=== PATIENT | female | born 1975 | race Caucasian/White ===

== ENCOUNTER 2020-08-09 14:16 | Outpatient (CLI) | payer BC, SELFPAY ==
--- NOTE | ~2020-08-09 | US_ITS ---
EXAMINATION: US pelvic complete w TV DATE: 08/09/2020 14:58 INDICATION: Post endometrial ablation syndrome. Pelvic pain and bleeding. TECHNIQUE: Multiple transabdominal and transvaginal sonographic images of the pelvis were obtained. COMPARISON: None. FINDINGS: TRANSABDOMINAL ULTRASOUND: The uterus measures 9.2 x 5.0 x 6.1 cm. There is no free fluid in the pelvis. TRANSVAGINAL ULTRASOUND: The endometrial complex measures 4 mm in thickness including trace fluid. The right ovary measures 1. 4 x 1.9 x 1.3 cm. The left ovary measures 2.2 x 2.5 x 1.2 cm. There is normal vascular flow in the ov taina. IMPRESSION: 1. Normal pelvis. Reviewed, dictated and finalized at location A. DESIGN ENGINEER IMPRESSION: 1. Normal pelvis.
[2020-08-09 15:36] LABS: Basophils Percent Auto 0.5 % (0.2-1.2); Eosinophils Absolute Auto 0.4 K/mm3 (0-0.3); Eosinophils Percent Auto 4.6 % (0-4.4); Hematocrit 44.6 % (37.0-47.0); Hemoglobin 14.5 g/dL (12.0-15.0); Immature Granulocyte Absolute 0.02 K/mm3 (0.00-0.031); Immature Granulocyte Percent A 0.2 % (0-0.5); Lymphocytes Absolute Auto 2.07 K/mm3 (0.9-3.2); Lymphocytes Percent Auto 25.5 % (18.3-44.2); Mean Corpuscular HGB Conc 32.5 g/dl (32-36); Mean Corpuscular Hemoglobin 29.5 pg (26-34); Mean Corpuscular Volume 90.7 fl (80-100); Monocytes Absolute Auto 0.5 K/mm3 (0.1-0.6); Monocytes Percent Auto 6.5 % (2.6-8.5); Neutrophils Absolute Auto 5.1 K/mm3 (1.3-6.7); Neutrophils Percent Auto 62.7 % (45.5-73.1); Platelet Count Result 322 k/mm3 (150-375); Red Blood Count 4.92 M/mm3 (4.2-5.4); Red Cell Distribution Width 12.7 % (11.5-14.5); White Blood Count 8.1 K/mm3 (4.5-10.0)
[2020-08-09 15:46] LABS: Hemoglobin A1C 5.3 % (<5.7)
[2020-08-09 15:50] LABS: Alanine Aminotransferase 23 U/L (4-35); Albumin Level 4.3 g/dL (3.5-5.1); Alkaline Phosphatase 73 U/L (38-126); Anion Gap 4 mmol/L (8-16); Aspartate Amino Transferase 28 U/L (14-36); Bilirubin,Total 0.5 mg/dL (0.2-1.3); Blood Urea Nitrogen 12 mg/dL (7-17); Calcium 9.2 mg/dL (8.4-10.2); Carbon Dioxide 32 mmol/L (22-30); Chloride 102 mmol/L (98-107); Cholesterol 261 mg/dL (0-200); Estimated Glomerular Filt Rate > 60; Glucose 88 mg/dL (65-105); HDL Direct 61 mg/dL; Potassium 4.2 mmol/L (3.4-5.0); Sodium 138 mmol/L (137-145); Triglycerides 117 mg/dL (<150)
[2020-08-09 16:01] LABS: LDL Cholesterol Direct 170 mg/dL
[2020-08-09 16:40] LABS: Iron 95 ug/dL (37-170)
[2020-08-09 16:49] LABS: Percent Iron Saturation 23 % (20-50)
[2020-08-12 11:31] LABS: FSH 91.7 mIU/mL (***); Prolactin 6.4 ng/mL (***)
[2020-08-12 16:05] LABS: DHEA-Sulfate 74 mcg/dL (19-231)
[2020-08-13 08:34] LABS: Testosterone Total 41 ng/dL (2-45)
[2020-08-15 23:06] LABS: Estradiol, Ultrasensitive 7 pg/mL
== END 2020-08-09 14:17 | disposition home or self-care (01) ==
PROVIDERS: Visit Provider Obstetrics & Gynecology
DX: Z78.0 Asymptomatic menopausal state (principal); N99.85 Post endometrial ablation syndrome; D64.9 Anemia, unspecified
CPT/HCPCS: 36415; 76830; 76856; 80053; 80061; 82627; 82670; 82728; 83001; 83036; 83540; 83550; 84146; 84403; 84443; 85025

== ENCOUNTER 2021-08-02 11:14 | Emergency (ER) | payer BC, SELFPAY ==
--- NOTE | ~2021-08-02 | XR_ITS ---
XR chest 1V portable DATE: 08/02/2021 12:28 INDICATION: Cough TECHNIQUE: Portable AP chest on 08/02/2021 2021 hours COMPARISON: None FINDINGS: Normal heart size. No hilar or mediastinal enlargement. No pulmonary infiltrate or consolid ation, pleural effusion or pulmonary vascular congestion or pneumothorax. IMPRESSION: No active cardiopulmonary disease Reviewed, dictated and finalized at location A. ECTOR WREATH
[2021-08-02 11:19] VITALS: BP 117/89; PULSE 90; RESP 16; TEMP 36.2; O2SAT 100
[2021-08-02 11:44] VITALS: O2SAT 98
--- NOTE | 2021-08-02 15:40 | ED.GENADULT ---
HPI - General Adult General Chief complaint: Upper Respiratory Infection <Nikki Nuñez PA-C - Last Filed: 08/02/21 15:45> Stated complaint: throat pain <CHATO Menchaca Last Filed: 08/02/21 15:45> Time Seen by Provider: 08/02/21 11:42 <Nikki Nuñez PA-C - Last Filed: 08/02/21 15:45> Source: patient <CHATO Menchaca Last Filed: 08/02/21 15:45> Mode of arrival: ambulatory <CHATO Menchaca Last Filed: 08/02/21 15:45> Limitations: no limitations <CHATO Menchaca Last Filed: 08/02/21 15:45> History of Present Illness HPI narrative: Patient is a 45-year-old female presenting with chief complaint of sore throat, cough, fatigue, headache, body aches over the past 3 to 4 days. Patient reports that she received her second COVID vaccination, but the day prior was with her sister who has now tested COVID-positive. Patient reports muscle soreness. Patient reports she has been taking Mucinex as her cough seems congested. Patient denies shortness of breath. Patient denies inability to eat or drink fluids. Patient denies chest pain, syncope, neurological deficits or any other emergent symptoms. <Nikki Nuñez PA-C - Last Filed: 08/02/21 15:45> Related Data Allergies/adverse reactions: Allergies Allergy/AdvReac Type Severity Reaction Status Date / Time No Known Allergies Allergy Verified 08/02/21 11:45 <Nikki Nuñez PA-C - Last Filed: 08/02/21 15:45> Review of Systems Review of Systems: CONSTITUTIONAL: Reports body aches denies fever, chills, or sweats. EYES: Denies visual changes, redness, or discharge. ENT: Reports otalgia, sore throat, congestion denies rhinorrhea CARDIOVASCULAR: Denies chest pain, palpitations, or edema. RESPIRATORY: Reports cough and chest congestion GASTROINTESTINAL: Denies abdominal pain, nausea, vomiting, or diarrhea. GENITOURINARY: Denies dysuria or hematuria. SKIN: Denies rash or itching. MUSCULOSKELETAL: Denies back pain, joint pain, or myalgia. NEUROLOGIC: Denies headache, numbness, dizziness, or weakness. PSYCHIATRIC: Denies anxiety or depression. <Nikki Nuñez PA-C - Last Filed: 08/02/21 15:45> Exam Narrative: GENERAL: Well-appearing, well-nourished, and in no acute distress. HEAD: Normocephalic, atraumatic. EYES: PERRLA and EOMI. ENT: Nares clear, no rhinorrhea or epistaxis. Mucous membranes moist. Oropharynx with mild irritation, no tonsillar hypertrophy exudate or other lesions. Airway patent. Bilateral TMs pearly wellington-serous fluid noted to the left ear without erythema CHEST: Clear to auscultation. No respiratory distress. No wheezes rales or rhonchi. Oxygen saturation 98% on room air. HEART: Regular rate and rhythm. EXTREMITIES: Normal range of motion. No edema. SKIN: Warm, dry, no rash. NEURO: No focal deficits. Alert and oriented x3. PSYCH: Normal mood and affect. <Nikki Nuñez PA-C - Last Filed: 08/02/21 15:45> Course SUPERVISOR TYPE DISK QUALITY CONTROL/PA Physician Supervision For this patient encounter, I reviewed the SUPERVISOR TYPE DISK QUALITY CONTROL or PA documentation, treatment plan, and medical decision making <Luis A Lopez MD - Last Filed: 08/02/21 16:43> Vital Signs Vital signs: Vital Signs Temperature 97.2 F L 08/02/21 11:19 Pulse Rate 90 08/02/21 11:19 Respiratory Rate 16 08/02/21 11:19 Blood Pressure 117/89 08/02/21 11:19 Pulse Oximetry 100 08/02/21 11:19 Temperature 97.2 F L 08/02/21 11:19 Pulse Rate 90 08/02/21 11:19 Respiratory Rate 16 08/02/21 11:19 Blood Pressure 117/89 08/02/21 11:19 Pulse Oximetry 98 08/02/21 11:44 <Nikki Nuñez PA-C - Last Filed: 08/02/21 15:45> Vital Signs Temperature 97.2 F L 08/02/21 11:19 Pulse Rate 90 08/02/21 11:19 Respiratory Rate 16 08/02/21 11:19 Blood Pressure 117/89 08/02/21 11:19 Pulse Oximetry 100 08/02/21 11:19 Temperature 97.2 F L 08/02/21 11:19 Pulse Rate 90 08/02/21 11:19 Respiratory Rate 16 08/02/21 1
[2021-08-02 21:12] LABS: SARS-CoV-2 RNA PCR Positive
== END 2021-08-02 13:33 | disposition home or self-care (01) ==
PROVIDERS: Physician Assistant; Emergency Provider Emergency Medicine
DX: U07.1 COVID-19 (principal)
CPT/HCPCS: 71045; 87081; 87804; 87880; 99283; C9803; U0003; U0005

== ENCOUNTER 2021-12-04 14:38 | Outpatient (CLI) | payer BC, SELFPAY ==
[2021-12-04 15:01] LABS: Basophils Percent Auto 0.6 % (0.2-1.2); Eosinophils Absolute Auto 0.3 K/mm3 (0-0.3); Eosinophils Percent Auto 4.5 % (0-4.4); Hematocrit 43.4 % (37.0-47.0); Hemoglobin 13.6 g/dL (12.0-15.0); Immature Granulocyte Absolute 0.02 K/mm3 (0.00-0.031); Immature Granulocyte Percent A 0.3 % (0-0.5); Lymphocytes Percent Auto 35.1 % (18.3-44.2); Mean Corpuscular HGB Conc 31.3 g/dl (32-36); Mean Corpuscular Hemoglobin 28.4 pg (26-34); Mean Corpuscular Volume 90.6 fl (80-100); Monocytes Absolute Auto 0.6 K/mm3 (0.1-0.6); Monocytes Percent Auto 8.7 % (2.6-8.5); Neutrophils Absolute Auto 3.6 K/mm3 (1.3-6.7); Neutrophils Percent Auto 50.8 % (45.5-73.1); Platelet Count Result 326 k/mm3 (150-375); Red Blood Count 4.79 M/mm3 (4.2-5.4); Red Cell Distribution Width 12.2 % (11.5-14.5); White Blood Count 7.1 K/mm3 (4.5-10.0)
[2021-12-04 15:51] LABS: Free T4 Free Thyroxine 1.26 ng/mL (0.78-2.19)
[2021-12-04 18:03] LABS: Alanine Aminotransferase 38 U/L (6-35); Albumin Level 4.3 g/dL (3.5-5.1); Alkaline Phosphatase 73 U/L (38-126); Anion Gap 4 mmol/L (8-16); Aspartate Amino Transferase 37 U/L (14-36); Bilirubin,Total 0.3 mg/dL (0.2-1.3); Blood Urea Nitrogen 10 mg/dL (7-17); Calcium 9.3 mg/dL (8.4-10.2); Carbon Dioxide 30 mmol/L (22-30); Chloride 103 mmol/L (98-107); Cholesterol 287 mg/dL (0-200); Estimated Glomerular Filt Rate > 60; Glucose 91 mg/dL (65-110); HDL Direct 52 mg/dL; Potassium 4.3 mmol/L (3.4-5.0); Sodium 137 mmol/L (137-145); Triglycerides 172 mg/dL (<150)
[2021-12-04 18:14] LABS: LDL Cholesterol Direct 169 mg/dL
[2021-12-04 18:32] LABS: Total Triiodothyronine (T3) 1.23 NG/ML (0.97-1.69)
== END 2021-12-04 14:39 | disposition home or self-care (01) ==
PROVIDERS: PCP Emergency Medicine; Visit Provider Emergency Medicine
DX: Z13.6 Encounter for screening for cardiovascular disorders (principal); E04.9 Nontoxic goiter, unspecified; R53.83 Other fatigue
CPT/HCPCS: 36415; 80053; 80061; 84439; 84443; 84480; 85025

== ENCOUNTER 2022-02-27 13:16 | Emergency (ER) | payer BC, SELFPAY ==
--- NOTE | ~2022-02-27 | XR_ITS ---
XR thoracic spine 3V 02/27/2022 14:01 Indication: Back pain Procedure: 3 views thoracic spine Comparison: No prior studies for comparison. Findings: Vertebral body heights are maintained. Pedicles intact. No paraspinal soft tissue abnormali ty. Surrounding osseous structures within normal limits. There is normal thoracic kyphosis. No parasp inal soft tissue abnormality. Impression: 1: No significant abnormality of the thoracic spine. Reviewed, dictated and finalized at location B. Impression: 1: No significant abnormality of the thoracic spine.
[2022-02-27 13:26] VITALS: BP 132/101; PULSE 104; RESP 16; TEMP 36.8; O2SAT 99
--- NOTE | 2022-02-27 13:38 | ED.BACK ---
HPI - Back Pain/Injury General Chief Complaint: Back Pain/Injury Stated Complaint: back pain Time Seen by Provider: 02/27/22 13:38 Source: patient, RN notes reviewed and old records reviewed Mode of arrival: ambulatory Limitations: no limitations History of Present Illness HPI Narrative: 46 year old female who presents to [facility] care with complaints of mid back discomfort, tightness to muscles in her thoracic back region since riding [place] [employer] about 2 weeks ago. Patient reports tightness feeling in mid back area and increased incidence of migraines. Patient reports that she has been taking Excedrin Migraine for her discomfort. Patient denies any radiation of pain to her arms or anytingling or numbness to her arms or fingers. MD elicited complaint: back pain Onset (ago): week(s) (2) Pain scale (0-10): 8 Location: thoracic spine Treatments prior to arrival: other (Excedrin migraine) Work related injury: No Related Data Allergies Allergy/AdvReac Type Severity Reaction Status Date / Time acetaminophen [From Vicodin] AdvReac Migraine Verified 12/04/21 13:57 hydrocodone [From Vicodin] AdvReac Migraine Verified 12/04/21 13:57 ibuprofen AdvReac Abdominal Verified 12/04/21 13:57 Pain Review of Systems Review of Systems: CONSTITUTIONAL: Denies fever, chills, or sweats. EYES: Denies visual changes, redness, or discharge. ENT: Denies rhinorrhea, congestion, sore throat, or otalgia. CARDIOVASCULAR: Denies chest pain, palpitations, or edema. RESPIRATORY: Denies cough or dyspnea. GASTROINTESTINAL: Denies abdominal pain, nausea, vomiting, or diarrhea. GENITOURINARY: Denies dysuria or hematuria. SKIN: Denies rash or itching. MUSCULOSKELETAL: Positive for thoracic back pain, joint pain, or myalgia. NEUROLOGIC: Reports increase in migraine headaches since having back pain,no numbness, or weakness. PSYCHIATRIC: Denies anxiety or depression. All systems reviewed & are unremarkable except as noted in HPI and below PMFSH Past Medical History Medical History Bronchitis Chicken pox Chills Hives Itching Miscarriage Pneumonia Trigger finger (~2011) Surgical History Surgical History History of endometrial ablation (~2018) History of tubal ligation (~1998) Family History Family History Father No known problems Mother No known problems Sibling Suicide Social History Social History Social History: Patient drinks caffeine twice weekly. 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 There is no relevant family history pertinent to the presenting complaint Exam Narrative: GENERAL: Well-appearing, well-nourished, and in no acute distress. HEAD: Normocephalic, atraumatic. EYES: PERRLA and EOMI. ENT: Nares clear, no rhinorrhea or epistaxis. Mucous membranes moist.TM's normal throat with no lesions or swelling NECK: Supple.no lymphadenopathy CHEST: Clear to auscultation. No respiratory distress.SAO2 99% on room air HEART: Regular rate and rhythm. No murmur heard. Normal peripheral pulses. ABDOMEN: Soft, nontender, nondistended, normal active bowel sounds. EXTREMITIES: Normal range of motion. No edema.Reported discomfort to mid back region for the past 2 weeks after riding [employer], patient denies any radiation of pain to her arms with no tingling or numbness to extremities. Patient states pa
== END 2022-02-27 14:24 | disposition home or self-care (01) ==
PROVIDERS: Emergency Provider Registered Nurse
DX: M54.6 Pain in thoracic spine (principal)
CPT/HCPCS: 72072; 99213; G0463

== ENCOUNTER 2022-03-09 11:56 | Emergency (ER) | payer BC, SELFPAY ==
[2022-03-09 12:15] VITALS: BP 133/105; PULSE 91; RESP 16; TEMP 36.6; O2SAT 99
--- NOTE | 2022-03-09 13:27 | ED.GENADULT ---
HPI - General Adult General Chief complaint: Skin/Abscess/Foreign Body Stated complaint: rash Source: patient Mode of arrival: ambulatory Limitations: no limitations History of Present Illness HPI narrative: Patient presents for evaluation of rash to the right side of her back since yesterday. She states she was riding a rollercoaster recently and experienced some pain in the middle of the back. Last week she developed some right sided back pain which she attributed to compensatory positioning. She states that pain improved. Last night she noted a red spot to right side of her back. This morning she developed several additional spots in the same region. She states she popped one of them. She informed me that she does not have associated pain or pruritis but later tells me she has both symptoms. 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 No new lotions, soaps, detergents or topical products. She is not using any medications to assist with her symptoms. She has a hx of chickenpox and states she has been diagnosed with shingles five times. She states she has never actually had viral swab performed for this diagnosis and diagnosis was made based on physical exam alone. She is wondering if perhaps she has monkeypox as she has also experienced headache, body aches and fatigue. Related Data Allergies Allergy/AdvReac Type Severity Reaction Status Date / Time ibuprofen AdvReac Abdominal Verified 03/09/22 12:08 Pain Review of Systems Review of Systems: CONSTITUTIONAL: Reports recent fatigue. Denies fever, chills, or sweats. EYES: Denies visual changes, redness, or discharge. ENT: Denies rhinorrhea, congestion, sore throat, or otalgia. CARDIOVASCULAR: Denies chest pain, palpitations, or edema. RESPIRATORY: Denies cough or dyspnea. GASTROINTESTINAL: Denies abdominal pain, nausea, vomiting, or diarrhea. GENITOURINARY: Denies dysuria or hematuria. SKIN: Reports rash to right side of her pain. Reports any denies presence of itching MUSCULOSKELETAL: Reports and denies back pain. Reports recent body aches NEUROLOGIC: Reports recent headaches, none currently. Denies numbness, dizziness, or weakness. PSYCHIATRIC: Denies anxiety or depression. [facility] Past Medical History Medical History Bronchitis Chicken pox Chills Hives Itching Miscarriage Pneumonia Trigger finger (~2011) Surgical History Surgical History History of endometrial ablation (~2017) History of tubal ligation (~1998) Family History Family History Father No known problems Mother No known problems Sibling Suicide Social History Social History Social History: Patient drinks caffeine twice weekly. 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 HEAD: Normocephalic, atraumatic. EYES: PERRLA and EOMI. ENT: Nares clear, no rhinorrhea or epistaxis. Mucous membranes moist. Oropharynx without tonsillar hypertrophy exudate or other lesions. Bilateral TMs pearly wellington nonbulging NECK: Supple. No adenopathy or masses. No carotid bruits or JVD CHEST: Clear to auscultation. No respiratory distress. No wheezes rales or rhonchi HEART: Regular rate and rhythm. No murmur heard. Normal peripheral pulses. ABDOMEN: Soft, nontender, nondistended, normal active bowel sounds. EXTREMITIES: Normal range of motion. No
== END 2022-03-09 13:32 | disposition home or self-care (01) ==
PROVIDERS: Emergency Provider Nurse Practitioner; PCP Emergency Medicine
DX: R21 Rash and other nonspecific skin eruption (principal)
CPT/HCPCS: 87255; 99213; G0463

== ENCOUNTER 2022-08-21 17:36 | Emergency (ER) | payer MEDICAID, SELFPAY ==
--- NOTE | ~2022-08-21 | XR_ITS ---
EXAMINATION: XR abdomen/kub 1V DATE: 08/21/2022 18:09 INDICATION: Constipation TECHNIQUE: A supine view of the abdomen on 2 radiographs was obtained. COMPARISON: None. FINDINGS: Prominent gaseous distention of the stomach. There is a mildly dilated loop of small bowel measuring up to 4.2 cm in the left abdomen. There are multiple additional gas-filled but not likely dilated loo ps of large and small bowel scattered throughout the abdomen. Bones are unremarkable. IMPRESSION: 1. Mild dilation of a loop of small bowel in the left abdomen gaseous distention of the stomach which could be due to ileus or obstruction. Reviewed, dictated and finalized at location A. E COACH IMPRESSION: 1. Mild dilation of a loop of small bowel in the left abdomen gaseous distentio n of the stomach which could be due to ileus or obstruction.
[2022-08-21 17:47] VITALS: BP 151/111; PULSE 87; RESP 16; TEMP 36.2; O2SAT 100
--- NOTE | 2022-08-21 17:48 | ED.ABDPAIN ---
HPI - Abdominal Pain General Chief Complaint: Abdominal Pain Stated Complaint: CONSTIPATION Time Seen by Provider: 08/21/22 17:40 Source: patient and RN notes reviewed History of Present Illness HPI narrative: Patient is a 46-year-old female who presents to urgent care with complaints of upper abdominal discomfort. Patient states that she started Mounjaro approximately a week and half ago, taking her 2nd shot on Friday. Patient states that her primary care advised her to go to the emergency room for evaluation on possible obstruction. Patient was aware when starting the medication that that was a common side effect. Patient denies any nausea, vomiting, bleeding from the rectum. Patient states she has taken Dulcolax, enema home, and increased her fiber protein intake. No other acute complaints. No acute distress noted. Patient aware of the plan of care. Some parts of this dictation were generated by voice recognition software and may contain typographical and/or grammatical inaccuracies. Related Data Allergies Allergy/AdvReac Type Severity Reaction Status Date / Time ibuprofen AdvReac Abdominal Verified 08/21/22 18:00 Pain Review of Systems Review of Systems: CONSTITUTIONAL: Denies fever, chills, or sweats. EYES: Denies visual changes, redness, or discharge. ENT: Denies rhinorrhea, congestion, sore throat, or otalgia. CARDIOVASCULAR: Denies chest pain, palpitations, or edema. RESPIRATORY: Denies cough or dyspnea. GASTROINTESTINAL: Reports of constipation with passing gas and belching with upper abdominal discomfort GENITOURINARY: Denies dysuria or hematuria. SKIN: Denies rash or itching. MUSCULOSKELETAL: Denies back pain, joint pain, or myalgia. NEUROLOGIC: Denies headache, numbness, or weakness. All other systems reviewed are negative, except as documented in HPI. [facility] Past Medical History Medical History (Updated 08/21/22 @ 18:59 by CHAPO Crawford) Bronchitis Chicken pox Chills Hives Itching Miscarriage Pneumonia Trigger finger (~2011) Surgical History Surgical History History of endometrial ablation (~2017) History of tubal ligation (~1998) Family History Family History Father No known problems Mother No known problems Sibling Suicide Social History Social History Social History: Patient drinks caffeine twice weekly. 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 There is no relevant family history pertinent to the patient complaint. Exam Narrative: GENERAL: This is a well-nourished, well-developed patient, in no apparent distress. HEAD: normocephalic, atraumatic. EYES: PERRL. Sclera clear/white. Vision is grossly intact. EARS: External ears normal NOSE: External nose normal with no obvious nasal discharge, nares without redness, no rhinorrhea. THROAT: Mucous membranes moist NECK: Neck supple CARDIOVASCULAR: Regular rate and rhythm without murmurs, gallops, or rubs. RESPIRATORY: Clear to auscultation. Breath sounds equal bilaterally. No wheezes, rales, or rhonchi. GASTROINTESTINAL: Hypoactive bowel sounds with mild epigastric tenderness, mild distension SKIN: warm, intact with no suspicious lesions or rash, good texture and turgor. NEURO: awake, alert, and oriented to person, place and time. There were no obvious focal ne
--- NOTE | 2022-08-21 18:47 | PC.NURSE ---
PT CONTINUES TO BELCH, DENIES ANY PAIN. PT REPORTS SHE JUST FEELS IF SHE IS BLOCKED. PT IS AWAITING XRAY RESULTS. NAD NOTED. WILL CONTINUE TO MONITOR.
[2022-08-21 18:55] VITALS: BP 150/98; PULSE 80; RESP 16; O2SAT 98
== END 2022-08-21 18:55 | disposition short-term general hospital (02) ==
PROVIDERS: Emergency Provider Nurse Practitioner Family; PCP Emergency Medicine
DX: K59.00 Constipation, unspecified (principal)
CPT/HCPCS: 74018; 99213; G0463

== ENCOUNTER 2022-08-21 19:28 | Emergency (ER) | payer MEDICAID, SELFPAY ==
[2022-08-21] VITALS (10 sets, daily range): BP systolic 118–142; BP diastolic 86–103; PULSE 104; RESP 18; TEMP 36.6; O2SAT 95–100
--- NOTE | ~2022-08-21 | CT_ITS ---
EXAMINATION: CT abdomen pelvis w con DATE: 08/21/2022 21:35 INDICATION: Small bowel obstruction versus ileus TECHNIQUE: Computed tomography (CT) of the abdomen and pelvis was performed with 100 mL Omnipaque-350 intravenous contrast. Automated exposure control and iterative reconstruction technique were employe d. The dose-length product was 1262.26 mGy-cm. COMPARISON: None FINDINGS: Lung bases are clear. Heart size is normal. No pericardial or pleural effusion. There is gaseous dist ention of the stomach with small amount of fluid and debris at the gastric antrum extending through t he patent pylorus into the relatively decompressed duodenum. There is gas scattered throughout multip le nondilated loops of small bowel in the abdomen. The prior mildly dilated gas-filled loop of small bowel is not appreciated on the current study. Moderate amount of gas and stool scattered throughout the colon. Normal appendix. Multiple small low-attenuation hepatic cysts the largest measuring 1.6 cm . Gallbladder, pancreas, spleen, bilateral adrenal glands and left kidney are normal. There are coupl e low-attenuation right renal cysts measuring up to 8mm. 5 mm stone at a lower pole calyx of the righ t kidney. No other stones in the right kidney, left kidney or bilateral ureters. No hydronephrosis. B ladder, uterus and bilateral adnexa are unremarkable. No free intraperitoneal gas or fluid. No pathol ogically enlarged abdominal or pelvic lymphadenopathy. Bones are unremarkable. IMPRESSION: 1. Nonspecific persistent prominent gaseous distention of the stomach but with patent pylorus and no evident bowel obstruction. 2. 5 mm nonobstructing right renal stone. Reviewed, dictated and finalized at location A. ICATIONS SUPPORT ANALYST
[2022-08-21 20:10] LABS: Basophils Absolute Auto 0.1 K/mm3 (0.0-0.1); Basophils Percent Auto 0.6 % (0.2-1.2); Eosinophils Absolute Auto 0.3 K/mm3 (0-0.3); Eosinophils Percent Auto 3.1 % (0-4.4); Hematocrit 43.9 % (37.0-47.0); Hemoglobin 14.1 g/dL (12.0-15.0); Immature Granulocyte Absolute 0.02 K/mm3 (0.00-0.031); Immature Granulocyte Percent A 0.2 % (0-0.5); Lymphocytes Absolute Auto 2.77 K/mm3 (0.9-3.2); Lymphocytes Percent Auto 29.5 % (18.3-44.2); Mean Corpuscular HGB Conc 32.1 g/dl (32-36); Mean Corpuscular Volume 90.3 fl (80-100); Mean Platelet Volume 10.4 fl (7.4-10.4); Monocytes Absolute Auto 0.6 K/mm3 (0.1-0.6); Monocytes Percent Auto 6.4 % (2.6-8.5); Neutrophils Absolute Auto 5.7 K/mm3 (1.3-6.7); Neutrophils Percent Auto 60.2 % (45.5-73.1); Platelet Count Result 290 k/mm3 (150-375); Red Blood Count 4.86 M/mm3 (4.2-5.4); Red Cell Distribution Width 12.4 % (11.5-14.5); White Blood Count 9.4 K/mm3 (4.5-10.0)
[2022-08-21 20:22] LABS: Alanine Aminotransferase 28 U/L (6-35); Albumin Level 4.2 g/dL (3.5-5.1); Alkaline Phosphatase 70 U/L (38-126); Anion Gap 9 mmol/L (8-16); Aspartate Amino Transferase 29 U/L (14-36); Bilirubin,Total 0.5 mg/dL (0.2-1.3); Blood Urea Nitrogen 15 mg/dL (7-17); Calcium 8.8 mg/dL (8.4-10.2); Carbon Dioxide 25 mmol/L (22-30); Chloride 102 mmol/L (98-107); Estimated CRCL calculation 94 ml/min; Estimated Glomerular Filt Rate > 60; Glucose 112 mg/dL (65-110); Lipase 62 U/L (23-300); Potassium 3.9 mmol/L (3.4-5.0); Sodium 136 mmol/L (137-145)
--- NOTE | 2022-08-21 21:16 | ED.ABDPAIN ---
HPI - Abdominal Pain General Chief Complaint: Abdominal Pain Stated Complaint: bowel obstruction- urgent care Time Seen by Provider: 08/21/22 19:35 History of Present Illness HPI narrative: Patient is a 46-year-old female here for evaluation of constipation for the past 10 days. Patient states that she has not passed any stool during this time. She has been belching and has passed gas. She has attempted Dulcolax, fleets enema and increase her fiber intake without relief. She recently started a new medication for diabetes. She denies any abdominal pain, nausea, vomiting, fevers, chills. She had her tubes tied but has had no other abdominal surgeries. She presented to an urgent care facility today who saw an ileus versus bowel obstruction on her x-ray and sent her here. Related Data Allergies Allergy/AdvReac Type Severity Reaction Status Date / Time ibuprofen AdvReac Abdominal Verified 08/21/22 21:22 Pain Review of Systems Review of Systems: Gen.: Denies fevers or chills Eyes: Denies eye pain or visual change ENT: Denies congestion Respiratory: Denies shortness of breath or cough CV: Denies chest pain or palpitations GI: Reports constipation denies burning, urgency, frequency or hematuria Musculoskeletal: Denies back pain or muscle pain Neuro: Denies numbness, tingling, weakness or focal weakness Skin: Denies rash Except as documented, all other systems reviewed and negative [facility] Past Medical History Medical History Bronchitis Chicken pox Chills Hives Itching Miscarriage Pneumonia Trigger finger (~2011) Surgical History Surgical History History of endometrial ablation (~2017) History of tubal ligation (~1998) Family History Family History Father No known problems Mother No known problems Sibling Suicide Social History Social History Social History: Patient drinks caffeine twice weekly. 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 Head: Normocephalic and atraumatic. EYES: PERRLA/EOMI, conjunctivae clear NOSE: No nasal drainage EARS: External ear normal in appearance THROAT: Oropharynx is clear. Mucous membranes are moist. NECK: Supple. No adenopathy, no masses. RESPIRATORY: Airway patent, respirations nonlabored. Clear to auscultation bilaterally, no rales, rhonchi, wheezing. CARDIOVASCULAR: Regular rate and rhythm without murmurs, rubs, or gallops. ABDOMINAL: Hyperactive bowel sounds. Soft, nontender, nondistended. No rebound tenderness or guarding. MUSCULOSKELETAL: Extremities are warm and well-perfused. Moves all extremities well. No edema. NEURO: Normal speech. No focal neurologic deficits. SKIN: Skin is warm and dry. No rashes. PSYCHIATRIC: Normal affect/mood.. Course Vital Signs Vital signs: Vital Signs Temperature 97.8 F 08/21/22 19:51 Pulse Rate 104 H 08/21/22 19:51 Respiratory Rate 18 08/21/22 19:51 Blood Pressure 142/103 H 08/21/22 19:51 Pulse Oximetry 100 08/21/22 19:51 Oxygen Delivery Room Air 08/21/22 19:51 Temperature 97.8 F 08/21/22 19:51 Pulse Rate 104 H 08/21/22 19:51 Respiratory Rate 18 08/21/22 19:51 Blood Pressure 118/86 08/21/22 22:01 Pulse Oximetry 95 08/21/22 22:30 Oxygen Delivery Room Air 08/21/22 19:51 MDM - Abdominal Pain MDM
[2022-08-21 21:34] LABS: Appearance Urine Clear (Clear); Bilirubin Urine 1+ (Negative); Blood Urine Negative (Negative); Color Urine Yellow (Yellow); Glucose Urine UA Negative (Negative); Ketones Urine 4+ mg/dL (Negative); Leukocyte Esterase Ur Negative LEU/UL (Negative); Nitrate Urine Negative (Negative); Protein Urine Trace mg/dL (Negative); Specific Grav Ur >= 1.030 (1.001-1.035); Urobilinogen Urine 0.2 mg/dL (<2.0); pH Urine 5.5 (5.0-9.0)
[2022-08-21 21:39] LABS: Lactic Acid Reflex 1.2 mmol/L (0.7-2.0)
[2022-08-21 21:43] LABS: Bacteria Urine Trace /hpf; Mucus Urine Rare /lpf; Squamous Epithelial Cell Urine Occasional /hpf (Few); WBC Urine 16-20 /hpf
[2022-08-21] MEDS: SODIUM CHLORIDE 0.9% IV 1,000 ML 999 ML IV CONT (21:45)
[2022-08-21 21:46] LABS: Add Urine Microscopic? YES
[2022-08-21] MEDS: MAGNESIUM HYDROXIDE SUSP 30 ML UDC PO (22:15)
== END 2022-08-21 22:51 | disposition home or self-care (01) ==
PROVIDERS: Emergency Medicine; Emergency Provider Physician Assistant; PCP Emergency Medicine
DX: K59.00 Constipation, unspecified (principal)
CPT/HCPCS: 36415; 74177; 80053; 81001; 81025; 83605; 83690; 85025; 87086; 96360; 99284; A9270; J7030; Q9967

== ENCOUNTER 2022-08-27 11:28 | Outpatient (CLI) | payer MEDICAID, SELFPAY ==
[2022-08-27 12:07] LABS: Alanine Aminotransferase 24 U/L (6-35); Albumin Level 4.6 g/dL (3.5-5.1); Alkaline Phosphatase 72 U/L (38-126); Anion Gap 5 mmol/L (8-16); Aspartate Amino Transferase 28 U/L (14-36); Bilirubin,Total 0.5 mg/dL (0.2-1.3); Blood Urea Nitrogen 11 mg/dL (7-17); Calcium 8.8 mg/dL (8.4-10.2); Carbon Dioxide 28 mmol/L (22-30); Chloride 103 mmol/L (98-107); Cholesterol 220 mg/dL (0-200); Estimated Glomerular Filt Rate > 60; Glucose 87 mg/dL (65-110); HDL Direct 47 mg/dL; Potassium 4.2 mmol/L (3.4-5.0); Sodium 136 mmol/L (137-145); Triglycerides 94 mg/dL (<150)
[2022-08-27 12:16] LABS: Hemoglobin A1C 5.4 % (<5.7)
[2022-08-27 12:18] LABS: LDL Cholesterol Direct 119 mg/dL
[2022-08-31 12:20] LABS: Vitamin D 1,25 (OH)2 Total 50 pg/mL (18-72); Vitamin D2 1,25 (OH)2 <8 pg/mL; Vitamin D3 1,25 (OH)2 50 pg/mL
== END 2022-08-27 11:29 | disposition home or self-care (01) ==
LOC: ANHLAB 11:30
PROVIDERS: PCP Emergency Medicine; Visit Provider Emergency Medicine
DX: E11.9 Type 2 diabetes mellitus without complications (principal); I10 Essential (primary) hypertension; E55.9 Vitamin D deficiency, unspecified; L98.9 Disorder of the skin and subcutaneous tissue, unspecified
CPT/HCPCS: 36415; 80053; 80061; 82652; 83036

== ENCOUNTER 2022-09-24 15:40 | Outpatient (CLI) | payer MEDICAID, SELFPAY ==
--- NOTE | ~2022-09-24 | XR_ITS ---
Cervical Spine: AP, lateral, open-mouth views Clinical History: Pain Findings: There is straightening of the normal cervical lordosis. The vertebral bodies and posterior elements appear intact. The intervertebral disc spaces are well maintained. Pre-vertebral soft tiss ues are unremarkable. Impression: Straightening of the normal cervical lordosis, otherwise unremarkable exam. Reviewed, dictated and finalized at location . Impression: Straightening of the normal cervical lordosis, otherwise unremarkable exam.
== END 2022-09-24 15:41 | disposition home or self-care (01) ==
PROVIDERS: PCP Emergency Medicine; Visit Provider Emergency Medicine
DX: M79.18 Myalgia, other site (principal)
CPT/HCPCS: 72040

== ENCOUNTER 2022-09-30 14:35 | Emergency (ER) | payer MEDICAID, SELFPAY ==
[2022-09-30 14:42] VITALS: BP 138/84; PULSE 100; RESP 18; TEMP 36.2; O2SAT 99
[2022-09-30] MEDS: LIDOCAINE HCL 2% VISC SOLN 15 ML UDC PO (15:51)
[2022-09-30 16:07] LABS: Influenza A QL RT-PCR Negative (Negative); Influenza B QL RT-PCR Negative (Negative); SARS-CoV-2 RNA PCR Negative
[2022-09-30 16:45] LABS: Strep Group A RT-PCR NOT DETECTED (Negative)
--- NOTE | 2022-09-30 17:03 | ED.GENADULT ---
HPI - General Adult General Chief complaint: Unspecified Stated complaint: tonsils enlarged, needs testing for ent Time Seen by Provider: 09/30/22 15:04 History of Present Illness HPI narrative: Patient is a 46-year-old female who presents ER with sore throat. Ongoing over the last 5 days. Has a hoarse voice. Has runny nose as well as cough. Has pain when she tries to swallow. She is able to tolerate oral secretions. She has tried [id number] naproxen, ibuprofen, Tylenol. She is also tried oxycodone and hydrocodone. She reports she took some TheraFlu today and this is the best her throat is felt. No nausea or vomiting. No fevers or chills or sweats. No known sick contacts. Related Data Allergies Allergy/AdvReac Type Severity Reaction Status Date / Time ibuprofen AdvReac Abdominal Verified 09/24/22 10:27 Pain Review of Systems Review of Systems: All systems reviewed & are unremarkable except as noted in HPI and below Constitutional: Constitutional: Denies chills and Denies fever(s) ENT: Reports dry mouth, Denies lip swelling, Reports nasal discharge, Reports sore throat and Denies throat swelling Respiratory: Respiratory: Reports cough, Denies dyspnea and Denies wheezing PMFSH Past Medical History Medical History Bronchitis Chicken pox Chills Hives Itching Miscarriage Pneumonia Trigger finger (~2011) Surgical History Surgical History History of endometrial ablation (~2017) History of tubal ligation (~1998) Family History Family History Father No known problems Mother No known problems Sibling Suicide Social History Social History Social History: Patient drinks caffeine twice weekly. 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 HEAD: Normocephalic, atraumatic. ENT: Uvula midline and nonedematous. Tonsils without hypertrophy or exudate. Tolerating oral secretions without issue. NECK: Supple. CHEST: Clear to auscultation. No respiratory distress. HEART: Regular rate and rhythm. Normal peripheral pulses. EXTREMITIES: Normal range of motion. No edema. NEURO: Alert and oriented x3. PSYCH: Normal mood and affect. Course Course Emergency Course: Patient resting comfortably. She will be given some steroids for her pharyngitis. Tonsils do not seem particularly enlarged though patient feels like the arm. There is no evidence of respiratory compromise as there is no stridor or dyspnea, she is tolerating secretions and taking medications by mouth. She will be discharged home with some codeine cough syrup. Vital Signs Vital signs: Vital Signs Temperature 97.2 F L 09/30/22 14:42 Pulse Rate 100 09/30/22 14:42 Respiratory Rate 18 09/30/22 14:42 Blood Pressure 138/84 09/30/22 14:42 Pulse Oximetry 99 09/30/22 14:42 Temperature 97.2 F L 09/30/22 14:42 Pulse Rate 100 09/30/22 14:42 Respiratory Rate 18 09/30/22 14:42 Blood Pressure 138/84 09/30/22 14:42 Pulse Oximetry 99 09/30/22 14:42 Medical Decision Making Vital Signs Vital Signs: Vital Signs Temperature 97.2 F L 09/30/22 14:42 Pulse Rate 100 09/30/22 14:42 Respiratory Rate 18 09/30/22 14:42 Blood Pressure 138/84 09/30/22 14:42 Pulse Oximetry 99 09/30/22 14:42 Temperature 97.2 F L 09/30/22 14:42 P
== END 2022-09-30 17:44 | disposition home or self-care (01) ==
PROVIDERS: Emergency Medicine; Emergency Provider Emergency Medicine
DX: J02.9 Acute pharyngitis, unspecified (principal); Z20.822 Contact with and (suspected) exposure to COVID-19; Z87.01 Personal history of pneumonia (recurrent)
CPT/HCPCS: 87636; 87651; 99283; J8540

== ENCOUNTER 2023-04-07 17:16 | Emergency (ER) | payer OTHER, SELFPAY ==
--- NOTE | 2023-04-07 17:22 | ED.EAR ---
HPI - Ear Problem General Chief complaint: Head Injury Stated complaint: Earache Time Seen by Provider: 04/07/23 17:22 Source: patient Mode of arrival: ambulatory Limitations: no limitations History of Present Illness HPI Narrative: Patient is a 47-year-old female who presents with 5 days of left sharp shooting ear pain. Patient states it started after having neck decompression a chiropractor. Patient states the pain just comes and goes but is not associated with movement of the ear, chewing, or moving head side to side. Denies any tenderness on palpation to pre or post auricular areas. Denies any swelling, redness or warmth to the areas around here. Has been taking Excedrin with mild relief. Has also tried marijuana edible and sinus medication with no relief. Denies any changes in vision, lock jaw, headache, numbness, tingling or weakness to 1 side of body. MD Complaint: ear pain Related Data Allergies Allergy/AdvReac Type Severity Reaction Status Date / Time ibuprofen AdvReac Abdominal Verified 09/24/22 10:27 Pain Review of Systems Review of Systems: All systems reviewed & are unremarkable except as noted in HPI and below Constitutional: Constitutional: Denies body ache(s), Denies chills, Denies fever(s), Denies headache(s) and Denies malaise Eyes: Eyes: Denies blurry vision, Denies eye discharge and Denies irritation ENT: Reports otalgia, Denies headache(s), Denies nasal congestion, Denies nasal discharge and Denies sore throat Cardiovascular: Cardiovascular: Denies chest pain, Denies edema, Denies palpitations and Denies dyspnea on exertion Respiratory: Respiratory: Denies cough and Denies dyspnea on exertion Gastrointestinal: Gastrointestinal: Denies abdominal pain, Denies diarrhea, Denies nausea and Denies vomiting Musculoskeletal: Musculoskeletal: Denies back pain, Denies arthralgias and Denies muscle weakness Integumentary/Breasts: Skin/Breast: Denies pruritus and Denies rash Neurologic: Denies headache(s) Psychiatric: Psychiatric: Reports no additional psychiatric complaints Endocrine: Endocrine: Denies palpitations PMFSH Past Medical History Medical History Bronchitis Chicken pox Chills Hives Itching Miscarriage Pneumonia Trigger finger (~2011) Surgical History Surgical History History of endometrial ablation (~2018) History of tubal ligation (~1998) Family History Family History Father No known problems Mother No known problems Sibling Suicide Social History Social History Social History: Patient drinks caffeine twice weekly. 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 There is no relevant family history pertinent to the presenting complaint? Exam Const: General: cooperative, healthy appearing, no acute distress and well nourished Nutritional Appearance: well nourished Orientation/consciousness: patient oriented x3 Limitations: no limitations HENMT: Head: normal to inspection, normocephalic and atraumatic Ears: hearing grossly normal bilaterally, TM's normal bilaterally, EAC's normal, mastoids normal bilaterally not edematous, nontender and no erythema, no periauricular adenopathy and no periauricular adenopathy Face/Nose/Sinus: Normal external nose present, Normal nares present, Normal
[2023-04-07 17:23] VITALS: BP 128/92; PULSE 88; RESP 16; TEMP 36.3; O2SAT 100
[2023-04-07 17:30] VITALS: BP 128/92; PULSE 88; RESP 16; TEMP 36.3; O2SAT 100
== END 2023-04-07 18:12 | disposition home or self-care (01) ==
PROVIDERS: Emergency Provider Nurse Practitioner Family; PCP Emergency Medicine
DX: H92.02 Otalgia, left ear (principal); J40 Bronchitis, not specified as acute or chronic
CPT/HCPCS: 99213; G0463

== ENCOUNTER 2023-04-11 10:48 | Outpatient (CLI) | payer OTHER, SELFPAY ==
[2023-04-11 12:47] LABS: Folic Acid 7.5 ng/mL (2.76->20)
[2023-04-16 10:08] LABS: Vitamin B1 11 nmol/L (8-30)
[2023-04-17 03:52] LABS: Alpha-Tocopherol 11.5 mg/L (5.7-19.9); Beta-Gamma Tocopherol 1.9 mg/L (<=4.3); Vitamin A 42 mcg/dL (38-98)
== END 2023-04-11 10:49 | disposition home or self-care (01) ==
LOC: ANHLAB 10:50
PROVIDERS: PCP Emergency Medicine; Visit Provider Emergency Medicine
DX: E56.9 Vitamin deficiency, unspecified (principal); E55.9 Vitamin D deficiency, unspecified
CPT/HCPCS: 36415; 82306; 82607; 82746; 84207; 84425; 84446; 84590

== ENCOUNTER 2023-04-21 10:22 | Outpatient (CLI) | payer OTHER, SELFPAY ==
[2023-04-23 17:45] LABS: Iodine Serum/Plasma 63 mcg/L (52-109)
== END 2023-04-21 10:23 | disposition home or self-care (01) ==
PROVIDERS: PCP Emergency Medicine; Visit Provider Emergency Medicine
DX: E56.9 Vitamin deficiency, unspecified (principal); E04.9 Nontoxic goiter, unspecified; R53.83 Other fatigue
CPT/HCPCS: 36415; 82180; 82542

== ENCOUNTER 2023-07-17 12:19 | Outpatient (CLI) | payer OTHER, SELFPAY ==
[2023-07-17 13:35] LABS: Thyroid Stimulating Hormone 0.052 uIU/mL (0.465-4.680)
[2023-07-17 14:02] LABS: Free T4 Free Thyroxine 1.14 ng/mL (0.78-2.19)
[2023-07-20 05:14] LABS: Thyroid Peroxidase Antibodies <1 IU/mL (<9)
[2023-07-21 14:32] LABS: Thyroid Stimulating Immunoglob <89 % baseline (<140)
[2023-07-21 20:40] LABS: Thyrotropin Receptor Antibody <1.00 IU/L (<=2.00)
== END 2023-07-17 12:20 | disposition home or self-care (01) ==
LOC: ANHLAB 12:21
PROVIDERS: PCP Emergency Medicine; Visit Provider Internal Medicine
DX: E04.9 Nontoxic goiter, unspecified (principal); E66.9 Obesity, unspecified; R53.83 Other fatigue
CPT/HCPCS: 36415; 83519; 84439; 84443; 84445; 86376

== ENCOUNTER 2023-07-25 16:30 | Outpatient (CLI) | payer OTHER, SELFPAY ==
--- NOTE | ~2023-07-25 | US_ITS ---
Thyroid ultrasound. Clinical History: Nontoxic goiter Findings: Real-time sonography of the thyroid gland was performed. The right lobe measures 4.5 x 1.4 x 1.8 cm. The left lobe measures 4.1 x 1.4 x 1.7 cm. The isthmus is 4 mm in AP diameter. There is a 5 mm hypoechoic versus cystic nodule at the posterior right upper pole. Impression: 5 mm right thyroid lobe nodule. Given small size, no further follow-up required.. Reviewed, dictated and finalized at location [facility] Impression: 5 mm right thyroid lobe nodule. Given small size, no further follow-up required ..
== END 2023-07-25 16:31 | disposition home or self-care (01) ==
LOC: ANHIMG 16:33
PROVIDERS: PCP Emergency Medicine; Visit Provider Internal Medicine
DX: E04.9 Nontoxic goiter, unspecified (principal)
CPT/HCPCS: 76536

== ENCOUNTER 2023-08-08 09:25 | Outpatient (RCR) | payer OTHER, SELFPAY | END 2023-11-04 23:59 | disposition home or self-care (01) | LOC: ANHLAB 09:25 | PROVIDERS: PCP Emergency Medicine; Visit Provider Internal Medicine | DX: E04.9 Nontoxic goiter, unspecified (principal); E66.9 Obesity, unspecified; R53.83 Other fatigue | CPT/HCPCS: 82530 ==

== ENCOUNTER 2023-08-12 13:30 | Outpatient (CLI) | payer OTHER, SELFPAY ==
--- NOTE | ~2023-08-12 | NM_ITS ---
EXAMINATION: NM thyroid scan w uptake DATE: 08/13/2023 14:54 INDICATION: Thyroid nodule. COMPARISON: Ultrasound dated 07/25/2023 TECHNIQUE: 376 microcuries [id number] was administered orally in capsule form. Scintigraphic images of th e thyroid gland were obtained at 24 hours. Thyroid uptake was calculated by the technologist. FINDINGS: The thyroid uptake is 19.5% (normal 10-30%), with the right lobe measuring 10.9% uptake and the left 8.9%. There is no focal area of decreased or increased activity to suggest hypofunctioning or hyperfu nctioning nodule. IMPRESSION: 1. Normal thyroid scintigraphy and 24-hour iodine uptake. Reviewed, dictated and finalized at location [facility] [employer]
== END 2023-08-12 13:31 | disposition home or self-care (01) ==
PROVIDERS: PCP Emergency Medicine; Visit Provider Internal Medicine
DX: E04.9 Nontoxic goiter, unspecified (principal); E05.10 Thyrotoxicosis with toxic single thyroid nodule without thyrotoxic crisis or storm
CPT/HCPCS: 78014; A9516

== ENCOUNTER 2023-12-18 14:41 | Outpatient (CLI) | payer OTHER, SELFPAY ==
[2023-12-19 01:24] LABS: Hemoglobin A1C 5.3 % (<5.7)
[2023-12-19 12:58] LABS: Vitamin D 25 Hydroxy 22.7 ng/mL
== END 2023-12-18 14:42 | disposition home or self-care (01) ==
LOC: ANHLAB 14:42
PROVIDERS: PCP Emergency Medicine; Visit Provider Internal Medicine
DX: E04.9 Nontoxic goiter, unspecified (principal); R63.5 Abnormal weight gain
CPT/HCPCS: 36415; 82306; 82607; 83036; 84439; 84443

== ENCOUNTER 2023-12-23 16:43 | Outpatient (CLI) | payer OTHER, SELFPAY | END 2023-12-23 16:44 | disposition home or self-care (01) | LOC: ANHLAB 16:45 | PROVIDERS: PCP Emergency Medicine; Visit Provider Internal Medicine | DX: E04.9 Nontoxic goiter, unspecified (principal); R63.5 Abnormal weight gain | CPT/HCPCS: 82530; 87497 ==

== ENCOUNTER 2023-12-24 15:39 | Outpatient (CLI) | payer OTHER, SELFPAY ==
[2023-12-31 15:13] LABS: Cortisol, Saliva 0.03 mcg/dL
== END 2023-12-24 15:40 | disposition home or self-care (01) ==
LOC: ANHLAB 15:40
PROVIDERS: PCP Emergency Medicine; Visit Provider Internal Medicine
DX: E04.9 Nontoxic goiter, unspecified (principal); R63.5 Abnormal weight gain
CPT/HCPCS: 82530

== ENCOUNTER 2024-01-06 17:18 | Emergency (ER) | payer OTHER, SELFPAY ==
--- NOTE | 2024-01-06 17:23 | ED.URI ---
HPI - URI/Sore Throat General Chief Complaint: Fever Stated Complaint: FEVER/BODY ACHES/COUGH/HEADACHE/DIARRHEA/DIZZY Time Seen by Provider: 01/06/24 17:27 Source: patient and RN notes reviewed Mode of arrival: ambulatory Limitations: no limitations History of Present Illness HPI Narrative: 48-year-old female presented for complaint of headache, body aches, dizziness, sinus pressure/congestion, cough, fever/chills. Onset this morning. States symptoms have progressed quickly today. Endorses waking with fever up to 101, took a dose of Motrin this morning. Denies sob, wheezing, n/v. MD elicited complaint: cough Related Data Home Medications Medication Instructions Recorded Confirmed albuterol sulfate 90 mcg/actuation 1 puff inhalation Q4H PRN 12/18/23 aerosol inhaler budesonide-formoterol HFA 80 1 inh inhalation TID PRN 12/18/23 mcg-4.5 mcg/actuation aerosol inhaler cyclobenzaprine 10 mg tablet 10 mg PO TID PRN 12/18/23 famotidine 20 mg tablet 20 mg PO DAILY PRN 12/18/23 fluticasone furoate 50 1 inh inhalation PRN 12/18/23 mcg/actuation blister powder for inhalation Allergies Allergy/AdvReac Type Severity Reaction Status Date / Time ibuprofen AdvReac Abdominal Verified 12/18/23 11:21 Pain Review of Systems Review of Systems: CONSTITUTIONAL: Endorses malaise, chills, sweats, fever EYES: Denies visual changes, redness, or discharge ENT: Reports rhinorrhea, congestion, sinus pain, otalgia, sore throat CARDIOVASCULAR: Denies chest pain, palpitations, edema RESPIRATORY: Reports cough, post nasal drainage. Denies dyspnea GASTROINTESTINAL: Denies abdominal pain, nausea, vomiting, diarrhea SKIN: Denies rash or itching MUSCULOSKELETAL: Endorses myalgia PMFSH Past Medical History Medical History Bronchitis Chicken pox Chills Hives Itching Miscarriage Pneumonia Trigger finger (~2011) Surgical History Surgical History History of endometrial ablation (~2017) History of tubal ligation (~1998) Family History Family History Father No known problems Mother No known problems Sibling Suicide Social History Social History Social History: Patient drinks caffeine twice weekly. Smoking status: Never smoker Second hand tobacco smoke exposure: No Alcohol intake: current Alcohol use details: Patient drinks 2 to 3 glasses of alcohol per month Substance use: never Substance use type: does not use Lack of Transportation: No Lack of Food: Never True Current Housing: I Have Housing Concerned About Future Housing: No Difficulty Paying Gas/Electric Bills: No Difficulty Paying for Meds: No Currently Unemployed: Decline to Answer Education: Associate Degree Difficulty w/ Childcare or Family Care: No Living arrangements: alone Additional living arrangements comments: Patient is Occupation/Education: occupation 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 TMs pearly [place] with dull light reflex bilaterally; no tragal tenderness. Oropharynx not erythematous without lesions or exudate, no drooling, no hoarseness, no trismus, uvula midline. CHEST: Clear to auscultation, breath sounds equal. No wheezing, rhonchi, rales, or stridor. No respiratory distress, speaks in full sentences. HEART: Regular rate and rhythm. SKIN: Warm, dry NEURO: Alert and oriented x3. PSYCH: Normal mood and affect Course Course Emergency Course: Patient is aware of diagnosis, understands and agrees to treatment plan. Anticipatory guidance given. Patient agrees to follow-up as directed and is aware of reasons to seek care at the emergenc
[2024-01-06 17:26] VITALS: BP 143/106; PULSE 127; RESP 20; TEMP 38.1; O2SAT 100
[2024-01-06 17:40] VITALS: TEMP 39.4
[2024-01-06 17:53] VITALS: TEMP 39.4
[2024-01-06] MEDS: ACETAMINOPHEN 500 MG TABLET 1000 MG PO (17:53)
== END 2024-01-06 17:48 | disposition home or self-care (01) ==
PROVIDERS: Emergency Provider Nurse Practitioner Family; PCP Emergency Medicine
DX: U07.1 COVID-19 (principal)
CPT/HCPCS: 87426; 87804; 99213; A9270; G0463

== ENCOUNTER 2024-03-10 11:47 | Emergency (ER) | payer OTHER, SELFPAY ==
[2024-03-10 12:03] VITALS: BP 133/94; PULSE 83; RESP 16; TEMP 36.3; O2SAT 99
--- NOTE | 2024-03-10 12:06 | ED.EAR ---
HPI - Ear Problem General Chief complaint: Ear Stated complaint: EARS ITCHING Time Seen by Provider: 03/10/24 12:06 Source: patient, RN notes reviewed and old records reviewed Mode of arrival: ambulatory Limitations: no limitations History of Present Illness HPI Narrative: 48 year old female who presents to [facility] care with complaints of ears itching the right greater than the left.Patient reported that her symptoms started last Friday after vacationing in [place]. Patient has not taken any OTC medications for her symptoms. Patient has numerous medication allergies and environmental allergies has had extensive allergy testing done does have inhaler that she uses daily and has rescue inhaler. MD Complaint: other (itchy ears right greater than left) Location: bilateral Duration: intermittent Severity: moderate Discharge from ear: Reports no Treatment prior to arrival: none Related Data Home Medications Medication Instructions Recorded Confirmed albuterol sulfate 90 mcg/actuation 1 puff inhalation Q4H PRN Allergic 12/18/23 03/10/24 aerosol inhaler Symptoms budesonide-formoterol HFA 80 1 inh inhalation TID PRN Allergic 12/18/23 03/10/24 mcg-4.5 mcg/actuation aerosol Symptoms inhaler cyclobenzaprine 10 mg tablet 10 mg PO TID PRN Muscle Spasm 12/18/23 03/10/24 famotidine 20 mg tablet 20 mg PO DAILY PRN Allergic 12/18/23 03/10/24 Symptoms fluticasone furoate 50 1 inh inhalation DAILY PRN 12/18/23 03/10/24 mcg/actuation blister powder for Allergic Reaction inhalation Allergies Allergy/AdvReac Type Severity Reaction Status Date / Time benzalkonium chloride Allergy Unknown Verified 03/10/24 12:09 cocamidopropyl betaine Allergy Unknown Verified 03/10/24 12:09 paraben Allergy Unknown Verified 03/10/24 12:09 propolis (bee glue) Allergy Unknown Verified 03/10/24 12:09 propyl gallate Allergy Unknown Verified 03/10/24 12:09 vitamin E (d-alpha Allergy Unknown Verified 03/10/24 12:09 tocopherol) ibuprofen AdvReac Abdominal Verified 12/18/23 11:21 Pain amidoamine Allergy Unknown Uncoded 03/10/24 12:09 cinnamic aldelhyde Allergy Unknown Uncoded 03/10/24 12:09 dodecyl gallate Allergy Unknown Uncoded 03/10/24 12:09 fragrance mix Allergy Unknown Uncoded 03/10/24 12:09 methyldibromo glutaronitrite Allergy Unknown Uncoded 03/10/24 12:09 neomycin sulfate Allergy Unknown Uncoded 03/10/24 12:09 octyl gallate Allergy Unknown Uncoded 03/10/24 12:09 oleamidopropyl dimethylamine Allergy Unknown Uncoded 03/10/24 12:09 shellac Allergy Unknown Uncoded 03/10/24 12:09 tert-butylhydroquinone Allergy Unknown Uncoded 03/10/24 12:09 Review of Systems Review of Systems: CONSTITUTIONAL: Denies malaise, chills, sweats, or fever. EYES: Denies visual changes, redness, or discharge. ENT: Reports no rhinorrhea, congestion, sinus pain,reports bilateral ears itching and no sore throat. CARDIOVASCULAR: Denies chest pain, palpitations, or edema. RESPIRATORY: Reports no cough.? Denies dyspnea. GASTROINTESTINAL: Denies abdominal pain, nausea, vomiting, diarrhea SKIN: Denies rash or itching. MUSCULOSKELETAL: Denies myalgia. NEUROLOGIC: Denies headache. All systems reviewed & are unremarkable except as noted in HPI and below PMFSH Past Medical History Medical History Bronchitis Chicken pox Chills Hives Itching Miscarriage Pneumonia Trigger finger (~2011) Surgical History Surgical History History of endometrial ablation (~2017) History of tubal ligation (~1998) Family History Family History Father No known problems Mother No known problems Sibling Suicide Social History Social History Social History: Patient drinks caffeine twice weekly. Smoking status: Never smoker [place]
[2024-03-10 12:09] VITALS: BP 133/94; PULSE 83; RESP 16; TEMP 36.3; O2SAT 99
== END 2024-03-10 12:28 | disposition home or self-care (01) ==
PROVIDERS: Emergency Provider Registered Nurse; PCP Emergency Medicine
DX: H60.91 Unspecified otitis externa, right ear (principal)
CPT/HCPCS: 99213; G0463

== ENCOUNTER 2024-06-21 14:23 | Emergency (ER) | payer OTHER, SELFPAY ==
--- NOTE | 2024-06-21 14:25 | ED.URI ---
HPI - URI/Sore Throat General Chief Complaint: Upper Respiratory Infection Stated Complaint: Flu Symptoms Time Seen by Provider: 06/21/24 14:25 Source: patient Mode of arrival: ambulatory Limitations: no limitations History of Present Illness HPI Narrative: Rogelio is a 48-year-old female patient presenting to the clinic today with complaints of possibly feeling ill. She reports that she is starting to feel sick. Her symptoms started yesterday with a slight sore throat and some body aches. Denies any chest pain or shortness of breath. Does have some slight nasal congestion. No known fever or chills. MD elicited complaint: sore throat and nasal congestion Related Data Home Medications Medication Instructions Recorded Confirmed albuterol sulfate 90 mcg/actuation 1 puff inhalation Q4H PRN Allergic 12/18/23 03/10/24 aerosol inhaler Symptoms budesonide-formoterol HFA 80 1 inh inhalation TID PRN Allergic 12/18/23 03/10/24 mcg-4.5 mcg/actuation aerosol Symptoms inhaler cyclobenzaprine 10 mg tablet 10 mg PO TID PRN Muscle Spasm 12/18/23 03/10/24 famotidine 20 mg tablet 20 mg PO DAILY PRN Allergic 12/18/23 03/10/24 Symptoms fluticasone furoate 50 1 inh inhalation DAILY PRN 12/18/23 03/10/24 mcg/actuation blister powder for Allergic Reaction inhalation Allergies Allergy/AdvReac Type Severity Reaction Status Date / Time benzalkonium chloride Allergy Unknown Verified 03/10/24 12:09 cocamidopropyl betaine Allergy Unknown Verified 03/10/24 12:09 paraben Allergy Unknown Verified 03/10/24 12:09 propolis (bee glue) Allergy Unknown Verified 03/10/24 12:09 propyl gallate Allergy Unknown Verified 03/10/24 12:09 vitamin E (d-alpha Allergy Unknown Verified 03/10/24 12:09 tocopherol) ibuprofen AdvReac Abdominal Verified 12/18/23 11:21 Pain amidoamine Allergy Unknown Uncoded 03/10/24 12:09 cinnamic aldelhyde Allergy Unknown Uncoded 03/10/24 12:09 dodecyl gallate Allergy Unknown Uncoded 03/10/24 12:09 fragrance mix Allergy Unknown Uncoded 03/10/24 12:09 methyldibromo glutaronitrite Allergy Unknown Uncoded 03/10/24 12:09 neomycin sulfate Allergy Unknown Uncoded 03/10/24 12:09 octyl gallate Allergy Unknown Uncoded 03/10/24 12:09 oleamidopropyl dimethylamine Allergy Unknown Uncoded 03/10/24 12:09 shellac Allergy Unknown Uncoded 03/10/24 12:09 tert-butylhydroquinone Allergy Unknown Uncoded 03/10/24 12:09 Review of Systems Review of Systems: Pertinent positives per HPI. Patient denies any fever, chills, rash, headache, visual changes, dizziness, shortness of breath, chest pain, palpitations, nausea, vomiting, diarrhea, constipation, abdominal pain, or any urinary issues. PMFSH Past Medical History Medical History Bronchitis Chicken pox Chills Hives Itching Miscarriage Pneumonia Trigger finger (~2011) Surgical History Surgical History History of endometrial ablation (~2017) History of tubal ligation (~1998) Family History Family History Father No known problems Mother No known problems Sibling Suicide Social History Social History Social History: Patient drinks caffeine twice weekly. Smoking status: Never smoker Second hand tobacco smoke exposure: No Alcohol intake: current Alcohol use details: Patient drinks 2 to 3 glasses of alcohol per month Substance use: never Substance use type: does not use Lack of Transportation: No Lack of Food: Never True Current Housing: I Have Housing Concerned About Future Housing: No Difficulty Paying Gas/Electric Bills: No Difficulty Paying for Meds: No Currently Unemployed: Decline to Answer Education: Associate Degree Difficulty w/ Childcare or Family Care: No Living arrangements: alone Additional living arrangements comments: Patient is Occupation/Education: occupation 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 There is no relevant family history pertinent to the patient complaint. Exam Narrative: General: Well-developed, well nourished, in no apparent distress Head: Normocephalic, atraumatic Eyes: Pupils equally round and reactive to light bilaterally, EOM intact, sclera and conjunctive clear, no discharge, lids normal Ears: TMs intact and clear, ear canals clear, no drainage, grossly hearing normal. Nose: Nares patent, clear nasal discharge, no inflammation, no sinus tenderness. Mouth: Oral pharynx without lesions or masses, good dentition, MMM. Neck: Supple, trachea midline, no enlargement of anterior or posterior cervical nodes, no thyroid masses or goiter palpable. Cardio: Regular rate and rhythm, s1 and s2 normal, no murmur appreciated. Resp: Clear to auscultation bilaterally, no rhonchi, rales, wheezing or rubs Course Course Emergency Course: Portions of this record may have been created with voice recognition software. Level of Care: Express Care Visit Vital Signs Vital signs: Vital Signs Temperature 36.1 C L 06/21/24 14:51 Pulse Rate 116 H 06/21/24 14:51 Respiratory Rate 15 06/21/24 14:51 Blood Pressure 131/94 H 06/21/24 14:51 Pulse Oximetry 99 06/21/24 14:51 Oxygen Delivery Room Air 06/21/24 14:51 Temperature 36.1 C L 06/21/24 14:51 Pulse Rate 116 H 06/21/24 14:51 Respiratory Rate 15 06/21/24 14:51 Blood Pressure 131/94 H 06/21/24 14:51 Pulse Oximetry 99 06/21/24 14:51 Oxygen Delivery Room Air 06/21/24 14:51 Vital signs reviewed MDM - URI/Sore Throat MDM Narrative Medical decision making narrative: At the time of visit patient is resting comfortably on the exam table. Patient appears to be nontoxic. Labs: COVID, influenza, and strep test were all negative in the clinic today. We will send strep for culture Plan: I suspect patient has URI/pharyngitis. Supportive measures were discussed with the patient and they voiced understanding discharge instructions and agrees to treatment plan. Return precautions reviewed Differential Diagnosis Differential diagnosis: Likely upper respiratory infection, otitis media, sinusitis, viral infection, bronchitis, influenza, pharyngitis and other (COVID) Lab Data Labs: Lab Results 06/21/24 Range/Units 14:45 POC Influenza A Ag Negative (Negative) POC Influenza B Ag Negative (Negative) POC SARS CoV-2 Ag Negative (Negative) POC Grp A Strep Screen Negative (Negative) Discharge Plan Discharge Clinical Impression: URI (upper respiratory infection) Qualifiers: URI type: unspecified URI Qualified Code(s): J06.9 - Acute upper respiratory infection, unspecified Pharyngitis Qualifiers: Pharyngitis/tonsillitis etiology: unspecified etiology Qualified Code(s): J02.9 - Acute pharyngitis, unspecified Patient Disposition: Home, Self-Care Condition: Stable Instructions: Antibiotic Form, Pharyngitis (ED), Cold Symptoms (ED) Additional Instructions: COVID, influenza, and strep test were all negative in the clinic today. We will send strep culture. Increase fluids and stay well hydrated Tylenol/motrin for pain/fever Flonase and OTC antihistamines as directed Vicks vapor rub to open sinuses Sinus rinses for congestion Cepacol spray, cough drops, throat lozenges, warm tea with honey/lemon, gargle salt water to soothe throat BRAT diet for diarrhea Clear liquids x 24 hours then advance as tolerated for nausea/vomiting Go to the ED if you develop a worsening in your condition- high fever not controlled by Tylenol or Motrin, dehydration, weakness, lethargy, shortness of breath, or chest pain. Follow up with your PCP in 3-5 days if symptoms persist. Prescriptions: No Action Paxlovid 300 mg (150 mg x 2)-100 mg tablets,dose pack See Rx Instructions .ROUTE .COMPLEX Qty: 30 0RF Rx Instructions: take TWO 150 mg tablets of nirmatrelvir with ONE 100 mg tablet of ritonavir twice daily for 5 days [id number] 3.5-10,000-1 mg/mL-unit/mL-% drops,suspension 4 drp RIGHT EAR Q8H 7 Days Qty: 10 0RF albuterol sulfate 90 mcg/actuation HFA aerosol inhaler 1 puff inhalation Q4H PRN (Reason: Allergic Symptoms) cyclobenzaprine 10 mg tablet 10 mg PO TID PRN (Reason: Muscle Spasm) fluticasone furoate 50 mcg/actuation blister with device 1 inh inhalation DAILY PRN (Reason: Allergic Reaction) budesonide-formoterol 80-4.5 mcg/actuation HFA aerosol inhaler 1 inh inhalation TID PRN (Reason: Allergic Symptoms) famotidine 20 mg tablet 20 mg PO DAILY PRN (Reason: Allergic Symptoms) Follow-up/Referrals: Francois Carlson MD [Primary Care Provider] - Time of Disposition: 15:22 Quality NIHSS Nursing Documentation ED NIHSS nursing documentation: reviewed/agree
[2024-06-21 14:51] VITALS: BP 131/94; PULSE 116; RESP 15; TEMP 36.1; O2SAT 99
[2024-06-21 15:07] LABS: EDCOVIDSCREEN Negative (Negative)
[2024-06-21 15:09] LABS: EDINFLUASCREEN Negative (Negative); EDINFLUBSCREEN Negative (Negative); EDSTREPNEGPOS1 Negative (Negative)
== END 2024-06-21 15:24 | disposition home or self-care (01) ==
PROVIDERS: Emergency Provider Nurse Practitioner Family; PCP Emergency Medicine
DX: J06.9 Acute upper respiratory infection, unspecified (principal); J02.9 Acute pharyngitis, unspecified; Z20.822 Contact with and (suspected) exposure to COVID-19
CPT/HCPCS: 87081; 87426; 87804; 87880; 99213; G0463

== ENCOUNTER 2024-09-01 11:26 | Emergency (ER) | payer OTHER, SELFPAY ==
[2024-09-01 11:37] VITALS: BP 124/93; PULSE 88; RESP 16; TEMP 36.5; O2SAT 98
--- NOTE | 2024-09-01 11:45 | ED_ITS ---
HPI - Skin/Abscess/Foreign Bdy General Chief complaint: Skin/Abscess/Foreign Body Stated complaint: ABSCESS Time Seen by Provider: 09/01/24 11:45 Source: patient Mode of arrival: ambulatory Limitations: no limitations History of Present Illness HPI narrative: [age] year female presents complaint pain, swelling to tailbone area. Pain started yesterday. History shingles and pilonidal cyst. Afebrile. All Systems reviewed and negative except as noted above. Related Data Home Medications ?Medication ?Instructions ?Recorded ?Confirmed ?Last Taken ?Type albuterol sulfate 90 mcg/actuation 1 puff inhalation Q4H PRN Allergic 12/18/23 03/10/24 Unknown History aerosol inhaler Symptoms budesonide-formoterol HFA 80 1 inh inhalation TID PRN Allergic 12/18/23 03/10/24 Unknown History mcg-4.5 mcg/actuation aerosol Symptoms inhaler cyclobenzaprine 10 mg tablet 10 mg PO TID PRN Muscle Spasm 12/18/23 03/10/24 Unknown History famotidine 20 mg tablet 20 mg PO DAILY PRN Allergic 12/18/23 03/10/24 Unknown History Symptoms fluticasone furoate 50 1 inh inhalation DAILY PRN 12/18/23 03/10/24 Unknown History mcg/actuation blister powder for Allergic Reaction inhalation cetirizine 10 mg tablet (Zyrtec) 10 mg PO DAILY PRN 06/22/24 Unknown History Allergies Allergy/AdvReac Type Severity Reaction Status Date / Time benzalkonium chloride Allergy Unknown Verified 09/01/24 11:55 cocamidopropyl betaine Allergy Unknown Verified 09/01/24 11:55 paraben Allergy Unknown Verified 09/01/24 11:55 propolis (bee glue) Allergy Unknown Verified 09/01/24 11:55 propyl gallate Allergy Unknown Verified 09/01/24 11:55 vitamin E (d-alpha Allergy Unknown Verified 09/01/24 11:55 tocopherol) ibuprofen AdvReac Abdominal Verified 09/01/24 11:55 Pain amidoamine Allergy Unknown Uncoded 09/01/24 11:55 cinnamic aldelhyde Allergy Unknown Uncoded 09/01/24 11:55 dodecyl gallate Allergy Unknown Uncoded 09/01/24 11:55 fragrance mix Allergy Unknown Uncoded 09/01/24 11:55 methyldibromo glutaronitrite Allergy Unknown Uncoded 09/01/24 11:55 neomycin sulfate Allergy Unknown Uncoded 09/01/24 11:55 octyl gallate Allergy Unknown Uncoded 09/01/24 11:55 oleamidopropyl dimethylamine Allergy Unknown Uncoded 09/01/24 11:55 shellac Allergy Unknown Uncoded 09/01/24 11:55 tert-butylhydroquinone Allergy Unknown Uncoded 09/01/24 11:55 Review of Systems Review of Systems: CONSTITUTIONAL: Denies fever, chills, or sweats. EYES: Denies visual changes, redness, or discharge. ENT: Denies rhinorrhea, congestion, sore throat, or otalgia. CARDIOVASCULAR: Denies chest pain, palpitations, or edema. RESPIRATORY: Denies cough or dyspnea. GASTROINTESTINAL: Denies abdominal pain, nausea, vomiting, or diarrhea. GENITOURINARY: Denies dysuria or hematuria. SKIN: Denies rash or itching. Reports pain and swelling to tail area. MUSCULOSKELETAL: Denies back pain, joint pain, or myalgia. NEUROLOGIC: Denies headache, numbness, or weakness. PSYCHIATRIC: Denies anxiety or depression. All other systems reviewed are negative, except as documented in HPI. [facility] Past Medical History Medical History (Updated 09/01/24 @ 11:52 by Saskia Cordero NP) Trigger finger (~2011) Itching Hives Chills Bronchitis Pneumonia Miscarriage Chicken pox Surgical History Surgical History History of tubal ligation (~1998) History of endometrial ablation (~2017) Family History Family History Father No known problems Mother No known problems Sibling Suicide Social History Social History Social History: Patient drinks caffeine twice weekly. Smoking status: Never smoker Second hand tobacco smoke exposure: No Alcohol intake: current Alcohol use details: Patient drinks 2 to 3 glasses of alcohol per month Substance use: never Substance use type: does not use Lack of Transportation: No Lack of Food: Never True Current Housing: I Have Housing Concerned About Future Housing: No Difficulty Paying Gas/Electric Bills: No Difficulty Paying for Meds: No Currently Unemployed: Decline to Answer Education: Associate Degree Difficulty w/ Childcare or Family Care: No Living arrangements: alone Additional living arrangements comments: Patient is Occupation/Education: occupation 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 There is no relevant family history pertinent to the presenting complaint. Exam Narrative: GENERAL: This is a well-nourished, well-developed patient, in no apparent distress. HEAD: normocephalic, atraumatic. EYES: PERRL. Sclera clear/white. Vision is grossly intact. EARS: External ears normal NOSE: External nose normal NECK: Neck supple, non-tender without lymphadenopathy, masses or thyromegaly. CARDIOVASCULAR: Regular rate and rhythm without murmurs, gallops, or rubs. RESPIRATORY: Clear to auscultation. Breath sounds equal bilaterally. No wheezes, rales, or rhonchi. SKIN: warm, Dry, intact with , good texture and turgor. Erythematous vesicles to left side upper buttock area. Tender palpation. No fluctuance drainage significant swelling concerning for abscess. NEURO: awake, alert, and oriented to person, place and time. There were no obvious focal neurologic abnormalities. EXTREMITIES: No joint tenderness, effusion, or edema noted. Course Course Level of Care: Express Care Visit Vital Signs Vital signs: Vital Signs Temperature 36.5 C 09/01/24 11:37 Pulse Rate 88 09/01/24 11:37 Respiratory Rate 16 09/01/24 11:37 Blood Pressure 124/93 H 09/01/24 11:37 Pulse Oximetry 98 09/01/24 11:37 Temperature 36.5 C 09/01/24 11:37 Pulse Rate 88 09/01/24 11:37 Respiratory Rate 16 09/01/24 11:37 Blood Pressure 124/93 H 09/01/24 11:37 Pulse Oximetry 98 09/01/24 11:37 Reviewed MDM - Skin/Abscess/Foreign Bdy MDM Narrative Medical decision making narrative: Will treat patient with antiviral for shingles to left buttock. Patient is well-appearing, nontoxic. Recommend primary care physician as needed. Please be advised this is a medical document. It is intended for [id number] communication. It is written in medical language and may contain unfamiliar abbreviations or verbiage. Medical documents are intended to carry relevant information, facts as evident, and the clinical opinion of the practitioner at the time of the encounter. This report may have been done utilizing a voice recognition system. Attempts have been made to correct errors. However, there may be uncorrected grammatical, spelling, and recognition errors present. The file time of this note does not necessarily represent the time of service. Differential Diagnosis Differential diagnosis: Likely abscess of skin or subcutaneous tissue, viral exanthem, urticaria, herpes zoster, cellulitis and insect bites Discharge Plan Discharge Clinical Impression: Shingles Qualifiers: Herpes zoster complications: without complications Qualified Code(s): B02.9 - Zoster without complications Patient Disposition: Home, Self-Care Condition: Stable Instructions: Shingles (ED) Additional Instructions: Take medications as prescribed. Take Tylenol every 6-8 hours as needed for pain. Apply lidocaine ointment to shingles rash every 4-6 hours as needed for pain. Follow-up with your primary care physician if symptoms not improving. Patient Language: Slovenian Prescriptions: New valacyclovir 1 gram tablet 1,000 mg PO TID 7 Days Qty: 21 0RF methylprednisolone [Medrol (Joel)] 4 mg tablets,dose pack See Rx Instructions PO .COMPLEX Qty: 21 0RF Rx Instructions: orally per package directions lidocaine 5 % ointment 1 applic topical Q4-6H PRN (Reason: pain) Qty: 30 0RF No Action Paxlovid 300 mg (150 mg x 2)-100 mg tablets,dose pack See Rx Instructions .ROUTE .COMPLEX Qty: 30 0RF Rx Instructions: take TWO 150 mg tablets of nirmatrelvir with ONE 100 mg tablet of ritonavir twice daily for 5 days [id number]-VG 3.5-10,000-1 mg/mL-unit/mL-% drops,suspension 4 drp RIGHT EAR Q8H 7 Days Qty: 10 0RF albuterol sulfate 90 mcg/actuation HFA aerosol inhaler 1 puff inhalation Q4H PRN (Reason: Allergic Symptoms) cyclobenzaprine 10 mg tablet 10 mg PO TID PRN (Reason: Muscle Spasm) fluticasone furoate 50 mcg/actuation blister with device 1 inh inhalation DAILY PRN (Reason: Allergic Reaction) budesonide-formoterol 80-4.5 mcg/actuation HFA aerosol inhaler 1 inh inhalation TID PRN (Reason: Allergic Symptoms) famotidine 20 mg tablet 20 mg PO DAILY PRN (Reason: Allergic Symptoms) cetirizine [Zyrtec] 10 mg tablet 10 mg PO DAILY PRN mecobalamin (vitamin B12) 2,500 mcg tablet,chewable 2,500 mcg PO DAILY Qty: 90 4RF cholecalciferol (vitamin D3) 50 mcg (2,000 unit) capsule 50 mcg PO DAILY Qty: 180 4RF Follow-up/Referrals: Francois Carlson MD [Primary Care Provider] - Time of Disposition: 11:52
== END 2024-09-01 11:59 | disposition home or self-care (01) ==
PROVIDERS: Emergency Provider Nurse Practitioner Family; PCP Emergency Medicine
DX: B02.9 Zoster without complications (principal)
CPT/HCPCS: 99213; G0463

== ENCOUNTER 2024-09-13 10:41 | Outpatient (CLI) | payer OTHER, SELFPAY ==
[2024-09-13 11:46] LABS: Alanine Aminotransferase 35 U/L (6-35); Albumin Level 4.1 g/dL (3.5-5.1); Alkaline Phosphatase 78 U/L (38-126); Anion Gap 7 mmol/L (4-12); Aspartate Amino Transferase 30 U/L (14-36); Bilirubin,Total 0.3 mg/dL (0.2-1.3); Blood Urea Nitrogen 15 mg/dL (7-17); Calcium 8.9 mg/dL (8.4-10.2); Carbon Dioxide 28 mmol/L (22-30); Chloride 106 mmol/L (98-107); Cholesterol 240 mg/dL (0-200); Estimated Glomerular Filt Rate > 60; Glucose 91 mg/dL (65-110); HDL Direct 68 mg/dL; Potassium 4.3 mmol/L (3.4-5.0); Sodium 141 mmol/L (137-145); Triglycerides 66 mg/dL (<150)
[2024-09-13 11:57] LABS: LDL Cholesterol Direct 124 mg/dL
[2024-09-13 12:20] LABS: Vitamin D 25 Hydroxy 20.6 ng/mL
== END 2024-09-13 10:42 | disposition home or self-care (01) ==
PROVIDERS: PCP Emergency Medicine; Visit Provider Emergency Medicine
DX: E78.5 Hyperlipidemia, unspecified (principal); E55.9 Vitamin D deficiency, unspecified
CPT/HCPCS: 36415; 80053; 80061; 82306

== ENCOUNTER 2024-11-17 07:48 | Outpatient (CLI) | payer OTHER, SELFPAY ==
--- OUTSIDE RECORDS SUMMARY | 2024-11-17 07:54 | XMS_ITS | Encounter Summary ---
Author Organization [facility] Address [address] [place] [address] Care Team Providers Care K9 Handler Name Role Phone Francois Carlson MD Primary Care Provider [phone] Reason for Visit * Reason Onset Date Comments Future Appointment 02/13/2024 Encounter Details Date Type Department Care Team (Late st Contact Info) Description 02/13/2024 Telephone [facility] - Centralized Scheduling [address] [place] [id number] Dionte Paez MD [address] OF [facility]ER[place] [address] Future Appointment Social History Tobacco Use Types Packs/Day Years Used Date Smoking Tobacco: Never Passive Smoke Exposure: Never Smokeless Tobacco: Never Alcohol Use Standard Drinks/Week Comments Never 0 (1 standard drink = 0.6 oz pur e alcohol) PHQ-2 Answer Date Recorded Patient Health Questionnaire-2 Score 0 08/18/2023 Comments Unknown Sex and Gender Information Value Date Recorded Sex Assigned at Not on file 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
--- OUTSIDE RECORDS SUMMARY | 2024-11-17 07:54 | XMS_ITS | Clinical Summary ---
Author Organization [facility] [address] Address [address] [place] [id number] Care Team Providers Care Pmo Analyst Name Role Phone Mauricio Hernandez MD Primary Care Provider Allergies Active Allergy Reactions Criticality Noted Date Comments Ibuprofen Other (See Comments) High 08/18/2023 Stomach burning and irritation Mumvdnlu-Cllnajcvlr-T olymyxin Unknown Low 03/23/2024 Medications albuterol sulfate HFA 90 mcg/actuation aerosol inhaler Take 2 Puffs by inhalation. 3 Active betamethasone valerate (VALISONE) 0.1 % Cream Apply to affected area 2 times daily. 4 Active budesonide-form oteroL (SYMBICORT) 80-4.5 mcg/actuation HFA Aerosol Inhaler Take 2 Puffs by inhalation 2 times daily. 4 Active clotrimazole (LOTRIMIN) 1 % Cream Apply to affected area 2 times daily. 4 Active clotrimazole-be tamethasone (LOTRISONE) 1-0.05 % Cream Apply to affected area 2 times daily. 4 Active cyclobenzaprine (FLEXERIL) 10 mg tablet Take 10 mg by mouth. 4 Active fluticasone propionate (FLONASE) 50 mcg/spray [place], Suspension nasal inhaler Administer 2 Sprays in each nostril daily. 4 Active mometasone (ELOCON) 0.1 % Ointment Apply to affected area on arms and fingers BID. 30 day supply. 4 Active triamcinolone acetonide (KENALOG) 0.1 % Ointment Apply to affected area on feet BID. 30 day supply 4 Active valACYclovir (VALTREX) 1 gram tablet Take 1 tab PO at first sign of outbreak, repeat in 12 hrs for total 2 doses 5 Active lidocaine (XYLOCAINE) 5 % Ointment 5 Active methylPREDNISol one (MEDROL DOSPACK) 4 mg Tablets, Dose Pack 5 Active ondansetron (ZOFRAN ODT) 4 mg Tablet, Rapid Dissolve DISSOLVE 1 TABLET IN MOUTH EVERY 6 HOURS NEEDED FOR NAUSEA AND VOMITING 5 Active Active Problems Problem Noted Date Diagnosed Date Carpal tunnel syndrome on both sides 11/08/2024 Pancreatic cyst 11/08/2024 Contact dermatitis Migraine HSV infection Encounters Date Type Department Care Team Description 11/09/2024 External Device Data [facility] Provider, Abstract 11/09/2024 External Device Data [facility] Provider, Abstract 11/09/2024 External Device Data [facility] Provider, Abstract 11/08/2024 9:40 AM CDT Office Visit [facility] Internal Medicine - [address] [phone] Mauricio Hernandez MD Encounter for routine adult health examination without abnormal findings (Primary Dx); Encounter for colorectal cancer screening; Screening mammogram, encounter for; Declined influenza vaccine; Allergic dermatitis due to other chemical product; Hoarseness; Globus sensation; Migraine without aura and without status migrainosus, not intractable; HSV infection; Carpal tunnel syndrome on both sides; Screening for cardiovascular condition; Screening for diabetes mellitus; Pain of muscle of abdomen; Obesity (BMI 30.0-34.9); Blurry vision; Pancreatic cyst from Last 3 Months Immunizations Immunization Administration Dates Next Due (ADACEL/BOOSTRIX)(10 YR UP) TDAP VACCINE, 0.5ML, IM 05/29/2017 Family History Medical History Relation Name Comments Hypertension Brother Hypertension Father Lung Cancer Maternal Grandfather asbesto s related COPD Maternal Grandmother Depression Maternal Grandmother Depression Mother Hypertension Mother Cancer - Other Paternal Grandfather Diabetes Paternal Grandfather Hypertension Sister Relation Name Status Comments Brother Father Maternal Grandfather Maternal Grandmother Mother Paternal Grandfather Sister Social History Tobacco Use Types Packs/Day Years Used Date Smoking Tobacco: Never Smokeless Tobacco: Never Tobacco Cessation:Counseling Given: Not Answered Alcohol Use Standard Drinks/Week Comments Yes 0 (1 standard drink = 0.6 oz pur e alcohol) once every 6 months Comments Unknown Sex and Gender Information Value Date Recorded Sex Assigned at Not on file 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 Gender Identity Not on file Sexual Orientation Not on file Last Filed Vital Signs Vital Sign Reading Time Taken Comments Blood Pressure 122/76 11/08/2024 9:43 AM CDT Pulse 80 11/08/2024 9:43 AM CDT Temperature 36.2 C (97.2 F) 11/08/2024 9:43 AM CDT Respiratory Rate 18 11/08/2024 9:43 AM CDT Oxygen Saturation 97% 11/08/2024 9:43 AM CDT Inhaled Oxygen Concentration - - Weight 85.3 kg (188 lb) 11/08/2024 9:43 AM CDT Height 157.5 cm (5' 2 ) 11/08/2024 9:43 AM CDT Body Mass Index 34.39 11/08/2024 9:43 AM CDT Plan of Treatment Upcoming Encounters Date Type Department Care Team (Late st Contact Info) Description 11/14/2025 9:00 AM CDT Office Visit [facility] Internal Medicine - [address] [phone] Mauricio Hernandez MD [address] [place] [phone] Health Maintenance Due Date Last Done Comments Pre-Diabetes and Diabetes Screening 1977 Preventative Visit-Managed Medicaid 1996 HPV/Cotest (21-29) 1998 CERVICAL CANCER SCREENING 11/14/2007 HPV/Cotest (30-65) 11/14/2007 PAP SMEAR 11/14/2007 BREAST CANCER SCREENING 2017 COLORECTAL SCREENING 2022 Colorectal Cancer Screening 2022 FIT-DNA Q 3 years 2022 FIT/FOBT Q 1 year 2022 Flex Sig/CT Colonography Q 5 years 2022 DTAP/TDAP/TD VACCINES (2 - T d or Tdap) 05/29/2027 05/29/2017 INFLUENZA VACCINE Completed 11/08/2024 HPV VACCINES Aged Out No longer eligi ble based on patient's age to complete this topic Insurance [employer] [place] Care Teams Pmo Analyst Relationship Specialty Start Date End Date Mauricio Hernandez MD [address] [place] [phone] PCP - General Internal Medicine 11/08/24
--- OUTSIDE RECORDS SUMMARY | 2024-11-17 07:54 | XMS_ITS | Encounter Summary ---
Author Organization [facility] Address [address] [place] [address] Care Team Providers Care Slitter Cut Off Operator Name Role Phone Francois Carlson MD Primary Care Provider + [phone] Encounter Details Date Type Department Care Team (Late st Contact Info) Description 09/18/2023 Telephone [facility] - Allergy [address] [place] [phone] Mere Pond MD [address] [place] [address] Social History Tobacco Use Types Packs/Day Years Used Date Smoking Tobacco: Never Smokeless Tobacco: Never PHQ-2 Answer Date Recorded Patient Health Questionnaire-2 Score 0 08/18/2023 Comments Unknown Sex and Gender Information Value Date Recorded Sex Assigned at Not on file Legal 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 Environmental allergens: Negative for cockroach, mold, dog, cat, mouse, trees, grass, ragweed, and other weeds. Total IgE: 174 Mere Pond MD Allergy & Immunology Fellow COT PACKER documented in this encounter Plan of Treatment Not on file documented as of this encounter Visit Diagnoses Not on filedocumented in this encounter Care Teams Slitter Cut Off Operator Relationship Specialty Start Date End Date Francois Carlson MD [address] [address] PCP - General Internal Medicine 08/18/23 documented as of this encounter
--- OUTSIDE RECORDS SUMMARY | 2024-11-17 07:54 | XMS_ITS | Continuity of Care Document ---
Author Name [facility] Organization [facility] Care Team Providers Care Thermit Welding Machine Operator Name Role Phone [facility] Unavailable Unavailable Social History Combined list of available smoking, tobacco, and other social history from Department of Defense and Veterans Affairs facilities. Social History Type Response Date Comment Sourc e This section is an empty social history section. [facility]
--- OUTSIDE RECORDS SUMMARY | 2024-11-17 07:54 | XMS_ITS | Data Portability ---
Author Organization [facility] Address [address] [place] [address] Assessment No assessment recorded. Plan of Treatment Reminders Order Date Submit Date Provider Last Modified By Organization Details Last Modified Time Details Appointments None recorded. Lab estradiol , serum 2020 021 PAT [facility], [address] [place] [address], [address], [place], [address], 18:07:20 prolactin , serum 2020 021 PAT [facility], [facility] [facility], [address], [place], [address], 18:07:20 lh + FSH, serum 2020 021 PAT [facility] (Centralized Electronic Ordering - All Locations), Patient Can Go To The Location Of Their Choice, 13:03:19 dhea-sulf ate, serum 2020 021 PAT [facility] (Centralized Electronic Ordering - All Locations), Patient Can Go To The Location Of Their Choice, 18:07:20 testoster one, total, serum 2020 021 [email or web address] [facility] (Centralized Electronic Ordering - All Locations), Patient Can Go To The Location Of Their Choice, 16:28:36 CMP, serum or plasma 2020 021 PAT [facility] (Centralized Electronic Ordering - All Locations), Patient Can Go To The Location Of Their Choice, [id number] 18:42:19 lipid panel, serum 2020 021 [email or web address] [facility] (Centralized Electronic Ordering - All Locations), Patient Can Go To The Location Of Their Choice, [id number] 16:28:36 TSH, ultra-sen sitive, serum 2020 021 [facility], [address] [facility], [address], [place], [address], 18:42:20 ferritin, serum or plasma 2020 021 [facility], [address] [place] [address], [address], [place], [address], 18:42:19 iron + total iron-bind ing capacity (TIBC), serum 2020 021 [facility], [address] [facility], [address], [place], [address], 18:42:19 CBC w/ auto diff 2020 021 [facility], [address] [facility], [address], [place], [address], 18:42:20 pap, IG + HPV, cervical 2019 020 [facility], [address] [facility], [address], [place], [address], 0 09:10:40 urinalysi s, dipstick 2019 020 shamika In-Office Order, Internal Use Only DO Not Attach Compendium DO Not Attach Compendium, Do Not Delete/merge, [id number] 0 10:50:45 test, urine 2019 020 shamika In-Office Order, Internal Use Only DO Not Attach Compendium DO Not Attach Compendium, Do Not Delete/merge, [id number] 0 10:50:45 CBC w/ auto diff 2019 020 PAT [facility], [address] [facility], [address], [place], [address], 0 06:25:04 ferritin, serum or plasma 2019 020 tellisonrn [facility], [address] [facility], [address], [place], [address], 0 12:16:32 iron + total iron-bind ing capacity (TIBC), serum 2019 020 tellisonrn [facility], [address] [place] [address], [address], [place], [address], 0 12:16:32 bacterial vaginosis panel, vaginal 2019 020 PAT [facility] (Centralized Electronic Ordering - All Locations), Patient Can Go To The Location Of Their Choice, [facility] 0 06:04:54 culture, vaginal/r ectal, streptoco ccus group B 2019 020 PAT [facility] (Centralized Electronic Ordering - All Locations), Patient Can Go To The Location Of Their Choice, [facility] 0 06:04:55 lipid panel, serum 2019 020 PAT [facility], [address] [place] [address], [address], [place], [address], 0 06:25:05 CMP, serum or plasma 2019 020 PAT [facility], [address] [place] [address], [address], [place], [address], 0 06:25:05 prolactin , serum 2018 019 [facility], [address], [address], [place], [address], 9 10:10:36 lh + FSH, serum 2018 019 [facility], [address], [address], [place], [address], 9 10:10:35 estradiol , serum 2018 019 [facility], Juana Ringgilamichaelnaf[address], [address], [place], [address], 9 10:10:37 progester one, serum 2018 019 [facility], TikaYulia [address], [address], [place], [address], 9 10:10:38 CMP, serum or plasma 2018 019 [facility], Ju[address] Ringman[address], [address], [place], [address], 9 10:10:33 CBC w/ auto diff 2018 019 [facility], [address]man[address], [address], [place], [address], 9 10:10:33 lipid panel, serum 2018 019 [facility], [address]man[address], [address], [place], [address], 9 10:10:34 HbA1c (hemoglob in A1c), blood 2018 019 [facility], [address], [address], [place], [address], 9 10:10:35 vitamin D, 25-hydrox y, total, serum 2018 019 PAT [facility], [address] [facility], [address], [place], [address], 9 10:10:37 TSH, ultra-sen sitive, serum 2018 019 PAT [facility], [address] [facility], [address], [place], [address], 9 10:10:38 Referral urologist referral - Patinet to call and schedule appt. 2019 020 [email or web address] Not available 0 10:59:57 plastic surgeon referral - Patient to call and schedule appointme nt. 2019 020 [email or web address], [address] [facility], [place], [address], 0 10:43:06 urogyneco logist referral - Cystocele . Patient wants surgery 2018 019 [email or web address] Not available 0 15:20:54 Procedures None recorded. Surgeries hysterosc opy, with endometri al ablation (SURG) 2019 020 [facility] On [facility] Orders, [address] [place], [address], 0 01:26:01 Imaging US, pelvis, transabdo kenna + transvagi nal 2020 021 [facility], [address] [facility] [address], [place], [address], 1 16:24:34 MAMMO, screening , bilateral [address] [facility] ([facility] Sched[facility]), [address] [place], [address], 0 13:16:06 US, breast, bilateral 2018 019 [facility] ([facility] Call Sched[facility]), [address] [facility] [place], [address], 0 10:47:59 Medication Orders ibuprofen 800 mg tablet 2020 021 [id number], [address], [place], [address], 1 13:06:48 simvastat in 20 mg tablet 2019 020 [email or web address] Not available 0 15:09:05 multivita min tablet 2019 020 [email or web address] Not available 0 15:09:09 Calcium with Vitamin D 600 mg-10 mcg (400 unit) tablet 2019 020 [email or web address] Not available 0 15:09:07 Patient TargetsNo targets recorded. Patient Instructions Encounter Date Encounter Id Patient Instructions Last Modified By Organization Details Last Modified Time 06/03/2019 [id number] breast pain: care instructions [email or web address] Not available 06/03/2019 12:15:41 08/04/2019 [id number] mammogram: about this test [email or web address] Not available 08/04/2019 10:50:46 bladder training: care instructions mwasserman Not available 08/04/2019 11:13:17 kegel exercises: care instructions mwasserman Not available 08/04/2019 11:13:18 Stress Incontinence: Care Instructions mwasserman Not available 08/04/2019 11:13:18 high cholesterol: care instructions mwasserman Not available 08/04/2019 10:50:46 When You Want to Lose Weight: Care Instructions mwasserman Not available 08/04/2019 11:44:56 08/09/2020 [id number] progesterone mwasserman Not available 0 08/09/2020 13:06:45 heavy menstrual periods: care instructions mwasserman Not available 08/09/2020 13:09:00 anemia: care instructions mwasserman Not available 08/09/2020 13:02:24 Reason for Referral Urogynecologist Referral for Cystocele Cystocele. Patient wants surgery Referring Physician: Belkys Real, Special Projects Coordinator, Encounter Date: 06/03/2019 Urologist Referral for Femal e stress incontinence Patinet to call and schedule appt. Referring Physician: Dionte Davenport, HAT BLOCKING OPERATOR, Encounter Date: 08/04/2019 Plastic Surgeon Referral for Macromastia Chronic back pain Patient to call and schedule appointment. Referring Physician: Dionte Davenport HAT BLOCKING OPERATOR, Encounter Date: 08/04/2019 Results Created Date Observation Date Name Description Value Unit Range Abnormal Flag Note LastModifiedBy Organization Detail LastModifiedTime 08/04/19 20 08/04/2019 urina lysis , dipst ick Leukocytes Trace Not Available In-Offi ce Order Internal Use Only DO Not Attach Compendium DO Not Attach Compendium, Do Not Delete/merge, [id number] 08/04/2019 10:42:15 08/04/19 20 08/04/2019 urina lysis , dipst ick Nitrite negati ve Not Available In-Office Order Internal Use Only DO Not Attach Compendium DO Not Attach Compendium, Do Not Delete/merge, 08/04/2019 10:42:15 08/04/19 20 08/04/2019 urina lysis , dipst ick Urobilinogen .2 Not Available In-Of fice Order Internal Use Only DO Not Attach Compendium DO Not Attach Compendium, Do Not Delete/merge, [id number] 08/04/2019 10:42:15 08/04/19 20 08/04/2019 urina lysis , dipst ick Protein Negati ve Not Available In-Office Order Internal Use Only DO Not Attach Compendium DO Not Attach Compendium, Do Not Delete/merge, 08/04/2019 10:42:15 08/04/1908/04/2019 urina lysis , dipst ick pH 7.0 Not Available In-Office Order Internal Use Only DO Not Attach Compendium DO Not Attach Compendium, Do Not Delete/merge, 08/04/2019 10:42:15 08/04/19 20 08/04/2019 urina lysis , dipst ick Blood Negati ve Not Available In-Office Order Internal Use Only DO Not Attach Compendium DO Not Attach Compendium, Do Not Delete/merge, 08/04/2019 10:42:15 08/04/19 20 08/04/2019 urina lysis , dipst ick Specific [place] 1.025 Not Available In-Off ice Order Internal Use Only DO Not Attach Compendium DO Not Attach Compendium, Do Not Delete/merge, 08/04/2019 10:42:15 08/04/19 20 08/04/2019 urina lysis , dipst ick Ketone Negati ve Not Available In-Office Order Internal Use Only DO Not Attach Compendium DO Not Attach Compendium, Do Not Delete/merge, 08/04/2019 10:42:15 08/04/19 20 08/04/2019 urina lysis , dipst ick Bilirubin Negati ve Not Available In-Office Order Internal Use Only DO Not Attach Compendium DO Not Attach Compendium, Do Not Delete/merge, 08/04/2019 10:42:15 08/04/19 20 08/04/2019 urina lysis , dipst ick Glucose Negati ve Not Available In-Office Order Internal Use Only DO Not Attach Compendium DO Not Attach Compendium, Do Not Delete/merge, 08/04/2019 10:42:15 06/03/20 19 06/04/2019 CBC w/ auto diff WBC 9.8 x10e3 /uL 3.4-10 .8 Not Available [facility] ([facility]) [address] [facility], [place], [address], 06/04/2019 10:10:33 06/03/20 19 06/04/2019 CBC w/ auto diff RBC 4.94 x10e6 /uL 3.77-5 .28 Not Available [facility] ([facility]) [address] [facility], [place], [address], 06/04/2019 10:10:33 06/03/20 19 06/04/2019 CBC w/ auto diff hemoglobin 13.8 g/dL 11.1-1 5.9 Not Available [facility] ([facility]) [address] [facility], [place], [address], 06/04/2019 10:10:33 06/03/20 19 06/04/2019 CBC w/ auto diff hematocrit 42.6 % 34.0-4 6.6 Not Available [facility] ([facility]) [address] [facility], [place], [address], 06/04/2019 10:10:33 06/03/20 19 06/04/2019 CBC w/ auto diff MCV 86 fL 79-97 Not Available [facility] ([facility]) [address] [place], [address], 06/04/2019 10:10:33 06/03/20 19 06/04/2019 CBC w/ auto diff MCH 27.9 pg 26.6-3 3.0 Not Available [facility] ([facility]) [address] [facility], [place], [address], 06/04/2019 10:10:33 06/03/20 19 06/04/2019 CBC w/ auto diff MCHC 32.4 g/dL 31.5-3 5.7 Not Available [facility] ([facility]) [address] [facility], [place], [address], 06/04/2019 10:10:33 06/03/20 19 06/04/2019 CBC w/ auto diff RDW 14.2 % 12.3-1 5.4 Not Available [facility] ([facility]) [address] [place], [address], 06/04/2019 10:10:33 06/03/20 19 06/04/2019 CBC w/ auto diff platelets 382 x10e3 /uL 150-45 0 Not Available [facility] ([facility]) [address] [place], [address], 06/04/2019 10:10:33 06/03/20 19 06/04/2019 CBC w/ auto diff neutrophils 71 % not estab. Not Available [facility] ([facility]) [address] [place], [address], 06/04/2019 10:10:33 06/03/20 19 06/04/2019 CBC w/ auto diff lymphs 19 % not estab. Not Available [facility] ([facility]) [address] [place], [address], 06/04/2019 10:10:33 06/03/20 19 06/04/2019 CBC w/ auto diff monocytes 7 % not estab. Not Available [facility] ([facility]) [address] [place], [address], 06/04/2019 10:10:33 06/03/20 19 06/04/2019 CBC w/ auto diff eos 3 % not estab. Not Available [facility] ([facility]) [address] [facility], [place], [address], 06/04/2019 10:10:33 06/03/20 19 06/04/2019 CBC w/ auto diff basos 0 % not estab. Not Available [facility] ([facility]) [address] [facility], [place], [address], 06/04/2019 10:10:33 06/03/20 19 06/04/2019 CBC w/ auto diff immature cells TECHNICAL SUPPORT REPRESENTATIVE Not Available [facility] ([facility]) [address] [place], [address], 06/04/2019 10:10:33 06/03/20 19 06/04/2019 CBC w/ auto diff neutrophils (absolute) 6.9 x10e3 /uL 1.4-7. 0 Not Available [facility] ([facility]) [address] [place], [address], 06/04/2019 10:10:33 06/03/20 19 06/04/2019 CBC w/ auto diff lymphs (absolute) 1.9 x10e3 /uL 0.7-3. 1 Not Available [facility] ([facility]) [address] [facility], [place], [address], 06/04/2019 10:10:33 06/03/20 19 06/04/2019 CBC w/ auto diff monocytes(ab solute) 0.7 x10e3 /uL 0.1-0. 9 Not Available [facility] ([facility]) [address] [facility], [place], [address], 06/04/2019 10:10:33 06/03/20 19 06/04/2019 CBC w/ auto diff eos (absolute) 0.3 x10e3 /uL 0.0-0. 4 Not Available [facility] ([facility]) [address] [facility], [place], [address], 06/04/2019 10:10:33 06/03/20 19 06/04/2019 CBC w/ auto diff baso (absolute) 0.0 x10e3 /uL 0.0-0. 2 Not Available [facility] ([facility]) [address] [place], [address], 06/04/2019 10:10:33 06/03/20 19 06/04/2019 CBC w/ auto diff immature granulocytes 0 % not estab. Not Available [facility] ([facility]) [address] [facility], [place], [address], 06/04/2019 10:10:33 06/03/20 19 06/04/2019 CBC w/ auto diff immature grans (abs) 0.0 x10e3 /uL 0.0-0. 1 Not Available [facility] ([facility]) [address] [place], [address], 06/04/2019 10:10:33 06/03/20 19 06/04/2019 CBC w/ auto diff NRBC TECHNICAL SUPPORT REPRESENTATIVE Not Available [facility] ([facility]) [address] [place], [address], 06/04/2019 10:10:33 06/03/20 19 06/04/2019 CBC w/ auto diff hematology comments: TECHNICAL SUPPORT REPRESENTATIVE Not Available [facility] ([facility]) [address] [place] [place], [address], 06/04/2019 10:10:33 06/03/20 19 06/04/2019 CMP, serum or plasm a glucose 81 mg/dL 65-99 Not Available [facility] ([facility]) [address] [place] [place], [address], 06/04/2019 10:10:33 06/03/20 19 06/04/2019 CMP, serum or plasm a BUN 11 mg/dL 6-24 Not Available [facility] ([facility]) [address] [place] [place], [address], 06/04/2019 10:10:33 06/03/20 19 06/04/2019 CMP, serum or plasm a creatinine 0.76 mg/dL 0.57-1 .00 Not Available [facility] ([facility]) [address] [place] [place], [address], 06/04/2019 10:10:33 06/03/20 19 06/04/2019 CMP, serum or plasm a eGFR if nonafricn AM 98 mL/mi n/1.7 3 >59 Not Available [facility] ([facility]) [address] [place] [place], [address], 06/04/2019 10:10:33 06/03/20 19 06/04/2019 CMP, serum or plasm a eGFR if africn AM 113 mL/mi n/1.7 3 >59 Not Available [facility] ([facility]) [address] [place] [place], [address], 06/04/2019 10:10:33 06/03/20 19 06/04/2019 CMP, serum or plasm a BUN/creatini ne ratio 14 9-23 Not Available [facility] ([facility]) [address] [place], [address], 06/04/2019 10:10:33 06/03/20 19 06/04/2019 CMP, serum or plasm a sodium 140 mmol/ L 134-14 4 Not Available [facility] ([facility]) [address] [place] [place], [address], 06/04/2019 10:10:33 06/03/20 19 06/04/2019 CMP, serum or plasm a potassium 4.4 mmol/ L 3.5-5. 2 Not Available [facility] ([facility]) [address] [place], [address], 06/04/2019 10:10:33 06/03/20 19 06/04/2019 CMP, serum or plasm a chloride 102 mmol/ L 96-106 Not Available [facility] ([facility]) [address] [place], [address], 06/04/2019 10:10:33 06/03/20 19 06/04/2019 CMP, serum or plasm a carbon dioxide, total 22 mmol/ L 20-29 Not Available [facility] ([facility]) [address] [place], [address], 06/04/2019 10:10:33 06/03/20 19 06/04/2019 CMP, serum or plasm a calcium 9.2 mg/dL 8.7-10 .2 Not Available [facility] ([facility]) [address] [place], [address], 06/04/2019 10:10:33 06/03/20 19 06/04/2019 CMP, serum or plasm a protein, total 7.4 g/dL 6.0-8. 5 Not Available [facility] ([facility]) [address] [place], [address], 06/04/2019 10:10:33 06/03/20 19 06/04/2019 CMP, serum or plasm a albumin 4.3 g/dL 3.5-5. 5 Not Available [facility] ([facility]) [address] [facility] [place], [address], 06/04/2019 10:10:33 06/03/20 19 06/04/2019 CMP, serum or plasm a globulin, total 3.1 g/dL 1.5-4. 5 Not Available [facility] ([facility]) [address] [facility] [place], [address], 06/04/2019 10:10:33 06/03/20 19 06/04/2019 CMP, serum or plasm a A/G ratio 1.4 1.2-2. 2 Not Available [facility] ([facility]) [address] [facility] [place], [address], 06/04/2019 10:10:33 06/03/2006/04/2019 CMP, serum or plasm a bilirubin, total 0.3 mg/dL 0.0-1. 2 Not Available [facility] ([facility]) [address] [facility] [place], [address], 06/04/2019 10:10:33 06/03/2006/04/2019 CMP, serum or plasm a alkaline phosphatase 71 IU/L 39-117 Not Available [facility]) [address] [facility] [place], [address], 06/04/2019 10:10:33 06/03/2006/04/2019 CMP, serum or plasm a AST (SGOT) 19 IU/L 0-40 Not Available [facility] ([facility]) [address] [facility] [place], [address], 06/04/2019 10:10:33 06/03/20 19 06/04/2019 CMP, serum or plasm a ALT (SGPT) 16 IU/L 0-32 Not Available [facility] ([facility]) [address] [place], [address], 06/04/2019 10:10:33 06/03/20 19 06/04/2019 lipid panel , serum cholesterol, total 271 mg/dL 100-19 9 above high normal Not Available [facility] ([facility]) [address] [facility], [place], [address], 06/04/2019 10:10:34 06/03/20 19 06/04/2019 lipid panel , serum triglyceride s 164 mg/dL 0-149 above high normal Not Available [facility] ([facility]) [address] [facility], [place], [address], 06/04/2019 10:10:34 06/03/20 19 06/04/2019 lipid panel , serum HDL cholesterol 62 mg/dL >39 Not Available [facility]) [address] [facility], [place], [address], 06/04/2019 10:10:34 06/03/20 19 06/04/2019 lipid panel , serum VLDL cholesterol samy 33 mg/dL 5-40 Not Available [facility] ([facility]) [address] [facility], [place], [address], 06/04/2019 10:10:34 06/03/20 19 06/04/2019 lipid panel , serum LDL cholesterol calc 176 mg/dL 0-99 above high normal Not Available [facility] ([facility]) [address] [facility], [place], [address], 06/04/2019 10:10:34 06/03/20 19 06/04/2019 lipid panel , serum comment: TECHNICAL SUPPORT REPRESENTATIVE Not Available [facility] ([facility]) [address] [facility], [place], [address], 06/04/2019 10:10:34 06/03/20 19 06/04/2019 lh + FSH, serum LH 4.3 mIU/m L Adult Femal e: Folli cular phase 2.4 - 12.6 Ovula tion phase 14.0 - 95.6 Lutea l phase 1.0 - 11.4 Postm enopa usal 7.7 - 58.5 Not Available [facility] ([facility]) [address] [place], [address], 06/04/2019 10:10:35 06/03/20 19 06/04/2019 lh + FSH, serum FSH 19.9 mIU/m L Adult Femal e: Folli cular phase 3.5 - 12.5 Ovula tion phase 4.7 - 21.5 Lutea l phase 1.7 - 7.7 Postm enopa usal 25.8 - 134.8 Not Available [facility] ([facility]) [address] [place], [address], 06/04/2019 10:10:35 06/03/20 19 06/04/2019 HbA1c (hemo globi n A1c), blood hemoglobin A1C 5.5 % 4.8-5. 6 Predi abete s: 5.7 - 6.4 Diabe hannah: >6.4 Glyce kerry contr ol for adult s with diabe hannah: <7.0 Not Available [facility] ([facility]) [address] [place], [address], 06/04/2019 10:10:35 06/03/20 19 06/04/2019 prola ctin, serum prolactin 6.7 NG/mL 4.8-23 .3 Not Available [facility] ([facility]) [address] [place], [address], 06/04/2019 10:10:36 06/03/20 19 06/04/2019 estra diol, serum estradiol 22.0 pg/mL Adult Femal e: Folli cular phase 12.5 - 166.0 Ovula tion phase 85.8 - 498.0 Lutea l phase 43.8 - 211.0 Postm enopa usal <6.0 - 54.7 Pregn antoine 1st trime ster 215.0 - >4300 .0 Girls (1-10 years ) 6.0 - 27.0 Ruben ECLIA metho dolog y Not Available [facility] ([facility]) [address] [place], [address], 06/04/2019 10:10:36 06/03/20 19 06/04/2019 vitam in D, 25-hy droxy , total , serum vitamin D, 25-hydroxy 15.6 NG/mL 30.0-1 00.0 below low normal Vitam in D defic iency has been defin ed by the Insti tute of Medic ine and an Endoc rine Socie ty pract ice guide line as a level of serum 25-OH vitam in D less than 20 ng/mL (1,2) . The Endoc rine Socie ty went on to [facility] er defin e vitam in D insuf ficie ncy as a level betwe en 21 and 29 ng/mL (2). 1. IOM (Inst itute of Medic ine). 2009. Dieta ry refer ence intak es for calci um and D. Juan jones [place]: The [facility] . 2. Irving apple [place], [place] faria [place], [place] off-F errar i ROBERTSON, et al. Evalu ation , treat ment, and preve ntion of vitam in D defic iency : an Endoc rine Socie ty clini samy pract ice guide line. JCEM. 2010; 96(7) :1911 -30. Not Available [facility] ([facility]) [address] [facility], [place], [address], 06/04/2019 10:10:37 06/03/20 19 06/04/2019 TSH, ultra -sens itive , serum TSH 2.930 uIU/m L 0.450- 4.500 Not Available [facility] ([facility]) [address] [place], [address], 06/04/2019 10:10:38 06/03/20 19 06/04/2019 proge stero ne, serum progesterone 0.4 NG/mL Folli cular phase 0.1 - 0.9 Lutea l phase 1.8 - 23.9 Ovula tion phase 0.1 - 12.0 Pregn ant First trime ster 11.0 - 44.3 Secon d trime ster 25.4 - 83.3 Third trime ster 58.7 - 214.0 Postm enopa usal 0.0 - 0.1 Not Available [facility] ([facility]) [address] [place], [address], 06/04/2019 10:10:38 08/04/19 20 08/05/2019 CBC w/ auto diff WBC 6.8 x10e3 /uL 3.4-10 .8 Not Available [facility] ([facility]) [address] [facility], [place], [address], 08/05/2019 06:25:04 08/04/1908/05/2019 CBC w/ auto diff RBC 4.83 x10e6 /uL 3.77-5 .28 Not Available [facility] ([facility]) [address] [place], [address], 08/05/2019 06:25:04 08/04/19 20 08/05/2019 CBC w/ auto diff hemoglobin 13.4 g/dL 11.1-1 5.9 Not Available [facility] ([facility]) [address] [place], [address], 08/05/2019 06:25:04 08/04/1908/05/2019 CBC w/ auto diff hematocrit 42.6 % 34.0-4 6.6 Not Available [facility] ([facility]) [address] [place], [address], 08/05/2019 06:25:04 08/04/19 20 08/05/2019 CBC w/ auto diff MCV 88 fL 79-97 Not Available [facility] ([facility]) [address] [place], [address], 08/05/2019 06:25:04 08/04/1908/05/2019 CBC w/ auto diff MCH 27.7 pg 26.6-3 3.0 Not Available [facility] ([facility]) [address] [place], [address], 08/05/2019 06:25:04 08/04/19 20 08/05/2019 CBC w/ auto diff MCHC 31.5 g/dL 31.5-3 5.7 Not Available [facility] ([facility]) [address] [facility], [place], [address], 08/05/2019 06:25:04 08/04/1908/05/2019 CBC w/ auto diff RDW 13.0 % 11.7-1 5.4 Not Available [facility] ([facility]) [address] [facility], [place], [address], 08/05/2019 06:25:04 08/04/19 20 08/05/2019 CBC w/ auto diff platelets 398 x10e3 /uL 150-45 0 Not Available [facility] ([facility]) [address] [facility], [place], [address], 08/05/2019 06:25:04 08/04/19 20 08/05/2019 CBC w/ auto diff neutrophils 61 % not estab. Not Available [facility] ([facility]) [address] [place], [address], 08/05/2019 06:25:04 08/04/19 20 08/05/2019 CBC w/ auto diff lymphs 25 % not estab. Not Available [facility] ([facility]) [address] [place], [address], 08/05/2019 06:25:04 08/04/19 20 08/05/2019 CBC w/ auto diff monocytes 8 % not estab. Not Available [facility] ([facility]) [address] [place], [address], 08/05/2019 06:25:04 08/04/19 20 08/05/2019 CBC w/ auto diff eos 5 % not estab. Not Available [facility] ([facility]) [address] [place], [place], [address]|[id number]|2024-11-17 07:54:00|2024-11-17 07:54:00|XMS_ITS|RICKEY SARAH|External Medical Summaries|[id number]|" Data Portability Created on: November 17, 2024 Rogelio Nina .[id number] : [id number] Sex: Female Author Organization [place] - [facility] [employer], Main Office Address [address] [place] [address] Assessment Encounter Date Assessment Date Assessment LastModified by Organization Details LastModified Time 01/28/2023 01/28/2023 Cscope- ordered- Castillo WWE- CLINICAL RESEARCH DIRECTOR- Aris Mammogram- ordered Call office if worse, ER if life-threatening illness RTC in 1 month She voiced understanding of plan and agrees over 60 min spent with patient, over half spent on counseling, reviewing her multiple medical complaints and test request, and discussing plan of care Not available 01/28/2023 13:28:40 03/24/2023 03/24/2023 Cscope- ordered- Castillo WWE- CLINICAL RESEARCH DIRECTOR- Aris Mammogram- ordered Call office if worse, ER if life-threatening illness RTC in 3 months She voiced understanding of plan and agrees [email or web address] Not available 03/24/2023 13:22:26 Plan of Treatment Reminders Order Date Submit Date Provider Last Modified By Organization Details Last Modified Time Details Appointments None recorded. Lab ferritin, serum or plasma [address] [facility] (Lab), [address] [place], [address], 14:58:18 iron + total iron-bindin g capacity (TIBC), serum [address] [facility] (Lab), [address] [place], [address], 3 14:04:49 vitamin B12 + folate, serum or blood [address] (Lab), [address] [place], [address], 3 11:26:48 CBC w/ auto diff [address] [facility] (Lab), [address] [place], [address], 3 13:36:07 CMP, serum or plasma [address] [facility] (Lab), [address] [place], [address], 3 14:59:09 lipid panel, serum [address] [facility] (Lab), [address] [place], [address], 3 14:59:16 TSH, serum or plasma [address] [facility] (Lab), [address] [place], [address], 3 14:28:46 vitamin D, 25-hydroxy, total, serum [address] (Lab), [address] [place], [address], 3 11:26:47 lipid panel, serum [address] [facility] (Lab), [address] [place], [address], 3 14:35:14 glycohemogl obin, total, blood [address] [facility] (Lab), [address] [place], [address], 3 15:39:15 CMP, serum or plasma [address] [facility] (Lab), [address] [place], [address], 3 14:35:25 CBC w/ auto diff [address] [facility] (Lab), [address] [place], [address], 3 14:24:14 insulin, serum [address] [facility] (Lab), [address] [place], [address], 3 12:13:16 TSH, serum or plasma [address] [facility] (Lab), [address] [place], [address], 3 14:59:15 T4, free, serum [address] [facility] (Lab), [address] [place], [address], 3 14:50:02 thyroid peroxidase (tpo) Ab, serum [address] [facility] (Lab), [address] [place], [address], 3 10:12:58 T3, free, serum or plasma [address] [facility] (Lab), [address] [place], [address], 3 14:50:06 iron + total iron-bindin g capacity (TIBC), serum [address] [facility] (Lab), [address] [place], [address], 3 14:34:38 vitamin B12 + folate, serum or blood [address] (Lab), [address] [place], [address], 3 09:30:15 ferritin, serum or plasma [address] 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 referral 2022 023 [facility], [address] [place] [address], [address], 4 09:26:[address] referral 2022 023 [facility], [address] [place] [address], [address], 4 09:26:19 neurologist referral 2022 023 Gaudencio Reynoso MD, [address] [facility] [address] [place] [address], [place], [address], 4 09:26:[address] referral 2022 023 [facility], [address] [place] [address], [address], 4 09:26:16 neurologist referral 2022 023 leo Reynoso MD, [address] [facility], [place], [address], 4 09:26:17 Procedures colonoscopy screening (PROC) 2022 023 leo Castillo MD, [address], [address], [place], [address], 3 09:05:48 colonoscopy screening (PROC) 2022 023 leo Castillo MD, [address], [facility] [address], [place], [address], 3 09:05:47 Surgeries None recorded. Imaging MAMMO, screening, bilateral [address] ([facility] Scheduling), [address] [place], [address], 3 10:43:44 XR, cervical spine, 2 or 3 view 2022 023 [facility] ([facility]), [address] [place], [address], 3 13:30:07 XR, finger(s), 2 or more view - left first (pointer) finger [address] ([facility]), [address] [place], [address], 3 10:43:44 XR, cervical spine, 2 or 3 view [address] ([facility] Scheduling), [address] [place], [address], 3 10:43:43 MAMMO, screening, bilateral 2022 023 [email or web address] [facility] ([facility] Scheduling), [address] [place], [address], 10:43:43 Medication Orders None recorded. Patient TargetsNo targets recorded. Patient Instructions Encounter Date Encounter Id Patient Instructions Last Modified By Organization Details Last Modified Time 01/28/2023 [id number] INFLUENZA VACCIN E TD/TDAP Recommended today, patient declined Ordered Patient will get at local pharmacy/health department PNEUMONIA VACCINE Ordered Recommend ed today, patient declined Patient will get at local pharmacy/health department Recomm ended at age 67 SHINGLES Not indicated MAMMOGRAM: Last Mammogram __ Recommended today, but patient declined Ordered DEXA SCAN Recommended today, but patient declined Ordered No screening indicated CERVICAL SCREENING/PELVIC EXAMINATION Recommended today, but patient declined Ordered No screening necessary patient is up to date COLORECTAL SCREENING: Last Colonoscopy Recommended today, but patient declined Ordered DEPRESSION SCREENING Negative BMI Overweight Approp riate Underweight Obesity continue your current weight loss efforts NUTRITION Continue healthy eating & exercise PHYSICAL ACTIVITY Need more exercise/physical activity minimum of 10-20 minutes of activity that causes mild breathlessness/da y minimum of 20-30 minutes activity that causes mild breathlessness/da y minimum of 30-40 minutes of activity that causes mild breathlessness/da y VISION Ordered Recommend ed today ALCOHOL USE No alcohol use Occasional/So cial Use TOBACCO USE non smoker LUNG CANCER SCREENING Non Smoker-not indicated SEXUALLY ACTIVE No HEPATITIS C SCREENING Not indicated GLUCOSE SCREENING Ordered LIPID SCREENING Ordered Not available 01/28/2023 13:31:09 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 Referring Physician: Gretel Romero, Internal Medicine, Encounter Date: 01/28/2023 Neurologist Referral for Bernardino adams Referring Physician: Gretel Romero, Internal Medicine, Encounter Date: 01/28/2023 Neurologist Referral for Bernardino angie Referring Physician: Gretel Romero, Internal Medicine, Encounter Date: 03/24/2023 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 Referring Physician: Gretel Romero, Internal Medicine, Encounter Date: 03/24/2023 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 Referral for Seaso nal allergy Referring Physician: Gretel Romero, Internal Medicine, Encounter Date: 03/24/2023 Results Created Date Observation Date Name Description Value Unit Range Abnormal Flag Note LastModifiedBy Organization Detail LastModifiedTime 01/29/20 23 01/28/2023 CBC/C OMPLE TE BLD COUNT W/DIF F white blood cells 6.7 x10'3 /uL 4.2-10 .8 Not Available [facility] (Lab) [address] [place], [address], 01/28/2023 14:24:14 01/29/20 23 01/28/2023 CBC/C OMPLE TE BLD COUNT W/DIF F red blood cells 5.20 x10'6 /uL 3.80-5 .20 Not Available [facility] (Lab) [address] [place], [address], 01/28/2023 14:24:14 01/29/20 23 01/28/2023 CBC/C OMPLE TE BLD COUNT W/DIF F hemoglobin 15.1 g/dL 12.0-1 5.6 Not Available [facility] (Lab) [address] [place], [address], 01/28/2023 14:24:14 01/29/20 23 01/28/2023 CBC/C OMPLE TE BLD COUNT W/DIF F hematocrit 46.7 % 35.7-4 5.7 high Not Available [facility] (Lab) [address] [place], [address], 01/28/2023 14:24:14 01/29/20 23 01/28/2023 CBC/C OMPLE TE BLD COUNT W/DIF F mean red cell volume 89.8 fL 82.0-9 9.0 Not Available [facility] (Lab) [address] [place], [address], 01/28/2023 14:24:14 01/29/20 23 01/28/2023 CBC/C OMPLE TE BLD COUNT W/DIF F mean red cell hemoglobin 29.0 pg 27.0-3 3.0 Not Available [facility] (Lab) [address] [place], [address], 01/28/2023 14:24:14 01/29/20 23 01/28/2023 CBC/C OMPLE TE BLD COUNT W/DIF F mean RBC HGB concentratio n 32.3 g/dL 31.0-3 6.0 Not Available [facility] (Lab) [address] [place], [address], 01/28/2023 14:24:14 01/29/2001/28/2023 CBC/C OMPLE TE BLD COUNT W/DIF F red cell distribution width 12.5 % 11.8-1 5.5 Not Available [facility] (Lab) [address] [place], [address], 01/28/2023 14:24:14 01/29/2001/28/2023 CBC/C OMPLE TE BLD COUNT W/DIF F platelets 275 x10'3 /uL 150-40 0 Not Available [facility] (Lab) [address] [place], [address], 01/28/2023 14:24:14 01/29/2001/28/2023 CBC/C OMPLE TE BLD COUNT W/DIF F mean platelet volume 11.0 fL 9.0-12 .4 Not Available [facility] (Lab) [address] [place], [address], 01/28/2023 14:24:14 01/29/2001/28/2023 CBC/C OMPLE TE BLD COUNT W/DIF F neutrophils 55.9 % 39.0-7 2.0 Not Available [facility] (Lab) [address] [place], [address], 01/28/2023 14:24:14 01/29/20 23 01/28/2023 CBC/C OMPLE TE BLD COUNT W/DIF F lymphocytes 33.4 % 16.0-4 7.0 Not Available [facility] (Lab) [address] [place], [address], 01/28/2023 14:24:14 01/29/20 23 01/28/2023 CBC/C OMPLE TE BLD COUNT W/DIF F monocytes 6.1 % 5.0-12 .0 Not Available [facility] (Lab) [address] [place], [address], 01/28/2023 14:24:14 01/29/2001/28/2023 CBC/C OMPLE TE BLD COUNT W/DIF F eosinophils 3.6 % 1.0-7. 0 Not Available [facility] (Lab) [address] [place], [address], 01/28/2023 14:24:14 01/29/2001/28/2023 CBC/C OMPLE TE BLD COUNT W/DIF F basophils 0.7 % 0.0-2. 0 Not Available [facility] (Lab) [address] [place], [address], 01/28/2023 14:24:14 01/29/2001/28/2023 CBC/C OMPLE TE BLD COUNT W/DIF F immature granulocytes 0.3 % 0.00-0 .50 Not Available [facility] (Lab) [address] [place], [address], 01/28/2023 14:24:14 01/29/2001/28/2023 CBC/C OMPLE TE BLD COUNT W/DIF F neutrophils, absolute count 3.72 x10'3 /uL 1.5-8. 0 Not Available [facility] (Lab) [address] [place], [address], 01/28/2023 14:24:14 01/29/20 23 01/28/2023 CBC/C OMPLE TE BLD COUNT W/DIF F lymphocytes, absolute count 2.23 x10'3 /uL 1.07-3 .43 Not Available [facility] (Lab) [address] [place], [address], 01/28/2023 14:24:14 01/29/20 23 01/28/2023 CBC/C OMPLE TE BLD COUNT W/DIF F monocytes, absolute count 0.41 x10'3 /uL 0.29-0 .99 Not Available [facility] (Lab) [address] [place], [address], 01/28/2023 14:24:14 01/29/2001/28/2023 CBC/C OMPLE TE BLD COUNT W/DIF F eosinophils, absolute count 0.24 x10'3 /uL 0.02-0 .53 Not Available [facility] (Lab) [address] [place], [address], 01/28/2023 14:24:14 01/29/2001/28/2023 CBC/C OMPLE TE BLD COUNT W/DIF F basophils, absolute count 0.05 x10'3 /uL 0.01-0 .08 Not Available [facility] (Lab) [address] [place], [address], 01/28/2023 14:24:14 01/29/2001/28/2023 CBC/C OMPLE TE BLD COUNT W/DIF F immature granulocytes ,absolute 0.02 x10'3 /uL 0.00-0 .05 Not Available [facility] (Lab) [address] [place], [address], 01/28/2023 14:24:14 01/29/20 23 01/28/2023 CBC/C OMPLE TE BLD COUNT W/DIF F nucleated red blood cells 0.0 % -0 Not Available [facility] (Lab) [address] [place], [address], 01/28/2023 14:24:14 01/29/20 23 01/28/2023 CBC/C OMPLE TE BLD COUNT W/DIF F NRBC# 0.00 x10'3 /uL Not Available [facility] (Lab) [address] [place], [address], 01/28/2023 14:24:14 01/29/20 23 01/28/2023 IRON/ TIBC PANEL total iron binding capacity 356 mcg/d L 265-47 5 Not Available [facility] (Lab) [address] [place], [address], 01/28/2023 14:49:25 01/29/20 23 01/28/2023 IRON/ TIBC PANEL % transferrin saturation 19 % 20-55 low Not Available [facility] (Lab) [address] [place], [address], 01/28/2023 14:49:25 01/29/20 23 01/28/2023 IRON/ TIBC PANEL unsaturated iron bind capacity 287 mcg/d L 126-38 2 Not Available [facility] (Lab) [address] [place], [address], 01/28/2023 14:49:25 01/29/20 23 01/28/2023 IRON/ TIBC PANEL iron 69 mcg/d L 42-175 Not Available [facility] (Lab) [address] [place], [address], 01/28/2023 14:49:25 01/29/20 23 01/28/2023 LIPID PANEL cholesterol 253 mg/dL 140-19 9 high NIH JESSE NSUS RECOM MENDA TION FOR NAHEED STERO L: ADULT CHILD LOW RISK: <200 <170 BORDE RLINE : <200- 239 ----- HIGH RISK: >240 >200 Not Available [facility] (Lab) [address] [place], [address], 01/28/2023 14:35:14 01/29/20 23 01/28/2023 LIPID PANEL triglyceride s 101 mg/dL 0-150 NIH JESSE NSUS REPOR T RECOM MENDA TION FOR TRIGL YCERI PERLA: ADULT CHILD LOW RISK: <150 ----- BODER LINE: 150-1 99 ----- HIGH RISK: >200 ----- Not Available [facility] (Lab) [address] [place], [address], 01/28/2023 14:35:14 01/29/20 23 01/28/2023 LIPID PANEL HDL cholesterol 65 mg/dL 40- Not Available [facility] (Lab) [address] [place], [address], 01/28/2023 14:35:14 01/29/20 23 01/28/2023 LIPID PANEL LDL cholesterol, calculated 168 mg/dL 0-130 high NIH JESSE NSUS REPOR T RECOM MENDA TIONS FOR LDL: ADULT CHILD LOW RISK <130 <110 (OPTI MAL LDL) <100 ----- BORDE RLINE : 130-1 59 ----- HIGH RISK: >160 >130 A TRIGL YCERI DE RESUL T >400 INVAL IDATE S THE CALCU LATIO N FOR LDL FRACT IONAT ION - THE LDL RESUL T WILL NOT BE REPOR ALVIN. Not Available [facility] (Lab) [address] [place], [address], 01/28/2023 14:35:14 01/29/20 23 01/28/2023 COMPR EHENS INES METAB OLIC PANEL sodium 142 mmol/ L 137-14 5 Not Available [facility] (Lab) [address] [place], [address], 01/28/2023 14:35:25 01/29/20 23 01/28/2023 COMPR EHENS INES METAB OLIC PANEL potassium 4.0 mmol/ L 3.5-5. 1 Not Available [facility] (Lab) [address] [place], [address], 01/28/2023 14:35:25 01/29/20 23 01/28/2023 COMPR EHENS INES METAB OLIC PANEL chloride 104 mmol/ L 98-107 Not Available [facility] (Lab) [address] [place], [address], 01/28/2023 14:35:25 01/29/20 23 01/28/2023 COMPR EHENS INES METAB OLIC PANEL carbon dioxide 26 mmol/ L 22-30 Not Available [facility] (Lab) [address] [facility] [place], [address], 01/28/2023 14:35:25 01/29/20 23 01/28/2023 COMPR EHENS INSE METAB OLIC PANEL anion gap 16.0 mmol/ L 14-22 Not Available [facility] (Lab) [address] [place], [address], 01/28/2023 14:35:25 01/29/20 23 01/28/2023 COMPR EHENS INES METAB OLIC PANEL glucose 82 mg/dL 70-99 Not Available [facility] (Lab) [address] [place], [address], 01/28/2023 14:35:25 01/29/20 23 01/28/2023 COMPR EHENS INES METAB OLIC PANEL BUN 10 mg/dL 8-19 Not Available [facility] (Lab) [address] [facility] [place], [address], 01/28/2023 14:35:25 01/29/20 23 01/28/2023 COMPR EHENS INES METAB OLIC PANEL creatinine 0.76 mg/dL 0.66-1 .25 Not Available [facility] (Lab) [address] [place], [address], 01/28/2023 14:35:25 01/29/20 23 01/28/2023 COMPR EHENS INES METAB OLIC PANEL GFR >60 Refer ence Range : [place] ge GFR Healt hy Adult : >60 mL/mi n/1.7 3 m2 Chron ic Kidne y Disea se: 15-60 mL/mi n/1.7 3 m2 Kidne y Failu re: <15/m L/min /1.73 m2 www.n iddk. nih.g ov The MDRD study equat ion has not been valid ated in child mona <18 years of age; pregn ant women ; the elder ly >85 years of age; or in some racia l or ethni c subgr oups, such as Hispa nics. Outsi de the valid ated sophia eters , estim ated GFR is less accur ate, requi ring clini samy judgm ent on a case- by-ca se basis . Clini samy inter preta tion for other races and ages must be made by the clini ashley. The MDRD study equat ion has not been valid ated for the evalu ation of serum creat inine relat ed to nutri zohaib l statu s or medic ation usage . For perso ns <18 years of age, a pedia tric GFR calcu lator is avail able on the [facility] websi te: https :[email or web address] [email or web address]/reece gloriaess ional s/kdo qi/gf r_cal culat or Not Available [facility] (Lab) [address] [place], [address], 01/28/2023 14:35:25 01/29/2001/28/2023 COMPR EHENS INES METAB OLIC PANEL alkaline phosphatase 68 U/L 38-126 Not Available [facility] (Lab) [address] [place], [address], 01/28/2023 14:35:25 01/29/2001/28/2023 COMPR EHENS INES METAB OLIC PANEL alanine aminotransfe rase 19 U/L 0-35 Not Available [facility] (Lab) [address] [place], [address], 01/28/2023 14:35:25 01/29/20 23 01/28/2023 COMPR EHENS INES METAB OLIC PANEL aspartate aminotransfe rase 28 U/L 15-37 Not Available [facility] (Lab) [address] [place], [address], 01/28/2023 14:35:25 01/29/20 23 01/28/2023 COMPR EHENS INES METAB OLIC PANEL bilirubin, total 0.50 mg/dL 0.20-1 .30 Not Available [facility] (Lab) [address] [place], [address], 01/28/2023 14:35:25 01/29/20 23 01/28/2023 COMPR EHENS INES METAB OLIC PANEL calcium 9.8 mg/dL 8.4-10 .2 Not Available [facility] (Lab) [address] [place], [address], 01/28/2023 14:35:25 01/29/20 23 01/28/2023 COMPR EHENS INES METAB OLIC PANEL total protein 8.3 g/dL 6.3-8. 2 high Not Available [facility] (Lab) [address] [place], [address], 01/28/2023 14:35:25 01/29/20 23 01/28/2023 COMPR EHENS INES METAB OLIC PANEL albumin 4.9 g/dL 3.4-5. 0 Not Available [facility] (Lab) [address] [place], [address], 01/28/2023 14:35:25 01/29/20 23 01/28/2023 COMPR EHENS INES METAB OLIC PANEL globulin 3.4 g/dL 2.6-4. 2 Not Available [facility] (Lab) [address] [place], [address], 01/28/2023 14:35:25 01/29/20 23 01/28/2023 COMPR EHENS INES METAB OLIC PANEL A/G ratio 1.4 ratio 1.0-2. 0 Not Available [facility] (Lab) [address] [place], [address], 01/28/2023 14:35:25 01/29/20 23 01/28/2023 VITAM IN D 25-HY DROXY [id number] 31.0 NG/mL 30-100 Vitam in D Statu s: Defic ient: <20 ng/mL Insuf ficie nt: 20-29 ng/mL Suffi cient : 30-10 0 ng/mL Not Available [facility] (Lab) [address] [place], [address], 01/28/2023 14:48:45 01/29/20 23 01/28/2023 T4 FREE free T4 1.26 NG/dL 0.78-2 .19 Not Available [facility] (Lab) [address] [place], [address], 01/28/2023 14:50:02 01/29/20 23 01/28/2023 T3 FREE free T3 3.0 pg/mL 2.77-5 .27 Not Available [facility] (Lab) [address] [place], [address], 01/28/2023 14:50:06 01/29/20 23 01/28/2023 TSH thyroid-stim ulating hormone 1.160 uIU/m L 0.465- 4.680 Not Available [facility] (Lab) [address] [place], [address], 01/28/2023 14:59:14 01/29/20 23 01/28/2023 KIEL TIN ferritin 48 NG/mL 6.24-1 37 Not Available [facility] (Lab) [address] [place], [address], 01/28/2023 15:10:05 01/29/20 23 01/28/2023 HEMOG LOBIN A1C HA1C 5.2 % 4.0-6. 0 Diabe hannah Walte elva Crite gary: <5.7% Consi stent with absen ce of diabe hannah 5.7-6 .4% Consi stent with incre ased risk for diabe hannah (pred iabet es) >OR=6 .5% Consi stent with diabe hannah REFER ENCE: Diabe hannah Care 2016, 39(Castillo ppl.1 ):s13 -s22 Not Available [facility] (Lab) [address] [place], [address], 01/28/2023 15:39:15 01/29/2001/28/2023 VITAM IN B12 (PENG LASHAWN ) vb12 514 pg/mL 239-93 1 Not Available [facility] (Lab) [address] [place], [address], 01/28/2023 17:09:31 01/29/2001/28/2023 FOLAT E, SERUM /PLAS MA folate 4.25 NG/mL 2.76-2 0.0 Not Available [facility] (Lab) [address] [place], [address], 01/28/2023 16:17:08 01/29/20 23 01/29/2023 THYRO ID PEROX IDASE (TPO) AB thyroid peroxidase (tpo) Ab 11 IU/mL 0-34 Perfo rmed at: [facility] n [address] [facility] [place] [address] Lab Direc tor: Misael stafford PhD, Phone : [phone] Not Available [facility] (Lab) [address] [place], [address], 01/29/2023 10:12:58 01/29/20 23 01/29/2023 INSUL IN insulin 4.3 uIU/m L 2.6-24 .9 Perfo rmed at: [facility] n [address] [address] Lab Direc tor: Misael stafford PhD, Phone : [phone] Not Available [facility] (Lab) [address] [place], [address], 01/29/2023 12:13:16 03/24/20 23 03/24/2023 CBC/C OMPLE TE BLD COUNT W/DIF F white blood cells 6.2 x10'3 /uL 4.2-10 .8 Not Available [facility] (Lab) [address] [place], [address], 03/24/2023 13:36:07 03/24/2003/24/2023 CBC/C OMPLE TE BLD COUNT W/DIF F red blood cells 4.72 x10'6 /uL 3.80-5 .20 Not Available [facility] (Lab) [address] [place], [address], 03/24/2023 13:36:07 03/24/20 23 03/24/2023 CBC/C OMPLE TE BLD COUNT W/DIF F hemoglobin 13.8 g/dL 12.0-1 5.6 Not Available [facility] (Lab) [address] [place], [address], 03/24/2023 13:36:07 03/24/20 23 03/24/2023 CBC/C OMPLE TE BLD COUNT W/DIF F hematocrit 43.6 % 35.7-4 5.7 Not Available [facility] (Lab) [address] [place], [address], 03/24/2023 13:36:07 03/24/2003/24/2023 CBC/C OMPLE TE BLD COUNT W/DIF F mean red cell volume 92.4 fL 82.0-9 9.0 Not Available [facility] (Lab) [address] [place], [address], 03/24/2023 13:36:07 03/24/20 23 03/24/2023 CBC/C OMPLE TE BLD COUNT W/DIF F mean red cell hemoglobin 29.2 pg 27.0-3 3.0 Not Available [facility] (Lab) [address] [place], [address], 03/24/2023 13:36:07 03/24/20 23 03/24/2023 CBC/C OMPLE TE BLD COUNT W/DIF F mean RBC HGB concentratio n 31.7 g/dL 31.0-3 6.0 Not Available [facility] (Lab) [address] [place], [address], 03/24/2023 13:36:07 03/24/20 23 03/24/2023 CBC/C OMPLE TE BLD COUNT W/DIF F red cell distribution width 12.7 % 11.8-1 5.5 Not Available [facility] (Lab) [address] [place], [address], 03/24/2023 13:36:07 03/24/20 23 03/24/2023 CBC/C OMPLE TE BLD COUNT W/DIF F platelets 304 x10'3 /uL 150-40 0 Not Available [facility] (Lab) [address] [place], [address], 03/24/2023 13:36:07 03/24/20 23 03/24/2023 CBC/C OMPLE TE BLD COUNT W/DIF F mean platelet volume 11.3 fL 9.0-12 .4 Not Available [facility] (Lab) [address] [facility] [place], [address], 03/24/2023 13:36:07 03/24/20 23 03/24/2023 CBC/C OMPLE TE BLD COUNT W/DIF F neutrophils 59.8 % 39.0-7 2.0 Not Available [facility] (Lab) [address] [place], [address], 03/24/2023 13:36:07 03/24/20 23 03/24/2023 CBC/C OMPLE TE BLD COUNT W/DIF F lymphocytes 29.1 % 16.0-4 7.0 Not Available [facility] (Lab) [address] [place], [address], 03/24/2023 13:36:07 03/24/20 23 03/24/2023 CBC/C OMPLE TE BLD COUNT W/DIF F monocytes 5.8 % 5.0-12 .0 Not Available [facility] (Lab) [address] [place], [address], 03/24/2023 13:36:07 03/24/20 23 03/24/2023 CBC/C OMPLE TE BLD COUNT W/DIF F eosinophils 4.0 % 1.0-7. 0 Not Available [facility] (Lab) [address] [place], [address], 03/24/2023 13:36:07 03/24/20 23 03/24/2023 CBC/C OMPLE TE BLD COUNT W/DIF F basophils 0.8 % 0.0-2. 0
--- OUTSIDE RECORDS SUMMARY | 2024-11-17 07:54 | XMS_ITS | Clinical Summary ---
Author Organization [facility] Address [address] [place] [address] Care Team Providers Care Daycare Manager Name Role Phone Francois Carlson MD Primary Care Provider [phone] Source Comments [facility],non-owned Affiliates and Associated Physician Practices is amultiple site organization consisting of ambulatory clinics and hospital sitesin [place], [place], [place] and [place]. This disclosure is being madepursuant to the Care Everywhere program and may not contain all information available regarding this patient. Last updated 18.[facility] [employer] Allergies Active Allergy Reactions Criticality Noted Date Comments Ibuprofen Other High 08/18/2023 Stomach burning and irritation Pimfaeno-Eiisjkikud-Qnyngc hanh Unknown Low 03/23/2024 Medications * Be aware that medications may not be up to date on this document. Alwaysverify current medications with the patient. albuterol HFA (Proventil; Ventolin; Proair) 108 (90 Base) MCG/ACT inhaler Inhale 2 (two) puffs by mouth as needed 3 Active cyclobenzaprine (Flexeril) 10 MG tablet Take 1 (one) tablet by mouth as needed 4 Active budesonide-form oterol (Symbicort) 80-4.5 MCG/ACT inhalerIndicati ons:Other cough Inhale 2 (two) puffs by mouth 2 times daily 10.2 g 11 4 Active famotidine (Pepcid) 20 MG tabletIndicatio ns:Hoarseness of voice Take 1 (one) tablet by mouth at bedtime 90 tablet 4 4 Active fluticasone propionate (Flonase) 50 MCG/ACT nasal sprayIndication s:Chronic rhinitis Scott 2 (two) sprays into each nostril once daily 16 g 11 4 Active mometasone (Elocon) 0.1 % ointment Apply to affected area on arms and fingers BID. 30 day supply. 45 g 4 Active Additional Information Patient taking differently: PRN, Apply to affected area on arms and fingers BID. 30 day supply., Reported on 04/06/2024 neomycin-polymy hanh-hc (Cortisporin) 3.5-51780-6 otic suspension Instill 4 (four) drops into both ears as directed 4 Active clotrimazole-be tamethasone (Lotrisone) 1-0.05 % cream Apply to affected area 2 times daily 15 g 4 Active triamcinolone acetonide (Kenalog) 0.1 % ointment Apply to affected area on feet BID. 30 day supply 80 g 4 Active fluocinonide (Lidex) 0.05 % solution Apply to itchy flaky areas in scalp 1-2 daily. 50 mL 4 Active clotrimazole (Lotrimin AF) 1 % cream Apply to affected area 2 times daily 15 g 4 Active betamethasone valerate (Valisone) 0.1 % cream Apply to affected area 2 times daily 15 g 4 Active valACYclovir (Valtrex) 1 GM tabletIndicatio ns:HSV (herpes simplex virus) infection Take 1 tab PO at first sign of outbreak, repeat in 12 hrs for total 2 doses 6 tablet 5 Active Active Problems Problem Noted Date Diagnosed Date Other allergic contact dermatitis 02/16/2024 Multiple benign nevi 02/16/2024 Folliculitis 02/16/2024 Encounters Date Type Department Care Team Description 09/02/2024 1:30 PM RETAIL SALESPERSON Office Visit [facility] - Cosmetic Dermatology [address] [place] [address] Makeda Bernardo MD HSV (herpes simplex virus) infection (Primary Dx); Other allergic contact dermatitis 09/02/2024 Travel from Last 3 Months Immunizations Immunization Administration Dates Next Due TDAP, HISTORIC VACCINE 05/29/2017 Family History Medical History Relation Name Comments Asthma Other Seizures Sister Arthritis - Osteo Neg Hx Arthritis - Rheumatoid Neg Hx CAD (Coronary Artery Disease) Neg Hx Cancer - Skin, Melanoma Neg Hx Cancer - Skin, Non Melanoma Neg Hx Hypertension Neg Hx Migraine Neg Hx Thyroid Disease Neg Hx Relation Name Status Comments Other Sister Social History Tobacco Use Types Packs/Day Years Used Date Smoking Tobacco: Never Passive Smoke Exposure: Never Smokeless Tobacco: Never Tobacco Cessation:Counseling Given: Not Answered Alcohol Use Standard Drinks/Week Comments Never 0 (1 standard drink = 0.6 oz pur e alcohol) PHQ-2 Answer Date Recorded Patient Health Questionnaire-2 Score 0 08/18/2023 Comments Unknown Sex and Gender Information Value Date Recorded Sex Assigned at Not on file Legal Sex Female 5:32 AM RETAIL SALESPERSON Gender Identity Not on file Sexual Orientation Not on file Last Filed Vital Signs Vital Sign Reading Time Taken Comments Blood Pressure 116/83 05/11/2024 10:54 AM CDT Pulse 90 05/11/2024 10:54 AM CDT Temperature 36.5 C (97.7 F) 02/19/2024 2:15 PM CDT Respiratory Rate 18 02/19/2024 2:15 PM CDT Oxygen Saturation 96% 02/19/2024 2:15 PM CDT Inhaled Oxygen Concentration - - Weight 83 kg (183 lb) 05/11/2024 10:54 AM CDT Height 157.5 cm (5' 2 ) 05/11/2024 10:54 AM CDT Body Mass Index 33.47 05/11/2024 10:54 AM CDT Plan of Treatment Health Maintenance Due Date Last Done Comments COLOGUARD (AGES 45-75) - COL ON CA SCREENING 1977 COLON MONITORING 1977 COLONOSCOPY - COLON CA SCREENING 1977 CT COLONOGRAPHY - COLON CA SCREENING 1977 Colorectal Cancer Screening 1977 FIT - COLON CA SCREENING 1977 FLEX SIG - COLON CA SCREENING 1977 LIPID TESTING 1977 MAMMOGRAM 1977 PAP SMEAR 1977 HIV SCREENING 1992 HEPATITIS C SCREENING 11/09/1995 HEPATITIS B VACCINE (1 of 3 - 19+ 3-dose series) 1996 SCREENING FOR DIABETES 08/18/2023 COVID-19 VACCINE (3 - 2023-2 5 season) 2024 07/30/2021, 06/24/2021 DEPRESSION SCREENING 07/14/2024 08/18/2023 INFLUENZA VACCINE (Season Ended) 2025 DTAP/TDAP/TD VACCINES (2 - T d or Tdap) 05/29/2027 05/29/2017 ZOSTER VACCINE (1 of 2) 11/14/2027 HIB VACCINE Aged Out No longer eligi ble based on patient's age to complete this topic HPV VACCINE Aged Out No longer eligi ble based on patient's age to complete this topic MENINGOCOCCAL (Group B) VACCINE SHARED DECISION-MAKING Aged Out No longer eligible based on patient's age to complete this topic MENINGOCOCCAL GROUPS A/C/Y/W VACCINE Aged Out No longer eligible b ased on patient's age to complete this topic PNEUMOCOCCAL VACCINE Aged Out No long er eligible based on patient's age to complete this topic Procedures Procedure Name Priority Date/Time Associated Diagnosis Comments HERPES SIMPLEX 1+2 PCR Routine 09/06/2024 1:00 AM RETAIL SALESPERSON HSV (herpes simplex virus) infection from Last 3 Months Results * (ABNORMAL) HERPES SIMPLEX 1+2 PCR (09/06/2024 1:00 AM RETAIL SALESPERSON) Source [facility] Herpes Simplex Virus 1 DNA Not Detected Not Detected [facility] Herpes Simplex Virus 2 DNA Detected(A) Not Detected [facility] Comment: (Note) This test was developed and its analytical performance characteristics have been determined by [employer]. It has not been cleared or approved by the U.S. Food and Drug Administration. This assay has been validated pursuant to the CLIA regulations and is used for clinical purposes. [facility] [address] [facility] [employer] [place] [address],[address] [facility] [address] Nina Russo MD, PhD NO COLLECTION DATE RECEIVED. WE HAVE USED THE DATE THE SPECIMEN WAS RECEIVED BY THIS LABORATORY THE COLLECTION DATE. IF THIS IS INCORRECT, PLEASE CONTACT CLIENT SERVICES. PHONE NUMBER: [phone] Test Performed at: [facility] [address] [address] [address] [place] [address] NINA RUSSO MD,PHD Microbiology SPECIMEN FROM GENITAL SYSTEM / Unknown 09/03/2024 4:13 AM RETAIL SALESPERSON Makeda Bernardo MD LAB - MICROBIOLOGY ORDERAB LES Final Result [facility] [id number] [place] [address] from Last 3 Months Insurance [facility] Care Teams Daycare Manager Relationship Specialty Start Date End Date Francois Carlson MD [address] [place] [address] [address] [place] [address] PCP - General Internal Medicine 08/18/23
[2024-12-02 13:47] VITALS: BMI 33.8
--- NOTE | 2024-12-02 13:47 | P.SLEEP_ITS ---
Sleep Study - Home Unattended Date of Study: 11/17/24 Ordering Provider: Homero Landaverde APRN Interpreting Provider: Martha Philippe DO Home Sleep Study Type: Watch PAT Height: 1.57 m Weight: 83.915 kg Body Mass Index: 33.8 Neck Circumference (inches): 14 [place]: 3 Reason for Sleep Study snoring, daytime hypersomnia Sleep History The patient is a 49-year-old female that had a sleep study ordered by the Pulmonary group for evaluation of sleep apnea. The patient admits to snoring loudly, excessive daytime sleepiness and trouble maintaining sleep. She denies interruptions in breathing while asleep. She denies choking or gasping at night. She denies having trouble breathing on her back. She does have morning headaches. She denies having a dry or sore mouth/ throat in the morning. She denies nocturnal heartburn. She denies nocturia. She denies having trouble falling asleep. She does have difficulty staying asleep. She denies having difficulty returning to sleep if she wakes up throughout the night. She denies any hypnotic or sedative use. She denies feeling anxious about sleep. She does feel tired or sleepy during the day. She does feel tired in the morning. She does have the urge to fall asleep during the day. She does feel drowsy while driving. She denies sleep paralysis, cataplexy and hypnagogic/ hypnopompic hallucinations. She does clench or grind her teeth. She denies kicking or jerking her legs excessively. She denies having a restless feeling in her legs. She goes to bed at 11:30 p.m. every night. It takes her 30 minutes to fall asleep. She gets 8 hours of sleep per night. Her sleep does not at all restorative on her days off. She denies taking any planned naps. She denies dream enactment behavior. She denies sleep walking. She denies consuming any caffeinated beverages throughout the day. She denies tobacco and alcohol use. She denies exercising on a regular basis. FORMERLY [facility] Past Medical History Medical History COVID-19 Difficulty swallowing Persistent cough Trigger finger (~2011) Itching Hives Chills Bronchitis Pneumonia Miscarriage Chicken pox Surgical History Surgical History History of tubal ligation (~1998) History of endometrial ablation (~2017) Family History Family History Father No known problems Mother No known problems Sibling Suicide Social History Social History Social History: Patient drinks caffeine twice weekly. Smoking status: Never smoker Second hand tobacco smoke exposure: No Alcohol intake: current Alcohol use details: Patient drinks 2 to 3 glasses of alcohol per month Substance use: never Substance use type: does not use Lack of Transportation: No Lack of Food: Never True Current Housing: I Have Housing Concerned About Future Housing: No Difficulty Paying Gas/Electric Bills: No Difficulty Paying for Meds: No Currently Unemployed: Decline to Answer Education: Associate Degree Difficulty w/ Childcare or Family Care: No Living arrangements: alone Additional living arrangements comments: Patient is Occupation/Education: occupation 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 Medications Home Medications Medication Instructions Recorded Confirmed Type albuterol sulfate 90 mcg/actuation 1 puff inhalation Q4H PRN Allergic 12/18/23 10/27/24 History aerosol inhaler Symptoms budesonide-formoterol HFA 80 1 inh inhalation TID PRN Allergic 12/18/23 10/27/24 History mcg-4.5 mcg/actuation aerosol Symptoms inhaler cyclobenzaprine 10 mg tablet 10 mg PO TID PRN Muscle Spasm 12/18/23 10/27/24 History famotidine 20 mg tablet 20 mg PO DAILY PRN Allergic 12/18/23 10/27/24 History Symptoms fluticasone furoate 50 1 inh inhalation DAILY PRN 12/18/23 10/27/24 History mcg/actuation blister powder for Allergic Reaction inhalation [id number] 3.5 4 drp RIGHT EAR Q8H 7 days #10 mL 03/10/24 10/27/24 Rx mg-10,000 unit/mL-1 % ear drops,susp cetirizine 10 mg tablet (Zyrtec) 10 mg PO DAILY PRN 06/22/24 10/27/24 History cholecalciferol (vitamin D3) 50 50 mcg PO DAILY #180 caps 06/22/24 10/27/24 Rx mcg (2,000 unit) capsule mecobalamin (vitamin B12) 2,500 2,500 mcg PO DAILY #90 tabs 06/22/24 10/27/24 Rx mcg chewable tablet lidocaine 5 % topical ointment 1 applic topical Q4-6H PRN pain 09/01/24 10/27/24 Rx #30 grams valacyclovir 1 gram tablet 1,000 mg PO TID 7 days #21 tabs 09/01/24 10/27/24 Rx ondansetron 4 mg disintegrating 4 mg PO Q6H PRN nausea and 09/17/24 10/27/24 Rx tablet vomiting #30 tabs tirzepatide (weight loss) 5 mg/0.5 5 mg (0.5 mL) subcut WEEKLY #2 mL 10/01/24 10/27/24 Rx mL subcutaneous solution (Zepbound) Sleep Procedure The sleep study was completed using VesselPAT a technically adequate device with seven channels: peripheral arterial tone, actigraphy, body position, snore, respiratory movement, pulse oximetry, sleep staging, and heart rate. Prior to using the device, the patient received verbal and written instructions for its application and was provided with the help desk phone number for additional telephonic instruction with 24-hour availability of qualified personnel to answer questions. The study was scored using CMS guidelines. Sleep Architecture The total recording time is 9 hrs, 59 min. The total sleep time is 8 hrs, 0 min. Sleep latency is 29 minutes. REM latency is 154 minutes. The patient had 15 episodes of waking. Sleep architecture shows 14.0% deep sleep, 62.5% light sleep, and (as % Total Sleep Time) showed NREM (Light 62.5%; Deep 14.0%), and a 23.5% stage REM. The patient spent 28.2% of total sleep time in the supine position. Sleep efficiency was 80.13. Respiratory Analysis The overall AHI (pAHI 4%:) is 9.3. The overall AHI (pAHI 3%:) is 20.6. The central AHI is 2.0. The AHI was 19.7 in NREM and 24.1 in REM sleep. The AHI was 32.2 in Supine and 16.1 in Non-supine sleep. Percent of Rafa Gomez respirations is 0.0. Oximetry Data The oxygen desaturation index (CACHORRO 4%:) is 9.3. The mean saturation is 95%, and the lowest saturation is 87%. Time spent with saturation < 88% is 0.4 minutes. Snoring Profile Snoring average intensity is 41 dB. The patient snored above 45 decibels for 43.6 minutes, 9.1% of sleep time. Cardiac Profile The average pulse rate is 72 beats per minutes. The lowest pulse rate is 59 bpm. The highest pulse rate reported is 106 bpm. Atrial fibrillation was not detected. Premature beats occur <0.1 per minute. Assessment and Plan Assessment and Plan (1) VALENTIN (obstructive sleep apnea): Code(s): G47.33 - Obstructive sleep apnea (adult) (pediatric) Status: Acute Assessment and Plan: The patient had an overall AHI of 9.3 with desaturation down to 87%. This is consistent with mild sleep apnea. Due to the patient's sleep maintenance insomnia, she qualifies for treatment. I recommend that the patient be prescribed AutoPAP 5-15 cm H2O, CPAP mask/filters/tubing and heated humidity. A mandibular advancement device is also an acceptable treatment option. This should be used with all episodes of sleep. Compliance should be reviewed within 31-90 days of starting therapy for usage greater than 4 hours per night greater than 70% of the nights. The patient should be asked about symptoms such as excessive daytime sleepiness, quality of sleep, decreased nocturia, increased mental functioning such as memory, mood, and concentration. Data The data obtained during this sleep study is adequate for interpretation. Certification This sleep study has been reviewed by a board certified sleep medicine physician.
== END 2024-11-18 11:35 | disposition home or self-care (01) ==
LOC: ANHCSM 07:49
PROVIDERS: PCP Emergency Medicine; Visit Provider Nurse Practitioner Family
DX: R06.83 Snoring (principal); G47.33 Obstructive sleep apnea (adult) (pediatric)
CPT/HCPCS: 95800

== ENCOUNTER 2024-11-17 09:40 | Outpatient (CLI) | payer OTHER, SELFPAY ==
--- OUTSIDE RECORDS SUMMARY | 2024-11-17 10:15 | XMS_ITS | Clinical Summary ---
Author Organization [employer] [address] Address [address] [place] [id number] Care Team Providers Care Paper Cone Grader Name Role Phone Mauricio Hernandez MD Primary Care Provider Allergies Active Allergy Reactions Criticality Noted Date Comments Ibuprofen Other (See Comments) High 08/18/2023 Stomach burning and irritation Rghqsuac-Onpxpxbesq-U olymyxin Unknown Low 03/23/2024 Medications albuterol sulfate [...] 4 Active fluticasone propionate (FLONASE) 50 mcg/spray [place], Suspension nasal inhaler Administer 2 Sprays in [...] Abstract 11/08/2024 9:40 AM CDT Office Visit [facility] Internal Medicine - [address] [address] Mauricio Hernandez MD Encounter for [...] on file Legal Sex Female 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
--- OUTSIDE RECORDS SUMMARY | 2024-11-17 10:15 | XMS_ITS | Encounter Summary ---
Author Organization [facility] Address [address] [facility] [place] [address] Care Team Providers Care Farmhand Name Role Phone Francois Carlson MD Primary Care Provider [phone] Encounter Details Date Type Department Care Team (Late st Contact Info) Description 09/18/2023 Telephone [facility] - Allergy [address] [facility] [place] [phone] Mere Pond MD [address] [place] [address] Social History Tobacco Use Types Packs/Day Years Used Date Smoking Tobacco: Never Smokeless Tobacco: Never PHQ-2 Answer Date Recorded Patient Health Questionnaire-2 Score 0 08/18/2023 Comments Unknown Sex and Gender Information Value Date Recorded Sex Assigned at Not on file Legal Sex Female 5:32 AM CUSHION INSTALLER Gender Identity Not on file Sexual Orientation [...] Mere Pond MD Allergy & Immunology Fellow ION INSTALLER documented in this encounter Plan of Treatment Not on file documented as of this encounter Visit Diagnoses Not on filedocumented in this encounter Care Teams Farmhand Relationship Specialty Start Date End Date Francois Carlson MD [address] [address] PCP - General Internal Medicine 08/18/23 documented as of this encounter
--- OUTSIDE RECORDS SUMMARY | 2024-11-17 10:15 | XMS_ITS | Clinical Summary ---
Author Organization [facility] Address [address] [facility] [place] [address] Care Team Providers Care Brake Rider Name Role Phone Francois Carlson MD Primary Care Provider [phone] Source Comments [facility],non-owned Affiliates and Associated Physician Practices is amultiple site organization consisting of ambulatory clinics and hospital sitesin [place], [place], [place] and [place]. This disclosure is being madepursuant to the Care Everywhere program and may not contain all information available regarding this patient. Last updated 18.[facility] [employer] Allergies Active Allergy Reactions Criticality Noted Date Comments Ibuprofen Other High 08/18/2023 Stomach burning and irritation Jtypziub-Fjnlmgxvlt-Lybrwa hanh Unknown Low 03/23/2024 Medications * Be [...] (Flonase) 50 MCG/ACT nasal sprayIndication s:Chronic rhinitis [place] 2 (two) sprays into each nostril once daily 16 g 11 4 Active mometasone (Elocon) 0.1 % ointment Apply to affected area on arms and fingers BID. 30 day supply. 45 g 4 Active Additional Information Patient taking differently: PRN, Apply to affected area on arms and fingers BID. 30 day supply., Reported on 04/06/2024 neomycin-polymy hanh-hc (Cortisporin) 3.5-49663-5 otic suspension Instill 4 (four) drops into [...] Department Care Team Description 09/02/2024 1:30 PM RN DISCHARGE Office Visit [facility] - Cosmetic Dermatology [address] [place] [address] Makeda Bernardo MD HSV (herpes [...] on file Legal Sex Female 5:32 AM RN DISCHARGE Gender Identity Not on file Sexual Orientation [...] SIMPLEX 1+2 PCR Routine 09/06/2024 1:00 AM RN DISCHARGE HSV (herpes simplex virus) infection from Last 3 Months Results * (ABNORMAL) HERPES SIMPLEX 1+2 PCR (09/06/2024 1:00 AM RN DISCHARGE) Source [facility] Herpes Simplex Virus 1 DNA Not Detected Not Detected [facility] Herpes Simplex Virus 2 DNA Detected(A) Not Detected [facility] Comment: (Note) This test was developed and its analytical performance characteristics have been determined by [employer]. It has not been cleared or approved by the U.S. Food and Drug Administration. This assay has been validated pursuant to the CLIA regulations and is used for clinical purposes. [facility] [address] [facility] [place] [address],[address] [facility] [address] Nina Russo MD, PhD NO COLLECTION DATE RECEIVED. WE HAVE USED THE DATE THE SPECIMEN WAS RECEIVED BY THIS LABORATORY THE COLLECTION DATE. IF THIS IS INCORRECT, PLEASE CONTACT CLIENT SERVICES. PHONE NUMBER: [phone] Test Performed at: [facility] [address] [address] [address] [place] [address] NINA RUSSO MD,PHD Microbiology SPECIMEN FROM GENITAL SYSTEM / Unknown 09/03/2024 4:13 AM RN DISCHARGE Makeda Bernardo MD LAB - MICROBIOLOGY ORDERAB LES Final Result [facility] [id number] [place] [address] from Last 3 Months Insurance [facility] Care Teams Brake Rider Relationship Specialty Start Date End Date Francois Carlson MD [address] [place] [address] [address] [place] [address] PCP - General Internal Medicine 08/18/23
--- OUTSIDE RECORDS SUMMARY | 2024-11-17 10:15 | XMS_ITS | Continuity of Care Document ---
Author Name [facility] Organization [facility] Care Team Providers Care Transverse Abdominal Muscle Surgeon Name Role Phone [facility] Unavailable Unavailable Social History Combined list of available smoking, tobacco, and other social history from Department of Defense and Veterans Affairs facilities. Social History Type Response Date Comment Sourc e This section is an empty social history section. [facility]
--- OUTSIDE RECORDS SUMMARY | 2024-11-17 10:15 | XMS_ITS | Encounter Summary ---
Author Organization [facility] Address [address] [place] [address] Care Team Providers Care Food Technologist Name Role Phone Francois Carlson MD Primary Care Provider [phone] Reason for Visit * Reason Onset Date Comments Future Appointment 02/13/2024 Encounter Details Date Type Department Care Team (Late st Contact Info) Description 02/13/2024 Telephone [facility] - Centralized Scheduling [address] [place] [phone] Dionte Paez MD [address] OF [place]ERGY[place] [address] Future Appointment Social History Tobacco Use Types [...] on file Legal Sex Female 5:32 AM 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
--- NOTE | 2024-11-17 13:35 | WPDPFTINT ---
PFT Procedure Performed PFT Procedure Performed Spirometry with Pre/Post Bronchodilator Plethysmography (Lung Vol) Diffusing Cap (DLCO) Flow Vol Loop PFT Interpretation This is a pulmonary function test with pre and post-bronchodilator spirometry, plethysmography and diffusing capacity. The test was performed and results interpreted in accordance with the 2019 and 2005 ATS/ERS Task Force guidelines respectively using the Global Lung Function Initiative-2012 reference equations. Patient demonstrated good effort and cooperation. Reproducibility criteria were met. The quality of the pre bronchodilator spirometry maneuver was Grade A and post bronchodilator spirometry maneuver was Grade A. Findings: Spirometry: the contour the inspiratory and expiratory flow tracing are normal. The pre bronchodilator FVC is 3.25 L, 100% predicted. The pre bronchodilator FEV1 is 2.68 L, 102% predicted. The pre bronchodilator FEV1: FVC ratio is 82%. The post bronchodilator FVC is 3.30 L, representing a 2% increase. The post bronchodilator FEV1 is 2.80 L, representing a 4% increase. The post bronchodilator FEV1: FVC ratio is 85%. Plethysmography: The total lung capacity is 4.99 L, 105% predicted. The functional residual capacity is 2.00 L, 76% predicted. The residual volume is 1.73 L, 107% predicted. Diffusing capacity: The diffusing capacity unadjusted for hemoglobin and carboxyhemoglobin is 21.4, 96% predicted. The diffusing capacity adjusted for alveolar volume is 5.10, 108% predicted. Impression: The spirometry is normal without evidence of an obstructive abnormality. There is no significant improvement after inhaling a single dose of albuterol. The lung volumes are normal. The diffusing capacity is normal. There are no prior studies for comparison
== END 2024-11-17 09:41 | disposition home or self-care (01) ==
LOC: ANHPFT 09:41
PROVIDERS: PCP Emergency Medicine; Visit Provider Nurse Practitioner Family
DX: J98.4 Other disorders of lung (principal)
CPT/HCPCS: 94060; 94726; 94729

== ENCOUNTER 2024-12-29 10:00 | Outpatient (CLI) | payer OTHER, SELFPAY ==
--- OUTSIDE RECORDS SUMMARY | 2024-12-29 07:53 | XMS_ITS | Data Portability ---
Author Organization [facility] Address [address] [place] [address] Assessment No assessment recorded. Plan of Treatment Reminders Order Date Submit Date Provider Last Modified By Organization Details Last Modified Time Details Appointments None recorded. Lab estradiol , serum 2020 PAT [facility], [address] [place] [address], [address], [place], [address], 18:07:20 prolactin , serum 2020 021 PAT [facility], [address] [place] [address], [address], [place], [address], 18:07:20 lh + FSH, serum 2020 021 [...] Go To The Location Of Their Choice, [id number] 18:42:19 lipid panel, serum 2020 021 [email or web address] [facility] (Centralized Electronic Ordering - All Locations), Patient Can Go To The Location Of Their Choice, [id number] 16:28:36 TSH, ultra-sen sitive, serum 2020 [facility], [address] [facility], [place], [address], 18:42:20 ferritin, serum or plasma 2020 [facility], [address] [place] [address], [address], [place], [address], 18:42:19 iron + total iron-bind ing capacity (TIBC), serum 2020 021 [facility], [address] [place] [address], [address], [place], [address], 18:42:19 CBC w/ auto diff 2020 [facility], [address] [place] [address], [address], [place], [address], 18:42:20 pap, IG + HPV, cervical 2019 020 [facility], [address] [place] [address], [address], [place], [address], 0 09:10:40 urinalysi s, dipstick 2019 020 [email or web address] In-Office Order, Internal Use Only DO Not Attach Compendium DO Not Attach Compendium, Do Not Delete/merge, [id number] 0 10:50:45 test, urine 2019 020 [email or web address] In-Office Order, Internal Use Only DO Not Attach Compendium DO Not Attach Compendium, Do Not Delete/merge, [id number] 0 10:50:45 CBC w/ auto diff 2019 020 PAT [facility], [address], [address], [place], [address], 0 06:25:04 ferritin, serum or plasma 2019 020 [email or web address] [facility], [address] [facility], [address], [place], [address], 0 12:16:32 iron + total iron-bind ing capacity (TIBC), serum 2019 020 tellisonrn [facility], [address] [place] [address], [address], [place], [address], 0 12:16:32 bacterial vaginosis panel, vaginal 2019 020 PAT [facility] (Centralized Electronic Ordering - All Locations), Patient Can Go To The Location Of Their Choice, [facility] 0 06:04:54 culture, vaginal/r ectal, streptoco ccus group B 2019 020 PAT [facility] (Centralized Electronic Ordering - All Locations), Patient Can Go To The Location Of Their Choice, [facility] 0 06:04:55 lipid panel, serum 2019 020 PAT [facility], [address] [facility], [address], [place], [address], 0 06:25:05 CMP, serum or plasma 2019 020 PAT [facility], [address] [facility], [address], [place], [address], 0 06:25:05 prolactin , serum 2018 019 [facility], [address], [address], [place], [address], 9 10:10:36 lh + FSH, serum 2018 019 [facility], [address], [address], [place], [address], 9 10:10:35 estradiol , serum 2018 019 [facility], [address], [address], [place], [address], 9 10:10:37 progester one, serum 2018 019 PAT [facility], [address], [address], [place], [address], 9 10:10:38 CMP, serum or plasma 2018 019 [facility], [address], [address], [place], [address], 9 10:10:33 CBC w/ auto diff 2018 019 [facility], [address], [address], [place], [address], 9 10:10:33 lipid panel, serum 2018 019 [facility], [address], [address], [place], [address], 9 10:10:34 HbA1c (hemoglob in A1c), blood 2018 019 [facility], [address], [address], [place], [address], 9 10:10:35 vitamin D, 25-hydrox y, total, serum 2018 019 PAT [facility], [address] [facility], [address], [place], [address], 9 10:10:37 TSH, ultra-sen sitive, serum 2018 019 PAT [facility], [address] [facility], [address], [place], [address], 9 10:10:38 Referral urologist referral - Patinet to call and schedule appt. 2019 020 [email or web address] Not available 0 10:59:57 plastic surgeon referral - Patient to call and schedule appointme nt. 2019 020 [email or web address] [facility], [address] [facility], [place], [address], 0 10:43:06 [email or web address] logist referral - Cystocele . Patient wants surgery 2018 019 [email or web address] Not available 0 15:20:54 Procedures None recorded. Surgeries hysterosc opy, with endometri al ablation (SURG) 2019 020 [facility], [address] [place], [address], 0 01:26:01 Imaging US, pelvis, transabdo kenna + transvagi nal 2020 021 [facility], [address] [facility] [address], [place], [address], 1 16:24:34 MAMMO, screening , bilateral 2019 020 [facility] ([facility] Sched[facility]), [address] [place], [address], 0 13:16:06 US, breast, bilateral 2018 019 [facility] ([facility] Call Sched[facility]), [address] [facility] [place], [address], 0 10:47:59 Medication Orders ibuprofen 800 mg tablet 2020 021 [id number], [address], [place], [address], 1 13:06:48 simvastat in 20 mg tablet 2019 020 [email or web address] Not available 0 15:09:05 multivita min tablet 2019 020 [email or web address] Not available 0 15:09:09 Calcium with Vitamin D 600 mg-10 mcg (400 unit) tablet 2019 020 [email or web address] Not available 0 15:09:07 Patient TargetsNo targets recorded. Patient Instructions Encounter Date Encounter Id Patient Instructions Last Modified By Organization Details Last Modified Time 06/03/2019 [id number] breast pain: care instructions [email or web address] Not available 06/03/2019 12:15:41 08/04/2019 [id number] mammogram: about this test [email or web address] Not available 08/04/2019 10:50:46 bladder training: care instructions mwasserman Not available 08/04/2019 11:13:17 kegel exercises: care instructions mwasserman Not available 08/04/2019 11:13:18 Stress Incontinence: Care Instructions mwasserman Not available 08/04/2019 11:13:18 high cholesterol: care instructions mwasserman Not available 08/04/2019 10:50:46 When You Want to Lose Weight: Care Instructions mwasserman Not available 08/04/2019 11:44:56 08/09/2020 [id number] progesterone mwasserman Not available 0 08/09/2020 13:06:45 heavy menstrual periods: care instructions mwasserman Not available 08/09/2020 13:09:00 anemia: care instructions mwasserman Not available 08/09/2020 13:02:24 Reason for Referral Urogynecologist Referral for Cystocele Cystocele. Patient wants surgery Referring Physician: Belkys Real, Therapy Assistant, Encounter Date: 06/03/2019 Urologist Referral for Femal e stress incontinence Patinet to call and schedule appt. Referring Physician: Dionte Davenport, PATIENT SERVICES MANAGER, Encounter Date: 08/04/2019 Plastic Surgeon Referral for Macromastia Chronic back pain Patient to call and schedule appointment. Referring Physician: Dionte Davenport PATIENT SERVICES MANAGER, Encounter Date: 08/04/2019 Results Created Date Observation Date Name Description Value Unit Range Abnormal Flag Note LastModifiedBy Organization Detail LastModifiedTime 08/04/1908/04/2019 urina lysis , dipst ick Leukocytes Trace Not Available In-Offi ce Order Internal Use Only DO Not Attach Compendium DO Not Attach Compendium, Do Not Delete/merge, 08/04/2019 10:42:15 08/04/1908/04/2019 urina lysis , dipst ick Nitrite negati ve Not Available In-Office Order Internal Use Only DO Not Attach Compendium DO Not Attach Compendium, Do Not Delete/merge, 08/04/2019 10:42:15 08/04/1908/04/2019 urina lysis , dipst ick Urobilinogen .2 Not Available In-Of fice Order Internal Use Only DO Not Attach Compendium DO Not Attach Compendium, Do Not Delete/merge, 08/04/2019 10:42:15 08/04/1908/04/2019 urina lysis , dipst ick Protein Negati [...] DO Not Attach Compendium, Do Not Delete/merge, [id number] 08/04/2019 10:42:15 08/04/19 20 08/04/2019 urina lysis , dipst ick Specific [place] 1.025 Not Available In-Off ice Order Internal Use Only DO Not Attach Compendium DO Not Attach Compendium, Do Not Delete/merge, [facility] 08/04/2019 10:42:15 08/04/19 20 08/04/2019 urina lysis , dipst ick Ketone Negati ve Not Available In-Office Order Internal Use Only DO Not Attach Compendium DO Not Attach Compendium, Do Not Delete/merge, [facility] 08/04/2019 10:42:15 08/04/19 20 08/04/2019 urina lysis , dipst ick Bilirubin Negati ve Not Available In-Office Order Internal Use Only DO Not Attach Compendium DO Not Attach Compendium, Do Not Delete/merge, [facility] 08/04/2019 10:42:15 08/04/19 20 08/04/2019 urina lysis , dipst ick Glucose Negati ve Not Available In-Office Order Internal Use Only DO Not Attach Compendium DO Not Attach Compendium, Do Not Delete/merge, [facility] 08/04/2019 10:42:15 06/03/20 19 06/04/2019 CBC w/ auto diff WBC 9.8 x10e3 /uL 3.4-10 .8 Not Available [facility] ([facility]) [address] [facility], [place], [address], 06/04/2019 10:10:33 06/03/20 19 06/04/2019 CBC w/ auto diff RBC 4.94 x10e6 /uL 3.77-5 .28 Not Available [facility] ([facility]) [address] [facility], [place], [address], 06/04/2019 10:10:33 06/03/20 19 06/04/2019 CBC w/ auto diff hemoglobin 13.8 g/dL 11.1-1 5.9 Not Available [facility] ([facility]) [address] [facility], [place], [address], 06/04/2019 10:10:33 06/03/20 19 06/04/2019 CBC w/ auto diff hematocrit 42.6 % 34.0-4 6.6 Not Available [facility] ([facility]) [address] [facility], [place], [address], 06/04/2019 10:10:33 06/03/20 19 06/04/2019 CBC w/ auto diff MCV 86 fL 79-97 Not Available [facility] ([facility]) [address] [facility], [place], [address], 06/04/2019 10:10:33 06/03/20 19 06/04/2019 CBC w/ auto diff MCH 27.9 pg 26.6-3 3.0 Not Available [facility] ([facility]) [address] [facility], [place], [address], 06/04/2019 10:10:33 06/03/20 19 06/04/2019 CBC w/ auto diff MCHC 32.4 g/dL 31.5-3 5.7 Not Available [facility] ([facility]) [address] [facility], [place], [address], 06/04/2019 10:10:33 06/03/20 19 06/04/2019 CBC w/ auto diff RDW 14.2 % 12.3-1 5.4 Not Available [facility] ([facility]) [address] [place], [address], 06/04/2019 10:10:33 06/03/20 19 06/04/2019 CBC w/ auto diff platelets 382 x10e3 /uL 150-45 0 Not Available [facility] ([facility]) [address] [place], [address], 06/04/2019 10:10:33 06/03/20 19 06/04/2019 CBC w/ auto diff neutrophils 71 % not estab. Not Available [facility] ([facility]) [address] [facility], [place], [address], 06/04/2019 10:10:33 06/03/20 19 06/04/2019 CBC w/ auto diff lymphs 19 % not estab. Not Available [facility] ([facility]) [address] [facility], [place], [address], 06/04/2019 10:10:33 06/03/20 19 06/04/2019 CBC w/ auto diff monocytes 7 % not estab. Not Available [facility] ([facility]) [address] [place], [address], 06/04/2019 10:10:33 06/03/20 19 06/04/2019 CBC w/ auto diff eos 3 % not estab. Not Available [facility] ([facility]) [address] [facility], [place], [address], 06/04/2019 10:10:33 06/03/20 19 06/04/2019 CBC w/ auto diff basos 0 % not estab. Not Available [facility] ([facility]) [address] [facility], [place], [address], 06/04/2019 10:10:33 06/03/20 19 06/04/2019 CBC w/ auto diff immature cells IT PROJECT LEAD Not Available [facility] ([facility]) [address] [facility], [place], [address], 06/04/2019 10:10:33 06/03/20 19 06/04/2019 CBC w/ auto diff neutrophils (absolute) 6.9 x10e3 /uL 1.4-7. 0 Not Available [facility] ([facility]) [address] [place], [address], 06/04/2019 10:10:33 06/03/20 19 06/04/2019 CBC w/ auto diff lymphs (absolute) 1.9 x10e3 /uL 0.7-3. 1 Not Available [facility] ([facility]) [address] [facility], [place], [address], 06/04/2019 10:10:33 06/03/20 19 06/04/2019 CBC w/ auto diff monocytes(ab solute) 0.7 x10e3 /uL 0.1-0. 9 Not Available [facility] ([facility]) [address] [facility], [place], [address], 06/04/2019 10:10:33 06/03/20 19 06/04/2019 CBC w/ auto diff eos (absolute) 0.3 x10e3 /uL 0.0-0. 4 Not Available [facility] ([facility]) [address] [facility], [place], [address], 06/04/2019 10:10:33 06/03/20 19 06/04/2019 CBC w/ auto diff baso (absolute) 0.0 x10e3 /uL 0.0-0. 2 Not Available [facility] ([facility]) [address] [facility], [place], [address], 06/04/2019 10:10:33 06/03/20 19 06/04/2019 CBC w/ auto diff immature granulocytes 0 % not estab. Not Available [facility] ([facility]) [address] [facility], [place], [address], 06/04/2019 10:10:33 06/03/20 19 06/04/2019 CBC w/ auto diff immature grans (abs) 0.0 x10e3 /uL 0.0-0. 1 Not Available [facility] ([facility]) [address] [place], [address], 06/04/2019 10:10:33 06/03/20 19 06/04/2019 CBC w/ auto diff NRBC IT PROJECT LEAD Not Available [facility] ([facility]) [address] [place], [address], 06/04/2019 10:10:33 06/03/20 19 06/04/2019 CBC w/ auto diff hematology comments: IT PROJECT LEAD Not Available [facility] ([facility]) [address] [place], [address], 06/04/2019 10:10:33 06/03/20 19 06/04/2019 CMP, serum or plasm a glucose 81 mg/dL 65-99 Not Available [facility] ([facility]) [address] [place], [address], 06/04/2019 10:10:33 06/03/20 19 06/04/2019 CMP, serum or plasm a BUN 11 mg/dL 6-24 Not Available [facility] ([facility]) [address] [place], [address], 06/04/2019 10:10:33 06/03/20 19 06/04/2019 CMP, serum or plasm a creatinine 0.76 mg/dL 0.57-1 .00 Not Available [facility] ([facility]) [address] [place], [address], 06/04/2019 10:10:33 06/03/20 19 06/04/2019 CMP, serum or plasm a eGFR if nonafricn AM 98 mL/mi n/1.7 3 >59 Not Available [facility] ([facility]) [address] [place], [address], 06/04/2019 10:10:33 06/03/20 19 06/04/2019 CMP, serum or plasm a eGFR if africn AM 113 mL/mi n/1.7 3 >59 Not Available [facility] ([facility]) [address] [place], [address], 06/04/2019 10:10:33 06/03/20 19 06/04/2019 CMP, serum or plasm a BUN/creatini ne ratio 14 9-23 Not Available [facility] ([facility]) [address] [place], [address], 06/04/2019 10:10:33 06/03/20 19 06/04/2019 CMP, serum or plasm a sodium 140 mmol/ L 134-14 4 Not Available [facility] ([facility]) [address] [place], [address], 06/04/2019 10:10:33 06/03/20 19 06/04/2019 CMP, serum or plasm a potassium 4.4 mmol/ L 3.5-5. 2 Not Available [facility] ([facility]) [address] [place], [address], 06/04/2019 10:10:33 06/03/20 19 06/04/2019 CMP, serum or plasm a chloride 102 mmol/ L 96-106 Not Available [facility] ([facility]) [address] [place], [address], 06/04/2019 10:10:33 06/03/20 19 06/04/2019 CMP, serum or plasm a carbon dioxide, total 22 mmol/ L 20-29 Not Available [facility] ([facility]) [address] [place], [address], 06/04/2019 10:10:33 06/03/20 19 06/04/2019 CMP, serum or plasm a calcium 9.2 mg/dL 8.7-10 .2 Not Available [facility] ([facility]) [address] [place], [address], 06/04/2019 10:10:33 06/03/20 19 06/04/2019 CMP, serum or plasm a protein, total 7.4 g/dL 6.0-8. 5 Not Available [facility] ([facility]) [address] [place], [address], 06/04/2019 10:10:33 06/03/20 19 06/04/2019 CMP, serum or plasm a albumin 4.3 g/dL 3.5-5. 5 Not Available [facility] ([facility]) [address] [place], [address], 06/04/2019 10:10:33 06/03/2006/04/2019 CMP, serum or plasm a globulin, total 3.1 g/dL 1.5-4. 5 Not Available [facility] ([facility]) [address] [place], [address], 06/04/2019 10:10:33 06/03/2006/04/2019 CMP, serum or plasm a A/G ratio 1.4 1.2-2. 2 Not Available [facility] ([facility]) [address] [place], [address], 06/04/2019 10:10:33 06/03/2006/04/2019 CMP, serum or plasm a bilirubin, total 0.3 mg/dL 0.0-1. 2 Not Available [facility] ([facility]) [address] [place], [address], 06/04/2019 10:10:33 06/03/2006/04/2019 CMP, serum or plasm a alkaline phosphatase 71 IU/L 39-117 Not Available [facility] ([facility]) [address] [place], [address], 06/04/2019 10:10:33 06/03/2006/04/2019 CMP, serum or plasm a AST (SGOT) 19 IU/L 0-40 Not Available [facility] ([facility]) [address] [place], [address], 06/04/2019 10:10:33 06/03/2006/04/2019 CMP, serum or plasm a ALT (SGPT) 16 IU/L 0-32 Not Available [facility] ([facility]) [address] [place], [address], 06/04/2019 10:10:33 06/03/20 19 06/04/2019 lipid panel , serum cholesterol, total 271 mg/dL 100-19 9 above high normal Not Available [facility] ([facility]) [address] [facility], [place], [address], 06/04/2019 10:10:34 06/03/20 19 06/04/2019 lipid panel , serum triglyceride s 164 mg/dL 0-149 above high normal Not Available [facility] ([facility]) [address] [facility], [place], [address], 06/04/2019 10:10:34 06/03/20 19 06/04/2019 lipid panel , serum HDL cholesterol 62 mg/dL >39 Not Available [facility]) [address] [facility], [place], [address], 06/04/2019 10:10:34 06/03/20 19 06/04/2019 lipid panel , serum VLDL cholesterol samy 33 mg/dL 5-40 Not Available [facility] ([facility]) [address] [facility], [place], [address], 06/04/2019 10:10:34 06/03/20 19 06/04/2019 lipid panel , serum LDL cholesterol calc 176 mg/dL 0-99 above high normal Not Available [facility] ([facility]) [address] [facility], [place], [address], 06/04/2019 10:10:34 06/03/20 19 06/04/2019 lipid panel , serum comment: IT PROJECT LEAD Not Available [facility] ([facility]) [address] [facility], [place], [address], 06/04/2019 10:10:34 06/03/20 19 06/04/2019 lh + FSH, serum LH 4.3 mIU/m L Adult Femal e: Folli cular phase 2.4 - 12.6 Ovula tion phase 14.0 - 95.6 Lutea l phase 1.0 - 11.4 Postm enopa usal 7.7 - 58.5 Not Available [facility] ([facility]) [address] [place], [address], 06/04/2019 10:10:35 06/03/20 19 06/04/2019 lh + FSH, serum FSH 19.9 mIU/m L Adult Femal e: Folli cular phase 3.5 - 12.5 Ovula tion phase 4.7 - 21.5 Lutea l phase 1.7 - 7.7 Postm enopa usal 25.8 - 134.8 Not Available [facility] ([facility]) [address] [place], [address], 06/04/2019 10:10:35 06/03/20 19 06/04/2019 HbA1c (hemo globi n A1c), blood hemoglobin A1C 5.5 % 4.8-5. 6 Predi abete s: 5.7 - 6.4 Diabe hannah: >6.4 Glyce kerry contr ol for adult s with diabe hannah: <7.0 Not Available [facility] ([facility]) [address] [place], [address], 06/04/2019 10:10:35 06/03/20 19 06/04/2019 prola ctin, serum prolactin 6.7 NG/mL 4.8-23 .3 Not Available [facility] ([facility]) [address] [place], [address], 06/04/2019 10:10:36 06/03/20 19 06/04/2019 estra diol, serum estradiol 22.0 pg/mL Adult Femal e: Folli cular phase 12.5 - 166.0 Ovula tion phase 85.8 - 498.0 Lutea l phase 43.8 - 211.0 Postm enopa usal <6.0 - 54.7 Pregn antoine 1st trime ster 215.0 - >4300 .0 Girls (1-10 years ) 6.0 - 27.0 Ruben ECLIA metho dolog y Not Available [facility] ([facility]) [address] [place], [address], 06/04/2019 10:10:36 06/03/20 19 06/04/2019 vitam in [...] Endoc rine Socie ty went on to fur er defin e vitam in D insuf ficie ncy as a level betwe en 21 and 29 ng/mL (2). 1. IOM (Inst itute of Medic ine). 2009. Dieta ry refer ence intak es for calci um and D. Juan jones [place]: [facility] . 2. Irving apple MF, Ca faria [place], Scot off-F errar i ROBERTSON, et al. Evalu ation , treat ment, and preve ntion of vitam in D defic iency : an Endoc rine Socie ty clini samy pract ice guide line. JCEM. 2010; 96(7) :1911 -30. Not Available [facility] ([facility]) [address] [place], [address], 06/04/2019 10:10:37 06/03/20 19 06/04/2019 TSH, ultra -sens itive , serum TSH 2.930 uIU/m L 0.450- 4.500 Not Available [facility] ([facility]) [address] [place], [address], 06/04/2019 10:10:38 06/03/20 19 06/04/2019 proge stero ne, serum progesterone 0.4 NG/mL Folli cular phase 0.1 - 0.9 Lutea l phase 1.8 - 23.9 Ovula tion phase 0.1 - 12.0 Pregn ant First trime ster 11.0 - 44.3 Secon d trime ster 25.4 - 83.3 Third trime ster 58.7 - 214.0 Postm enopa usal 0.0 - 0.1 Not Available [facility] ([facility]) [address] [facility], [place], [address], 06/04/2019 10:10:38 08/04/19 20 08/05/2019 CBC w/ auto diff WBC 6.8 x10e3 /uL 3.4-10 .8 Not Available [facility] ([facility]) [address] [facility], [place], [address], 08/05/2019 06:25:04 08/04/1908/05/2019 CBC w/ auto diff RBC 4.83 x10e6 /uL 3.77-5 .28 Not Available [facility] ([facility]) [address] [facility], [place], [address], 08/05/2019 06:25:04 08/04/19 20 08/05/2019 CBC w/ auto diff hemoglobin 13.4 g/dL 11.1-1 5.9 Not Available [facility] ([facility]) [address] [facility], [place], [address], 08/05/2019 06:25:04 08/04/19 20 08/05/2019 CBC w/ auto diff hematocrit 42.6 % 34.0-4 6.6 Not Available [facility] ([facility]) [address] [place], [address], 08/05/2019 06:25:04 08/04/19 20 08/05/2019 CBC w/ auto diff MCV 88 fL 79-97 Not Available [facility] ([facility]) [address] [place], [address], 08/05/2019 06:25:04 08/04/1908/05/2019 CBC w/ auto diff MCH 27.7 pg 26.6-3 3.0 Not Available [facility] ([facility]) [address] [place], [address], 08/05/2019 06:25:04 08/04/19 20 08/05/2019 CBC w/ auto diff MCHC 31.5 g/dL 31.5-3 5.7 Not Available [facility] ([facility]) [address] [facility], [place], [address], 08/05/2019 06:25:04 08/04/19 20 08/05/2019 CBC w/ auto diff RDW 13.0 % 11.7-1 5.4 Not Available [facility] ([facility]) [address] [facility], [place], [address], 08/05/2019 06:25:04 08/04/19 20 08/05/2019 CBC w/ auto diff platelets 398 x10e3 /uL 150-45 0 Not Available [facility] ([facility]) [address] [facility], [place], [address], 08/05/2019 06:25:04 08/04/19 20 08/05/2019 CBC w/ auto diff neutrophils 61 % not estab. Not Available [facility] ([facility]) [address] [facility], [place], [address], 08/05/2019 06:25:04 08/04/19 20 08/05/2019 CBC w/ auto diff lymphs 25 % not estab. Not Available [facility] ([facility]) [address] [place], [address], 08/05/2019 06:25:04 08/04/19 20 08/05/2019 CBC w/ auto diff monocytes 8 % not estab. Not Available [facility] ([facility]) [address] [place], [address], 08/05/2019 06:25:04 08/04/19 20 08/05/2019 CBC w/ auto diff eos 5 % not estab. Not Available [facility] ([facility]) [address] [place], [address], 08/05/2019 06:25:04 08/04/19 20 08/05/2019 CBC w/ auto diff basos 1 % not estab. Not Available [facility] ([facility]) [address] [place], [address], 08/05/2019 06:25:04 08/04/19 20 08/05/2019 CBC w/ auto diff immature cells IT PROJECT LEAD Not Available [facility] ([facility]) [address] [place], [address], 08/05/2019 06:25:04 08/04/19 20 08/05/2019 CBC w/ auto diff neutrophils (absolute) 4.2 x10e3 /uL 1.4-7. 0 Not Available [facility] ([facility]) [address] [place], [address], 08/05/2019 06:25:04 08/04/19 20 08/05/2019 CBC w/ auto diff lymphs (absolute) 1.7 x10e3 /uL 0.7-3. 1 Not Available [facility] ([facility]) [address] [place], [address], 08/05/2019 06:25:04 08/04/19 20 08/05/2019 CBC w/ auto diff monocytes(ab solute) 0.5 x10e3 /uL 0.1-0. 9 Not Available [facility] ([facility]) [address] [place], [address], 08/05/2019 06:25:04 08/04/19 20 08/05/2019 CBC w/ auto diff eos (absolute) 0.4 x10e3 /uL 0.0-0. 4 Not Available [facility] ([facility]) [address] [place], [address], 08/05/2019 06:25:04 08/04/19 20 08/05/2019 CBC w/ auto diff baso (absolute) 0.1 x10e3 /uL 0.0-0. 2 Not Available [facility] ([facility]) [address] [place], [address], 08/05/2019 06:25:04 08/04/19 20 08/05/2019 CBC w/ auto diff immature granulocytes 0 % not estab. Not Available [facility] ([facility]) [address] [place], [address], 08/05/2019 06:25:04 08/04/19 20 08/05/2019 CBC w/ auto diff immature grans (abs) 0.0 x10e3 /uL 0.0-0. 1 Not Available [facility] ([facility]) [address] [place], [address], 08/05/2019 06:25:04 08/04/1908/05/2019 CBC w/ auto diff NRBC IT PROJECT LEAD Not Available [facility] ([facility]) [address] [place], [address], 08/05/2019 06:25:04 08/04/1908/05/2019 CBC w/ auto diff hematology comments: IT PROJECT LEAD Not Available [facility] ([facility]) [address] [place], [address], 08/05/2019 06:25:04 08/04/1908/05/2019 CMP, serum or plasm a glucose 90 mg/dL 65-99 Not Available [facility] ([facility]) [address] [place], [address], 08/05/2019 06:25:05 08/04/19 20 08/05/2019 CMP, serum or plasm a BUN 10 mg/dL 6-24 Not Available [facility] ([facility]) [address] [place], [address], 08/05/2019 06:25:05 08/04/19 20 08/05/2019 CMP, serum or plasm a creatinine 0.69 mg/dL 0.57-1 .00 Not Available [facility] ([facility]) [address] [place], [address], 08/05/2019 06:25:05 08/04/19 20 08/05/2019 CMP, serum or plasm a eGFR if nonafricn AM 108 mL/mi n/1.7 3 >59 Not Available [facility] ([facility]) [address] [place], [address], 08/05/2019 06:25:05 08/04/19 20 08/05/2019 CMP, serum or plasm a eGFR if africn AM 125 mL/mi n/1.7 3 >59 Not Available [facility] ([facility]) [address] [place], [address], 08/05/2019 06:25:05 08/04/19 20 08/05/2019 CMP, serum or plasm a BUN/creatini ne ratio 14 9-23 Not Available [facility] ([facility]) [address] [place], [address], 08/05/2019 06:25:05 08/04/19 20 08/05/2019 CMP, serum or plasm a sodium 141 mmol/ L 134-14 4 Not Available [facility] ([facility]) [address] [place], [address], 08/05/2019 06:25:05 08/04/19 20 08/05/2019 CMP, serum or plasm a potassium 4.9 mmol/ L 3.5-5. 2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 Onset/Timin-2 weeks Duration:Intermittent, occurs multiple times a day. Does not feel like it occurs with her menses. Quality:sharp; stabbing; Tearing Severity:severe Context:premenstrual Modifying Factors:touch (makes it worse) Associated Symptoms:no fever; no chills; no skin redness; no nipple discharge; breasts not full, sore, unable to express milk; no breast swelling; no arm pain; no arm swelling; no chest pain; no malaise; no breast lump;sore nipples 43 year old female presents today for bilateral breast pain x couple weeks. I feel like something is ripping near my nipples. Had mammogram completed yesterday. Has tried ibuprofen and tylenol both which have been no help. Requesting blood work because also noticing hair falling out in clumps, change in skin texture, and now breast pain. Dr. Davenport checked a bunch of labs a couple years ago, can you please draw those again. Patient showed me a picture of a cystocele and states Ever since I had my 9 pound baby, I have noticed this bulge in my vagina, it is so bad that at times it feels like it is going to fall out of my vagina. States she can not keep tampons in her vaginal canal anymore due to it. Admits to urinary frequency. Requesting information about surgery options. Finally, complaining of strange bumps on right vulva and right labia minora. It looks like cauliflower. It is tender to touch and gets irritated when I wear underwear. MELANY CASTRO Attn: Accounting,[address] [facility], [place], [address], [facility] 06/03/2019 17:00:08 08/04/2019 text/html Annual GYNReport ed bypatient.Menstrual cycle:Menorrhagia;Inte rvals less than 21 days;Irregular cycle intervals;Unexplained vaginal bleeding;Bleeding between periods Urinary symptoms:No hematuria;Stress incontinence;Nocturia Vulva:Painful genital lesion Vagina:Normal vaginal discharge Breast:No breast lump; No nipple discharge;Breast pain Current Contraception:Tubal ligation (1998) Sexual complaints:No sexual complaints; No pain during intercourse; Normal libido Menopausal Symptoms:No menopausal symptoms; Normal vaginal lubrication Psychological symptoms:No depression; No anxiety; No PMDD Preventive measures:Encourage self breast examination; Encourage regular exercise; Encourage no tobacco use; Encourage regular mammograms starting age [age] y/o female patient, , presents to the clinic for her annual plasterer maintenance examination. Patient's last Pap was in 2016. Patient had a bilateral tubal in 1998. Patient does have concerns of urinary incontinence, high cholesterol, and abnormal uterine bleeding. Dionte cronin, [facility] 08/04/2019 13:25:37 03/01/2020 text/html Started laser treatment for stress incontinence (minimal--no pads) while in [place] and would like to complete course. Had one of three. Does not smoke or drink. History of sling use in family. Still no pads. Stiven Mast MD [address] [place], [address], [facility] 03/01/2020 15:58:28 08/09/2020 text/html Abnormal BleedingReported bypatient.Onset/Timing :past 2 cycles Quality:heavy; passing clots Severity:changing pad/tampon every 1-2 hours; requires double protection; interferes with daily activities; bleeding through onto clothes/sheets Context:history of plasterer maintenance surgery: (endometrial ablation) Associated Symptoms:no pelvic pain; no abdominal pain; no dyspareunia; no fatigue; no anemia/iron supplements; no shortness of breath; no CP/palpitations; no bloating; no change in bowel function; no urinary symptoms; no PMS; no vaginal discharge; no vaginal itching/irritation;dys menorrhea;dizziness 44 y/o with history of cystocele and female sterilization would like to discuss her abnormal bleeding. S/p ablation 08/13/19. Dionte cronin, [place] - [facility] 08/09/2020 13:52:14 OBGyn Episode Ob Episode Information Episode Created Date Number of Fetuses Patient Bloodtype Patient rh Status Prepregnancy Weight lbs Domestic Partner Domestic Partner Phone Father Name Land Use Planner Status 05/14/20 17 1 CLOSED Fetus Data First Name Last Name Admitted to NICU Weight (g) Sex Living Outcome Pediatric Complications Fetus ID Race Codes Race Delivery Type 4450.64 4704 M Full Term [id number] Vaginal Asael Calculation Initial Asael Date Initial Exam Date Initial Exam Provider Initial Ultrasound Date Last Menstrual Period Date Ultra Sound Weeks Gestation 0 Eighteen To Twenty Week Asael Update Ultra Sound Date Fundal Height At Umbil Quickening Date Ultra Sound Latest Weeks Gestation Final Asael Confirmed By Final Asael Confirmed Date Final Asael Date Ultra Sound Latest Days Gestation 0 0 Menstrual History Last Menstrual Date Menses Monthly On Bcp Conception Prior Menses Frequency Hcg Plus Date Menarche Onset Age Delivery Information Delivery Date Delivery Type Labor Anesthesia Weeks Gestation Incision Type Labor Labor Length Hrs Delivered By Post Complications Tubal Sterilization Discharge Date Comments 9 Regional-Ep idural 46 05/14/[address] Noble delivered baby, pt states changed due date, cb-rma Discharge Information Feeding Method Contraceptive Method Maternal HG B and HCT Levels Ob Episode Information Episode Created Date Number of Fetuses Patient Bloodtype Patient rh Status Prepregnancy Weight lbs Domestic Partner Domestic Partner Phone Father Name Land Use Planner Status 05/14/20 17 1 CLOSED Fetus Data First Name Last Name Admitted to NICU Weight (g) Sex Living Outcome Pediatric Complications Fetus ID Race Codes Race Delivery Type 3855.53 2 F Full Term [id number] Vaginal Asael Calculation Initial Asael Date Initial Exam Date Initial Exam Provider Initial Ultrasound Date Last Menstrual Period Date Ultra Sound Weeks Gestation 0 Eighteen To Twenty Week Asael Update Ultra Sound Date Fundal Height At Umbil Quickening Date Ultra Sound Latest Weeks Gestation Final Asael Confirmed By Final Asael Confirmed Date Final Asael Date Ultra Sound Latest Days Gestation 0 0 Menstrual History Last Menstrual Date Menses Monthly On Bcp Conception Prior Menses Frequency Hcg Plus Date Menarche Onset Age Delivery Information Delivery Date Delivery Type Labor Anesthesia Weeks Gestation Incision Type Labor Labor Length Hrs Delivered By Post Complications Tubal Sterilization Discharge Date Comments 6 Regional-Ep idural 40 baby gir l born @ [place], cb-rma Discharge Information Feeding Method Contraceptive Method Maternal HG B and HCT Levels
--- OUTSIDE RECORDS SUMMARY | 2024-12-29 07:53 | XMS_ITS | Continuity of Care Document ---
Author Name [facility] Organization [facility] Care Team Providers Care Ethnology Teacher Name Role Phone [facility] Unavailable Unavailable Social History Combined list of available smoking, tobacco, and other social history from Department of Defense and Veterans Affairs facilities. Social History Type Response Date Comment Sourc e This section is an empty social history section. DoD
--- OUTSIDE RECORDS SUMMARY | 2024-12-29 07:53 | XMS_ITS | Encounter Summary ---
Author Organization [facility] Address [address] [place] [address] Care Team Providers Care Carpet Journeyman Name Role Phone Francois Carlson MD Primary Care Provider [phone] Reason for Visit * Reason Onset Date Comments Future Appointment 02/13/2024 Encounter Details Date Type Department Care Team (Late st Contact Info) Description 02/13/2024 Telephone [facility] - Centralized Scheduling [address] [place] [phone] Dionte Paez MD [address] [place] [address] Future Appointment Social History Tobacco Use Types [...] on file 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
--- OUTSIDE RECORDS SUMMARY | 2024-12-29 07:54 | XMS_ITS | Encounter Summary ---
Author Organization [facility] Address [address] [place] [address] Care Team Providers Care Sweeper Cleaner Industrial Name Role Phone Francois Carlson MD Primary Care Provider + [phone] Encounter Details Date Type Department Care Team (Late st Contact Info) Description 09/18/2023 Telephone [facility] - Allergy [address] [facility] [place] [phone] Mere Pond MD [address] [place] [address] Social History Tobacco Use Types Packs/Day Years Used Date Smoking Tobacco: Never Smokeless Tobacco: Never PHQ-2 Answer Date Recorded Patient Health Questionnaire-2 Score 0 08/18/2023 Comments Unknown Sex and Gender Information Value Date Recorded Sex Assigned at Not on file 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 Environmental allergens: Negative for cockroach, mold, dog, cat, mouse, trees, grass, ragweed, and other weeds. Total IgE: 174 Mere Pond MD Allergy & Immunology Fellow RACKER documented in this encounter Plan of Treatment Not on file documented as of this encounter Visit Diagnoses Not on filedocumented in this encounter Care Teams Sweeper Cleaner Industrial Relationship Specialty Start Date End Date Francois Carlson MD [address] [address] PCP - General Internal Medicine 08/18/23 documented as of this encounter
--- OUTSIDE RECORDS SUMMARY | 2024-12-29 07:54 | XMS_ITS | Clinical Summary ---
Author Organization [facility] Address [address] [place] [address] Care Team Providers Care Horse Buyer Name Role Phone Francois Carlson MD Primary Care Provider [phone] Source Comments [facility],non-owned Affiliates and Associated Physician Practices is amultiple site organization consisting of ambulatory clinics and hospital sitesin [place], [place], [place] and [place]. This disclosure is being madepursuant to the Care Everywhere program and may not contain all information available regarding this patient. Last updated 18.[facility] [employer] Allergies Active Allergy Reactions Criticality Noted Date Comments Ibuprofen Other High 08/18/2023 Stomach burning and irritation Xdmbhitk-Fnbzwnclfl-Pqoscd hanh Unknown Low 03/23/2024 Medications * Be aware that medications may not be up to date on this document. Alwaysverify current medications with the patient. albuterol HFA (Proventil; Ventolin; Proair) 108 (90 Base) MCG/ACT inhaler Inhale 2 (two) puffs by mouth as needed 10/08/19 23 Active cyclobenzapri ne (Flexeril) 10 MG tablet Take 1 (one) tablet by mouth as needed 07/16/19 24 Active budesonide-fo rmoterol (Symbicort) 80-4.5 MCG/ACT inhalerIndica tions:Other cough Inhale 2 (two) puffs by mouth 2 times daily 10.2 g 11 08/18/19 24 Active famotidine (Pepcid) 20 MG tabletIndicat ions:Hoarsene ss of voice Take 1 (one) tablet by mouth at bedtime 90 tablet 4 08/18/19 24 Active fluticasone propionate (Flonase) 50 MCG/ACT nasal sprayIndicati ons:Chronic rhinitis Oran 2 (two) sprays into each nostril once daily 16 g 11 01/12/20 24 Active mometasone (Elocon) 0.1 % ointment Apply to affected area on arms and fingers BID. 30 day supply. 45 g 02/16/20 24 Active Additional Information Patient taking differently: PRN, Apply to affected area on arms and fingers BID. 30 day supply., Reported on 04/06/2024 neomycin-poly myxin-hc (Cortisporin) 3.5-32370-4 otic suspension Instill 4 (four) drops into both ears as directed 03/10/20 24 Active clotrimazole- betamethasone (Lotrisone) 1-0.05 % cream Apply to affected area 2 times daily 15 g 05/11/20 24 Active fluocinonide (Lidex) 0.05 % solution Apply to itchy flaky areas in scalp 1-2 daily. 50 mL 05/17/20 24 Active clotrimazole (Lotrimin AF) 1 % cream Apply to affected area 2 times daily 15 g 05/17/20 24 Active betamethasone valerate (Valisone) 0.1 % cream Apply to affected area 2 times daily 15 g 05/17/20 24 Active valACYclovir (Valtrex) 1 GM tabletIndicat ions:HSV (herpes simplex virus) infection Take 1 tab PO at first sign of outbreak, repeat in 12 hrs for total 2 doses 6 tablet 09/02/19 25 Active triamcinolone acetonide (Kenalog) 0.1 % ointmentIndic ations:Dermat itis Apply to affected area on arms, neck and ears BID. Padagis, fourgera, or perrigo brands only. 30 day supply Reasons: Skin Inflammation 454 g 1 12/04/19 25 Active triamcinolone acetonide (Kenalog) 0.1 % ointment Apply to affected area on feet BID. 30 day supply 80 g 05/17/20 24 025 Discontinued(L ist Clean-Up) triamcinolone acetonide (Kenalog) 0.1 % ointmentIndic ations:Dermat itis Apply to affected area on feet BID. 30 day supply Reasons: Skin Inflammation 454 g 1 12/04/19 25 025 Discontinued Active Problems Problem Noted Date Diagnosed Date Other allergic contact dermatitis 02/16/2024 Multiple benign nevi 02/16/2024 Folliculitis 02/16/2024 Encounters Date Type Department Care Team Description 12/03/2024 3:10 PM CDT Office Visit [facility] - Dermatology [address] [place] [phone] Ya Bazzi MD Phototoxic dermatitis (Primary Dx) 12/03/2024 Travel 12/02/2024 Telephone [facility] - Dermatology [address] [place] [phone] Makeda Bernardo MD Question from Last 3 Months Immunizations Immunization Administration [...] on file 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 Gender Identity Not on file Sexual Orientation [...] 10:54 AM CDT Height 157.5 cm (5' 2) 05/11/2024 10:54 AM CDT Body Mass Index [...] FLEX SIG - COLON CA SCREENING 1977 MAMMOGRAM 1977 PAP SMEAR 1977 HIV SCREENING 1992 HEPATITIS C SCREENING 11/09/1995 HEPATITIS B VACCINE (1 of 3 - 19+ 3-dose series) 1996 COVID-19 VACCINE ( - 2023-2 5 season) 2024 07/30/2021, 06/24/2021 DEPRESSION SCREENING 07/14/2024 08/18/2023 INFLUENZA VACCINE (Season Ended) 2025 DTAP/TDAP/TD VACCINES (2 - T d or Tdap) 05/29/2027 05/29/2017 SCREENING FOR DIABETES 09/26/2027 , 09/25/2024 ZOSTER VACCINE (1 of 2) 11/14/2027 LIPID TESTING 09/25/2029 09/25/2024 HIB VACCINE Aged Out No longer eligi [...] patient's age to complete this topic Insurance [employer] [place] Care Teams Horse Buyer Relationship Specialty Start Date End Date Francois Carlson MD [address] [place], [place] [phone] PCP - General Internal Medicine 08/18/23
--- OUTSIDE RECORDS SUMMARY | 2024-12-29 07:54 | XMS_ITS | CONTINUITY OF CARE DOCUMENT ---
Author Name robbi culp Address Unknown Organization [facility] Address [address] [place] [address] Phone [phone] Care Team Providers Care Building Principal Name Role Phone Darron Gottlieb MD Unavailable [phone] Darron Gottlieb MD Unavailable [phone] INSURANCE PROVIDERS Payer name Policy type / Coverage type Kerline red alliance party [place] Medicaid [id number]
--- OUTSIDE RECORDS SUMMARY | 2024-12-29 07:54 | XMS_ITS | Clinical Summary ---
Author Organization [facility] [address] Address [address] [place] [phone] Care Team Providers Care Color Adviser Name Role Phone Mauricio Hernandez MD Primary Care Provider Allergies Active Allergy Reactions Criticality Noted Date Comments Ibuprofen Other (See Comments) High 08/18/2023 Stomach burning and irritation Zbnoondw-Iouktlqfqb-D olymyxin Unknown Low 03/23/2024 Medications albuterol sulfate [...] 4 Active fluticasone propionate (FLONASE) 50 mcg/spray [place], Suspension nasal inhaler Administer 2 Sprays in [...] Encounters Date Type Department Care Team Description 12/02/2024 External Device Data [facility] ABSTRACTION Provider, Abstract 12/01/2024 External Device Data [facility] ABSTRACTION Provider, Abstract 11/30/2024 External Device Data [facility] ABSTRACTION Provider, Abstract 11/22/2024 Telephone [facility] [address] [phone] Mauricio Hernandez MD Patient Communication 11/09/2024 External Device Data ST[facility] ABSTRACTION Provider, Abstract 11/09/2024 External Device Data [facility] ABSTRACTION Provider, Abstract 11/09/2024 External Device Data [facility] ABSTRACTION Provider, Abstract 11/08/2024 9:40 AM CDT Office Visit [facility] [address] [phone] Mauricio Hernandez MD Encounter for [...] on file 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 Gender Identity Not on file Sexual Orientation [...] 9:43 AM CDT Height 157.5 cm (5' 2) 11/08/2024 9:43 AM CDT Body Mass Index 34.39 11/08/2024 9:43 AM CDT Plan of Treatment Upcoming Encounters Date Type Department Care Team (Late st Contact Info) Description 11/14/2025 9:00 AM CDT Office Visit [facility] [address] [place] [phone] Mauricio Hernandez MD [address] [place] [address] Health Maintenance Due Date Last Done Comments Pre-Diabetes and Diabetes Screening 1977 Preventative Visit-Managed Medicaid 1996 HPV/Cotest (21-29) 1998 CERVICAL CANCER SCREENING 11/14/2007 HPV/Cotest (30-65) 11/14/2007 PAP SMEAR 11/14/2007 BREAST CANCER SCREENING 2017 COLORECTAL SCREENING 2022 Colorectal Cancer Screening 2022 FIT-DNA Q 3 years 2022 FIT/FOBT Q 1 year 2022 Flex Sig/CT Colonography Q 5 years 2022 DTAP/TDAP/TD VACCINES (2 - Td or Tdap) 05/29/2027 INFLUENZA VACCINE Completed 11/08/2024 Insurance [employer] Care Teams Color Adviser Relationship Specialty Start Date End Date Mauricio Hernandez MD [address] [place] [address] PCP - General Internal Medicine 11/08/24
--- OUTSIDE RECORDS SUMMARY | 2024-12-29 07:54 | XMS_ITS | Data Portability ---
Author Organization [place] [employer], Main Office Address [address] [place] [address] Assessment Encounter Date Assessment Date Assessment LastModified by Organization Details LastModified Time 01/28/2023 01/28/2023 Cscope- ordered- Castillo [employer]- Aris Mammogram- ordered Call office if worse, ER if life-threatening illness RTC in 1 month She voiced understanding of plan and agrees over 60 min spent with patient, over half spent on counseling, reviewing her multiple medical complaints and test request, and discussing plan of care [email or web address] Not available 01/28/2023 13:28:40 03/24/2023 03/24/2023 Cscope- ordered- Castillo [employer]- Aris Mammogram- ordered Call office if worse, ER if life-threatening illness RTC in 3 months She voiced understanding of plan and agrees [email or web address] Not available 03/24/2023 13:22:26 Plan of Treatment Reminders Order Date Submit Date Provider Last Modified By Organization Details Last Modified Time Details Appointments None recorded. Lab ferritin, serum or plasma 2022 023 [facility] (Lab), [address] [place], [address], 3 14:58:18 iron + total iron-bindin g capacity (TIBC), serum 2022 023 [facility] (Lab), [address] [place], [address], 3 14:04:49 vitamin B12 + folate, serum or blood [address] (Lab), [address] [place], [address], 3 11:26:48 CBC w/ auto diff 2022 023 [facility] (Lab), [address] [place], [address], 3 13:36:07 CMP, serum or plasma 2022 023 [facility] (Lab), [address] [place], [address], 3 14:59:09 lipid panel, serum 2022 023 [facility] (Lab), [address] [place], [address], 3 14:59:16 TSH, serum or plasma 2022 023 [facility] (Lab), [address] [place], [address], 3 14:28:46 vitamin D, 25-hydroxy, total, serum [email or web address] (Lab), [address] [place], [address], 3 11:26:47 lipid panel, serum 2022 023 [facility] (Lab), [address] [place], [address], 3 14:35:14 glycohemogl obin, total, blood 2022 023 [facility] (Lab), [address] [place], [address], 3 15:39:15 CMP, serum or plasma 2022 023 [facility] (Lab), [address] [place], [address], 3 14:35:25 CBC w/ auto diff 2022 023 [facility] (Lab), [address] [place], [address], 3 14:24:14 insulin, serum 2022 023 [facility] (Lab), [address] [place], [address], 3 12:13:16 TSH, serum or plasma 2022 023 [facility] (Lab), [address] [place], [address], 3 14:59:15 T4, free, serum 2022 023 [facility] (Lab), [address] [place], [address], 3 14:50:02 thyroid peroxidase (tpo) Ab, serum 2022 023 [facility] (Lab), [address] [place], [address], 3 10:12:58 T3, free, serum or plasma 2022 023 [facility] (Lab), [address] [place], [address], 3 14:50:06 iron + total iron-bindin g capacity (TIBC), serum 2022 023 [facility] (Lab), [address] [place], [address], 3 14:34:38 vitamin B12 + folate, serum or blood 2022 023 [email or web address] [facility] (Lab), [address] [place], [address], 3 09:30:15 ferritin, serum or plasma 2022 023 PAT [facility] (Lab), [address] [place], [address], 3 15:10:05 vitamin D, 25-hydroxy, total, serum [address] (Lab), [address] [place], [address], 3 09:30:14 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 referral 2022 023 [email or web address] [facility], [address] [place] [address], [address], 4 09:26:[address] referral 2022 023 [email or web address] [facility], [address] [place] [address], [address], 4 09:26:19 neurologist referral 2022 023 leo Reynoso MD, Soledad0 [facility] [address], [place], [address], 4 09:26:[address] referral 2022 023 [email or web address] [facility], [address] [place] [address], [address], 4 09:26:16 neurologist referral 2022 023 leo Reynoso MD, [address], [place], [address], 4 09:26:17 Procedures colonoscopy screening (PROC) 2022 023 leo Castillo MD, [address], [facility] [address], [place], [address], 3 09:05:48 colonoscopy screening (PROC) 2022 023 leo Castillo MD, [address], [facility] [address], [place], [address], 3 09:05:47 Surgeries None recorded. Imaging MAMMO, screening, bilateral [address] ([facility]), [address] [place], [address], 3 10:43:44 XR, cervical spine, 2 or 3 view 2022 023 [facility] ([facility]), [address] [place], [address], 3 13:30:07 XR, finger(s), 2 or more view - left first (pointer) finger [address] ([facility]), [address] [place], [address], 3 10:43:44 XR, cervical spine, 2 or 3 view [address] ([facility]), [address] [place], [address], 3 10:43:43 MAMMO, screening, bilateral [address] ([facility]), [address] [place], [address], 3 10:43:43 Medication Orders None recorded. Patient TargetsNo targets recorded. Patient Instructions Encounter Date Encounter Id Patient Instructions Last Modified By Organization Details Last Modified Time 01/28/2023 [id number] INFLUENZA VACCIN E Next vaccination to be given fall of 2022 TD/TDAP Patient will get at local pharmacy/health department PNEUMONIA VACCINE Recommended at age 67 SHINGLES Not indicated MAMMOGRAM: Last Mammogram __ Ordered DEXA SCAN No screening indicated CERVICAL SCREENING/PELVIC EXAMINATION No screening necessary patient is up to date COLORECTAL SCREENING: Last Colonoscopy Ordered DEPRESSION SCREENING Negative BMI Obesity continue your current weight loss efforts NUTRITION Continue healthy eating & exercise PHYSICAL ACTIVITY Need more exercise/physical activity minimum of 30-40 minutes of activity that causes mild breathlessness/da y VISION Recommended today ALCOHOL USE Occasional/Social Use TOBACCO USE non smoker LUNG CANCER SCREENING Non Smoker-not indicated SEXUALLY ACTIVE No HEPATITIS C SCREENING Not indicated GLUCOSE SCREENING Ordered LIPID SCREENING Ordered [email or web address] Not available 01/28/2023 13:31:09 Reason for Referral Can Cleaner Referral for L oss of hair Referring Physician: Gretel Romero, Internal Medicine, Encounter Date: 01/28/2023 Neurologist Referral for Bernardino angie Referring Physician: Gretel Romero Internal Medicine, Encounter Date: 01/28/2023 Neurologist Referral for Bernardino angie Referring Physician: Gretel Romero Internal Medicine, Encounter Date: 03/24/2023 Can Cleaner Referral for L oss of hair Referring Physician: Gretel Romero Internal Medicine, Encounter Date: 03/24/2023 Panel Saw Operator Referral for Seaso nal allergy Referring Physician: Gretel Romero Internal Medicine, Encounter Date: 03/24/2023 Results Created Date Observation Date Name Description Value Unit Range Abnormal Flag Note LastModifiedBy Organization Detail LastModifiedTime 01/29/20 23 01/28/2023 CBC/C OMPLE TE BLD COUNT W/DIF F white blood cells 6.7 x10'3 /uL 4.2-10 .8 Not Available [facility] (Lab) [address] [place], [address], 01/28/2023 14:24:14 01/29/20 23 01/28/2023 CBC/C OMPLE TE BLD COUNT W/DIF F red blood cells 5.20 x10'6 /uL 3.80-5 .20 Not Available [facility] (Lab) [address] [place], [address], 01/28/2023 14:24:14 01/29/20 23 01/28/2023 CBC/C OMPLE TE BLD COUNT W/DIF F hemoglobin 15.1 g/dL 12.0-1 5.6 Not Available [facility] (Lab) [address] [place], [address], 01/28/2023 14:24:14 01/29/20 23 01/28/2023 CBC/C OMPLE TE BLD COUNT W/DIF F hematocrit 46.7 % 35.7-4 5.7 high Not Available [facility] (Lab) [address] [place], [address], 01/28/2023 14:24:14 01/29/20 23 01/28/2023 CBC/C OMPLE TE BLD COUNT W/DIF F mean red cell volume 89.8 fL 82.0-9 9.0 Not Available [facility] (Lab) [address] [place], [address], 01/28/2023 14:24:14 01/29/20 23 01/28/2023 CBC/C OMPLE TE BLD COUNT W/DIF F mean red cell hemoglobin 29.0 pg 27.0-3 3.0 Not Available [facility] (Lab) [address] [place], [address], 01/28/2023 14:24:14 01/29/20 23 01/28/2023 CBC/C OMPLE TE BLD COUNT W/DIF F mean RBC HGB concentratio n 32.3 g/dL 31.0-3 6.0 Not Available [facility] (Lab) [address] [place], [address], 01/28/2023 14:24:14 01/29/20 23 01/28/2023 CBC/C OMPLE TE BLD COUNT W/DIF F red cell distribution width 12.5 % 11.8-1 5.5 Not Available [facility] (Lab) [address] [place], [address], 01/28/2023 14:24:14 01/29/20 23 01/28/2023 CBC/C OMPLE TE BLD COUNT W/DIF F platelets 275 x10'3 /uL 150-40 0 Not Available [facility] (Lab) [address] [place], [address], 01/28/2023 14:24:14 01/29/20 23 01/28/2023 CBC/C OMPLE TE BLD COUNT W/DIF F mean platelet volume 11.0 fL 9.0-12 .4 Not Available [facility] (Lab) [address] [place], [address], 01/28/2023 14:24:14 01/29/2001/28/2023 CBC/C OMPLE TE BLD COUNT W/DIF F neutrophils 55.9 % 39.0-7 2.0 Not Available [facility] (Lab) [address] [place], [address], 01/28/2023 14:24:14 01/29/2001/28/2023 CBC/C OMPLE TE BLD COUNT W/DIF F lymphocytes 33.4 % 16.0-4 7.0 Not Available [facility] (Lab) [address] [place], [address], 01/28/2023 14:24:14 01/29/20 23 01/28/2023 CBC/C OMPLE TE BLD COUNT W/DIF F monocytes 6.1 % 5.0-12 .0 Not Available [facility] (Lab) [address] [place], [address], 01/28/2023 14:24:14 01/29/20 23 01/28/2023 CBC/C OMPLE TE BLD COUNT W/DIF F eosinophils 3.6 % 1.0-7. 0 Not Available [facility] (Lab) [address] [place], [address], 01/28/2023 14:24:14 01/29/20 23 01/28/2023 CBC/C OMPLE TE BLD COUNT W/DIF F basophils 0.7 % 0.0-2. 0 Not Available [facility] (Lab) [address] [place], [address], 01/28/2023 14:24:14 01/29/20 23 01/28/2023 CBC/C OMPLE TE BLD COUNT W/DIF F immature granulocytes 0.3 % 0.00-0 .50 Not Available [facility] (Lab) [address] [place], [address], 01/28/2023 14:24:14 01/29/20 23 01/28/2023 CBC/C OMPLE TE BLD COUNT W/DIF F neutrophils, absolute count 3.72 x10'3 /uL 1.5-8. 0 Not Available [facility] (Lab) [address] [place], [address], 01/28/2023 14:24:14 01/29/20 23 01/28/2023 CBC/C OMPLE TE BLD COUNT W/DIF F lymphocytes, absolute count 2.23 x10'3 /uL 1.07-3 .43 Not Available [facility] (Lab) [address] [place], [address], 01/28/2023 14:24:14 01/29/20 23 01/28/2023 CBC/C OMPLE TE BLD COUNT W/DIF F monocytes, absolute count 0.41 x10'3 /uL 0.29-0 .99 Not Available [facility] (Lab) [address] [place], [address], 01/28/2023 14:24:14 01/29/20 23 01/28/2023 CBC/C OMPLE TE BLD COUNT W/DIF F eosinophils, absolute count 0.24 x10'3 /uL 0.02-0 .53 Not Available [facility] (Lab) [address] [place], [address], 01/28/2023 14:24:14 01/29/20 23 01/28/2023 CBC/C OMPLE TE BLD COUNT W/DIF F basophils, absolute count 0.05 x10'3 /uL 0.01-0 .08 Not Available [facility] (Lab) [address] [place], [address], 01/28/2023 14:24:14 01/29/20 23 01/28/2023 CBC/C OMPLE TE BLD COUNT W/DIF F immature granulocytes ,absolute 0.02 x10'3 /uL 0.00-0 .05 Not Available [facility] (Lab) [address] [place], [address], 01/28/2023 14:24:14 01/29/20 23 01/28/2023 CBC/C OMPLE TE BLD COUNT W/DIF F nucleated red blood cells 0.0 % -0 Not Available [facility] (Lab) [address] [place], [address], 01/28/2023 14:24:14 01/29/20 23 01/28/2023 CBC/C OMPLE TE BLD COUNT W/DIF F NRBC# 0.00 x10'3 /uL Not Available [facility] (Lab) [address] [place], [address], 01/28/2023 14:24:14 01/29/20 23 01/28/2023 IRON/ TIBC PANEL total iron binding capacity 356 mcg/d L 265-47 5 Not Available [facility] (Lab) [address] [place], [address], 01/28/2023 14:49:25 01/29/20 23 01/28/2023 IRON/ TIBC PANEL % transferrin saturation 19 % 20-55 low Not Available [facility] (Lab) [address] [place], [address], 01/28/2023 14:49:25 01/29/20 23 01/28/2023 IRON/ TIBC PANEL unsaturated iron bind capacity 287 mcg/d L 126-38 2 Not Available [facility] (Lab) [address] [place], [address], 01/28/2023 14:49:25 01/29/20 23 01/28/2023 IRON/ TIBC PANEL iron 69 mcg/d L 42-175 Not Available [facility] (Lab) [address] [place], [address], 01/28/2023 14:49:25 01/29/20 23 01/28/2023 LIPID PANEL cholesterol 253 mg/dL 140-19 9 high NIH JESSE NSUS RECOM MENDA TION FOR NAHEED STERO L: ADULT CHILD LOW RISK: <200 <170 BORDE RLINE : <200- 239 ----- HIGH RISK: >240 >200 Not Available [facility] (Lab) [address] [place], [address], 01/28/2023 14:35:14 01/29/20 23 01/28/2023 LIPID PANEL triglyceride s 101 mg/dL 0-150 NIH JESSE NSUS REPOR T RECOM MENDA TION FOR TRIGL YCERI PERLA: ADULT CHILD LOW RISK: <150 ----- BODER LINE: 150-1 99 ----- HIGH RISK: >200 ----- Not Available [facility] (Lab) [address] [place], [address], 01/28/2023 14:35:14 01/29/20 23 01/28/2023 LIPID PANEL HDL cholesterol 65 mg/dL 40- Not Available [facility] (Lab) [address] [place], [address], 01/28/2023 14:35:14 01/29/20 23 01/28/2023 LIPID PANEL [...] WILL NOT BE REPOR ALVIN. Not Available [facility] (Lab) [address] [place], [address], 01/28/2023 14:35:14 01/29/20 23 01/28/2023 COMPR EHENS INES METAB OLIC PANEL sodium 142 mmol/ L 137-14 5 Not Available [facility] (Lab) [address] [place], [address], 01/28/2023 14:35:25 01/29/20 23 01/28/2023 COMPR EHENS INES METAB OLIC PANEL potassium 4.0 mmol/ L 3.5-5. 1 Not Available [facility] (Lab) [address] [place], [address], 01/28/2023 14:35:25 01/29/20 23 01/28/2023 COMPR EHENS INES METAB OLIC PANEL chloride 104 mmol/ L 98-107 Not Available [facility] (Lab) [address] [place], [address], 01/28/2023 14:35:25 01/29/20 23 01/28/2023 COMPR EHENS INES METAB OLIC PANEL carbon dioxide 26 mmol/ L 22-30 Not Available [facility] (Lab) [address] [place], [address], 01/28/2023 14:35:25 01/29/20 23 01/28/2023 COMPR EHENS INES METAB OLIC PANEL anion gap 16.0 mmol/ L 14-22 Not Available [facility] (Lab) [address] [place], [address], 01/28/2023 14:35:25 01/29/20 23 01/28/2023 COMPR EHENS INES METAB OLIC PANEL glucose 82 mg/dL 70-99 Not Available [facility] (Lab) [address] [place], [address], 01/28/2023 14:35:25 01/29/20 23 01/28/2023 COMPR EHENS INES METAB OLIC PANEL BUN 10 mg/dL 8-19 Not Available [facility] (Lab) [address] [place], [address], 01/28/2023 14:35:25 01/29/20 23 01/28/2023 COMPR EHENS INES METAB OLIC PANEL creatinine 0.76 mg/dL 0.66-1 .25 Not Available [facility] (Lab) [address] [place], [address], 01/28/2023 14:35:25 01/29/20 23 01/28/2023 COMPR EHENS INES METAB OLIC PANEL GFR >60 Refer ence Range : [place] GFR Healt hy Adult : >60 [...] calcu lator is avail able on the [facility] websi te: [email or web address] :[email or web address] rg/pr ofess ional s/kdo qi/gf r_cal culat or Not Available [facility] (Lab) [address] [place], [address], 01/28/2023 14:35:25 01/29/20 23 01/28/2023 COMPR EHENS INES METAB OLIC PANEL alkaline phosphatase 68 U/L 38-126 Not Available [facility] (Lab) [address] [place], [address], 01/28/2023 14:35:25 01/29/20 23 01/28/2023 COMPR EHENS INES METAB OLIC PANEL alanine aminotransfe rase 19 U/L 0-35 Not Available [facility] (Lab) [address] [place], [address], 01/28/2023 14:35:25 01/29/20 23 01/28/2023 COMPR EHENS INES METAB OLIC PANEL aspartate aminotransfe rase 28 U/L 15-37 Not Available [facility] (Lab) [address] [place], [address], 01/28/2023 14:35:25 01/29/20 23 01/28/2023 COMPR EHENS INES METAB OLIC PANEL bilirubin, total 0.50 mg/dL 0.20-1 .30 Not Available [facility] (Lab) [address] [place], [address], 01/28/2023 14:35:25 01/29/20 23 01/28/2023 COMPR EHENS INES METAB OLIC PANEL calcium 9.8 mg/dL 8.4-10 .2 Not Available [facility] (Lab) [address] [place], [address], 01/28/2023 14:35:25 01/29/20 23 01/28/2023 COMPR EHENS INES METAB OLIC PANEL total protein 8.3 g/dL 6.3-8. 2 high Not Available [facility] (Lab) [address] [place], [address], 01/28/2023 14:35:25 01/29/20 23 01/28/2023 COMPR EHENS INES METAB OLIC PANEL albumin 4.9 g/dL 3.4-5. 0 Not Available [facility] (Lab) [address] [place], [address], 01/28/2023 14:35:25 01/29/20 23 01/28/2023 COMPR EHENS INES METAB OLIC PANEL globulin 3.4 g/dL 2.6-4. 2 Not Available [facility] (Lab) [address] [place], [address], 01/28/2023 14:35:25 01/29/20 23 01/28/2023 COMPR EHENS INES METAB OLIC PANEL A/G ratio 1.4 ratio 1.0-2. 0 Not Available [facility] (Lab) [address] [place], [address], 01/28/2023 14:35:25 01/29/20 23 01/28/2023 VITAM IN D 25-HY DROXY [id number] 31.0 NG/mL 30-100 Vitam in D Statu s: Defic ient: <20 ng/mL Insuf ficie nt: 20-29 ng/mL Suffi cient : 30-10 0 ng/mL Not Available [facility] (Lab) [address] [place], [address], 01/28/2023 14:48:45 01/29/20 23 01/28/2023 T4 FREE free T4 1.26 NG/dL 0.78-2 .19 Not Available [facility] (Lab) [address] [place], [address], 01/28/2023 14:50:02 01/29/20 23 01/28/2023 T3 FREE free T3 3.0 pg/mL 2.77-5 .27 Not Available [facility] (Lab) [address] [place], [address], 01/28/2023 14:50:06 01/29/20 23 01/28/2023 TSH thyroid-stim ulating hormone 1.160 uIU/m L 0.465- 4.680 Not Available [facility] (Lab) [address] [place], [address], 01/28/2023 14:59:14 01/29/2001/28/2023 KIEL TIN ferritin 48 NG/mL 6.24-1 37 Not Available [facility] (Lab) [address] [place], [address], 01/28/2023 15:10:05 01/29/2001/28/2023 HEMOG LOBIN A1C HA1C 5.2 % 4.0-6. 0 Diabe hannah Scree elva Crite gary: <5.7% Consi stent with absen ce of diabe hannah 5.7-6 .4% Consi stent with incre ased risk for diabe hannah (pred iabet es) >OR=6 .5% Consi stent with diabe hannah REFER ENCE: Diabe hannah Care 2016, 39(Castillo ppl.1 ):s13 -s22 Not Available [facility] (Lab) [address] [place], [address], 01/28/2023 15:39:15 01/29/20 23 01/28/2023 VITAM IN B12 (PENG LASHAWN ) vb12 514 pg/mL 239-93 1 Not Available [facility] (Lab) [address] [place], [address], 01/28/2023 17:09:31 01/29/20 23 01/28/2023 FOLAT E, SERUM /PLAS MA folate 4.25 NG/mL 2.76-2 0.0 Not Available [facility] (Lab) [address] [place], [address], 01/28/2023 16:17:08 01/29/20 23 01/29/2023 THYRO ID PEROX IDASE (TPO) AB thyroid peroxidase (tpo) Ab 11 IU/mL 0-34 [facility] [address] [place] [address] Lab Direc tor: Misael stafford PhD, Phone : [phone] Not Available [facility] (Lab) [address] [place], [address], 01/29/2023 10:12:58 01/29/20 23 01/29/2023 INSUL IN insulin 4.3 uIU/m L 2.6-24 .9 [facility]fo [facility] at: [facility] [address] [place] [address] Lab Direc tor: Misael stafford PhD, Phone : [phone] Not Available [facility] (Lab) [address] [place], [address], 01/29/2023 12:13:16 03/24/20 23 03/24/2023 CBC/C OMPLE TE BLD COUNT W/DIF F white blood cells 6.2 x10'3 /uL 4.2-10 .8 Not Available [facility] (Lab) [address] [place], [address], 03/24/2023 13:36:07 03/24/20 23 03/24/2023 CBC/C OMPLE TE BLD COUNT W/DIF F red blood cells 4.72 x10'6 /uL 3.80-5 .20 Not Available [facility] (Lab) [address] [place], [address], 03/24/2023 13:36:07 03/24/20 23 03/24/2023 CBC/C OMPLE TE BLD COUNT W/DIF F hemoglobin 13.8 g/dL 12.0-1 5.6 Not Available [facility] (Lab) [address] [place], [address], 03/24/2023 13:36:07 03/24/20 23 03/24/2023 CBC/C OMPLE TE BLD COUNT W/DIF F hematocrit 43.6 % 35.7-4 5.7 Not Available [facility] (Lab) [address] [place], [address], 03/24/2023 13:36:07 03/24/20 23 03/24/2023 CBC/C OMPLE TE BLD COUNT W/DIF F mean red cell volume 92.4 fL 82.0-9 9.0 Not Available [facility] (Lab) [address] [place], [address], 03/24/2023 13:36:07 03/24/20 23 03/24/2023 CBC/C OMPLE TE BLD COUNT W/DIF F mean red cell hemoglobin 29.2 pg 27.0-3 3.0 Not Available [facility] (Lab) [address] [place], [address], 03/24/2023 13:36:07 03/24/20 23 03/24/2023 CBC/C OMPLE TE BLD COUNT W/DIF F mean RBC HGB concentratio n 31.7 g/dL 31.0-3 6.0 Not Available [facility] (Lab) [address] [facility] [place], [address], 03/24/2023 13:36:07 03/24/20 23 03/24/2023 CBC/C OMPLE TE BLD COUNT W/DIF F red cell distribution width 12.7 % 11.8-1 5.5 Not Available [facility] (Lab) [address] [place], [address], 03/24/2023 13:36:07 03/24/20 23 03/24/2023 CBC/C OMPLE TE BLD COUNT W/DIF F platelets 304 x10'3 /uL 150-40 0 Not Available [facility] (Lab) [address] [place], [address], 03/24/2023 13:36:07 03/24/20 23 03/24/2023 CBC/C OMPLE TE BLD COUNT W/DIF F mean platelet volume 11.3 fL 9.0-12 .4 Not Available [facility] (Lab) [address] [place], [address], 03/24/2023 13:36:07 03/24/20 23 03/24/2023 CBC/C OMPLE TE BLD COUNT W/DIF F neutrophils 59.8 % 39.0-7 2.0 Not Available [facility] (Lab) [address] [place], [address], 03/24/2023 13:36:07 03/24/20 23 03/24/2023 CBC/C OMPLE TE BLD COUNT W/DIF F lymphocytes 29.1 % 16.0-4 7.0 Not Available [facility] (Lab) [address] [place], [address], 03/24/2023 13:36:07 03/24/20 23 03/24/2023 CBC/C OMPLE TE BLD COUNT W/DIF F monocytes 5.8 % 5.0-12 .0 Not Available [facility] (Lab) [address] [place], [address], 03/24/2023 13:36:07 03/24/20 23 03/24/2023 CBC/C OMPLE TE BLD COUNT W/DIF F eosinophils 4.0 % 1.0-7. 0 Not Available [facility] (Lab) [address] [place], [address], 03/24/2023 13:36:07 03/24/20 23 03/24/2023 CBC/C OMPLE TE BLD COUNT W/DIF F basophils 0.8 % 0.0-2. 0 Not Available [facility] (Lab) [address] [place], [address], 03/24/2023 13:36:07 03/24/20 23 03/24/2023 CBC/C OMPLE TE BLD COUNT W/DIF F immature granulocytes 0.5 % 0.00-0 .50 Not Available [facility] (Lab) [address] [place], [address], 03/24/2023 13:36:07 03/24/20 23 03/24/2023 CBC/C OMPLE TE BLD COUNT W/DIF F neutrophils, absolute count 3.73 x10'3 /uL 1.5-8. 0 Not Available [facility] (Lab) [address] [place], [address], 03/24/2023 13:36:07 03/24/20 23 03/24/2023 CBC/C OMPLE TE BLD COUNT W/DIF F lymphocytes, absolute count 1.81 x10'3 /uL 1.07-3 .43 Not Available [facility] (Lab) [address] [place], [address], 03/24/2023 13:36:07 03/24/20 23 03/24/2023 CBC/C OMPLE TE BLD COUNT W/DIF F monocytes, absolute count 0.36 x10'3 /uL 0.29-0 .99 Not Available [facility] (Lab) [address] [place], [address], 03/24/2023 13:36:07 03/24/20 23 03/24/2023 CBC/C OMPLE TE BLD COUNT W/DIF F eosinophils, absolute count 0.25 x10'3 /uL 0.02-0 .53 Not Available [facility] (Lab) [address] [place], [address], 03/24/2023 13:36:07 03/24/20 23 03/24/2023 CBC/C OMPLE TE BLD COUNT W/DIF F basophils, absolute count 0.05 x10'3 /uL 0.01-0 .08 Not Available [facility] (Lab) [address] [place], [address], 03/24/2023 13:36:07 03/24/20 23 03/24/2023 CBC/C OMPLE TE BLD COUNT W/DIF F immature granulocytes ,absolute 0.03 x10'3 /uL 0.00-0 .05 Not Available [facility] (Lab) [address] [place], [address], 03/24/2023 13:36:07 03/24/20 23 03/24/2023 CBC/C OMPLE TE BLD COUNT W/DIF F nucleated red blood cells 0.0 % -0 Not Available [facility] (Lab) [address] [place], [address], 03/24/2023 13:36:07 03/24/2003/24/2023 CBC/C OMPLE TE BLD COUNT W/DIF F NRBC# 0.00 x10'3 /uL Not Available [facility] (Lab) [address] [place], [address], 03/24/2023 13:36:07 03/24/2003/25/2023 VITAM IN D 25-HY DROXY [id number] 20.2 NG/mL 30-100 low Vitam in D Statu s: Defic ient: <20 ng/mL Insuf ficie nt: 20-29 ng/mL Suffi cient : 30-10 0 ng/mL Not Available [facility] (Lab) [address] [place], [address], 03/25/2023 22:15:27 03/24/20 23 03/24/2023 IRON/ TIBC PANEL total iron binding capacity 397 mcg/d L 265-47 5 Not Available [facility] (Lab) [address] [place], [address], 03/24/2023 14:05:30 03/24/20 23 03/24/2023 IRON/ TIBC PANEL % transferrin saturation 33 % 20-55 Not Available [facility] (Lab) [address] [place], [address], 03/24/2023 14:05:30 03/24/20 23 03/24/2023 IRON/ TIBC PANEL unsaturated iron bind capacity 266 mcg/d L 126-38 2 Not Available [facility] (Lab) [address] [place] [address], [id number], 03/24/2023 14:05:30 03/24/20 23 03/24/2023 IRON/ TIBC PANEL iron 131 mcg/d L 42-175 Not Available [facility] (Lab) [address] [place] [address], [address], 03/24/2023 14:05:30 03/24/20 23 03/24/2023 TSH W/REF MALGORZATA FT4 TSH with reflex free T4 1.580 uIU/m L 0.465- 4.680 Not Available [facility] (Lab) [address] [place] [address], [address], 03/24/2023 14:28:46 03/24/2003/24/2023 VITAM IN B12 (PENG LASHAWN ) vb12 456 pg/mL 239-93 1 Not Available [facility] (Lab) [address] [place], [address], 03/24/2023 14:58:03 03/24/20 23 03/24/2023 FOLAT E, SERUM /PLAS MA folate 5.68 NG/mL 2.76-2 0.0 Not Available [facility] (Lab) [address] [place], [address], 03/24/2023 14:58:07 03/24/20 23 03/24/2023 KIEL TIN ferritin 30 NG/mL 6.24-1 37 Not Available [facility] (Lab) [address] [place], [address], 03/24/2023 14:58:18 03/24/20 23 03/24/2023 COMPR EHENS INES METAB OLIC PANEL sodium 141 mmol/ L 137-14 5 Not Available [facility] (Lab) [address] [place], [address], 03/24/2023 14:59:08 03/24/20 23 03/24/2023 COMPR EHENS INES METAB OLIC PANEL potassium 3.9 mmol/ L 3.5-5. 1 Not Available [facility] (Lab) [address] [place], [address], 03/24/2023 14:59:08 03/24/20 23 03/24/2023 COMPR EHENS INES METAB OLIC PANEL chloride 104 mmol/ L 98-107 Not Available [facility] (Lab) [address] [place], [address], 03/24/2023 14:59:08 03/24/20 23 03/24/2023 COMPR EHENS INES METAB OLIC PANEL carbon dioxide 28 mmol/ L 22-30 Not Available [facility] (Lab) [address] [place], [address], 03/24/2023 14:59:08 03/24/20 23 03/24/2023 COMPR EHENS INES METAB OLIC PANEL anion gap 12.9 mmol/ L 14-22 low Not Available [facility] (Lab) [address] [place], [address], 03/24/2023 14:59:08 03/24/20 23 03/24/2023 COMPR EHENS INES METAB OLIC PANEL glucose 116 mg/dL 70-99 high Not Available [facility] (Lab) [address] [place], [address], 03/24/2023 14:59:08 03/24/20 23 03/24/2023 COMPR EHENS INES METAB OLIC PANEL BUN 12 mg/dL 8-19 Not Available [facility] (Lab) [address] [place], [address], 03/24/2023 14:59:08 03/24/20 23 03/24/2023 COMPR EHENS INES METAB OLIC PANEL creatinine 0.74 mg/dL 0.66-1 .25 Not Available [facility] (Lab) [address] [place], [address], 03/24/2023 14:59:08 03/24/20 23 03/24/2023 COMPR EHENS INES METAB OLIC PANEL GFR >60 Refer ence Range : [place] GFR Healt hy Adult : >60 [...] calcu lator is avail able on the [facility] websi te: https ://ww w.kid randy.o rg/pr ofess ional s/kdo qi/gf r_cal culat or Not Available [facility] (Lab) [address] [place], [address], 03/24/2023 14:59:08 03/24/20 23 03/24/2023 COMPR EHENS INES METAB OLIC PANEL alkaline phosphatase 75 U/L 38-126 Not Available [facility] (Lab) [address] [place], [address], 03/24/2023 14:59:08 03/24/20 23 03/24/2023 COMPR EHENS INES METAB OLIC PANEL alanine aminotransfe rase 39 U/L 0-35 high Not Available [facility] (Lab) [address] [place], [address], 03/24/2023 14:59:08 03/24/20 23 03/24/2023 COMPR EHENS INES METAB OLIC PANEL aspartate aminotransfe rase 40 U/L 15-37 high Not Available [facility] (Lab) [address] [place], [address], 03/24/2023 14:59:08 03/24/20 23 03/24/2023 COMPR EHENS INES METAB OLIC PANEL bilirubin, total 0.40 mg/dL 0.20-1 .30 Not Available [facility] (Lab) [address] [place], [address], 03/24/2023 14:59:08 03/24/20 23 03/24/2023 COMPR EHENS INES METAB OLIC PANEL calcium 9.7 mg/dL 8.4-10 .2 Not Available [facility] (Lab) [address] [facility] [place], [address], 03/24/2023 14:59:08 03/24/20 23 03/24/2023 COMPR EHENS INES METAB OLIC PANEL total protein 6.9 g/dL 6.3-8. 2 Not Available [facility] (Lab) [address] [place], [address], 03/24/2023 14:59:08 03/24/20 23 03/24/2023 COMPR EHENS INES METAB OLIC PANEL albumin 4.2 g/dL 3.4-5. 0 Not Available [facility] (Lab) [address] [place], [address], 03/24/2023 14:59:08 03/24/20 23 03/24/2023 COMPR EHENS INES METAB OLIC PANEL globulin 2.7 g/dL 2.6-4. 2 Not Available [facility] (Lab) [address] [place], [address], 03/24/2023 14:59:08 03/24/20 23 03/24/2023 COMPR EHENS INES METAB OLIC PANEL A/G ratio 1.6 ratio 1.0-2. 0 Not Available [facility] (Lab) [address] [place], [address], 03/24/2023 14:59:08 03/24/2003/24/2023 LIPID PANEL cholesterol 248 mg/dL 140-19 9 high NIH JESSE NSUS RECOM MENDA TION FOR NAHEED STERO L: ADULT CHILD LOW RISK: <200 <170 BORDE RLINE : <200- 239 ----- HIGH RISK: >240 >200 Not Available [facility] (Lab) [address] [place], [address], 03/24/2023 14:59:15 03/24/2003/24/2023 LIPID PANEL triglyceride s 143 mg/dL 0-150 NIH JESSE NSUS REPOR T RECOM MENDA TION FOR TRIGL YCERI PERLA: ADULT CHILD LOW RISK: <150 ----- BODER LINE: 150-1 99 ----- HIGH RISK: >200 ----- Not Available [facility] (Lab) [address] [place], [address], 03/24/2023 14:59:15 03/24/20 23 03/24/2023 LIPID PANEL HDL cholesterol 59 mg/dL 40- Not Available [facility] (Lab) [address] [place], [address], 03/24/2023 14:59:15 03/24/20 23 03/24/2023 LIPID PANEL LDL cholesterol, calculated 160 mg/dL 0-130 high NIH JESSE NSUS REPOR [...] WILL NOT BE REPOR ALVIN. Not Available [facility] (Lab) [address] [place], [address], 03/24/2023 14:59:15 03/24/20 23 03/24/2023 XR, cervi samy spine , 2 or 3 view [facility] [address] [place] [address] Patien t Name: DEMAR Charlotte PRABHUMARQUES Olivia Access ion #: [id number] Sex: F : 1975 4 Dictat ed By: Cisco Quevedo Attend ing Physic saturnino: GRETEL ROMERO Physic saturnino: GRETEL ROMERO Exam Date: 2022 11:05 AM Exam Name: XR C SPINE 3V Admitt ing Diagno sis(es ): XR C SPINE 3V INDICA TION: 47 years old Female CERRVWolfgang MENDEZGIA TECHNI SAMY DATA: The follow ing views were obtain ed of the cervic al spine: Fronta l, latera l, open mouth . COMPAR YANIRA: No prior FINDIN GS: C1-T1 are visual ized on the latera l view for evalua tion of alignm ent . Cervic al curvat ure is normal . There is no spondy lolist hesis. Verteb ral body height s are mainta ined. Disk height s are narrow at C6-7. The facet joints appear normal . The dens and preden rachel space demons trate no abnorm ality. The C1-C2 articu lation appear s normal . Prever tebral soft tissue s are within normal limits . IMPRES TAL: No acute fractu re or disloc ation of the cervic al spine. Electr onical ly Signed by: Cisco Quevedo at 2022 12:27: 55 PM Page [email or web address] [place] [address] (Imaging) [address] [place], [address], 03/26/2023 17:24:22 03/24/20 23 03/24/2023 XR, thumb [facility] [address] [place] [address] Patien t Name: CHANELL MCCURDY Access ion #: [id number] Sex: F : 1975 4 Dictat ed By: Cisco Quevedo Attend [facility] Physic saturnino: GRETEL ROMERO Physic saturnino: GRETEL ROMERO Exam Date: 2022 11:09 AM Exam Name: XR FINGER /THUMB LT Admitt ing Diagno sis(es ): XR FINGER /THUMB LT, INDICA TION: 47 years old Female PAIN LT FINGER TECHNI SAMY DATA: Fronta l view of the left hand and latera l and obliqu e views of the left index finger were obtain ed. COMPAR YANIRA: No prior FINDIN GS: No fractu re is identi fied. Joint spaces are mainta ined. Alignm ent is anatom ic. Soft tissue s are within normal limits . IMPRES TAL: No acute fractu re. Electr onical ly Signed by: Cisco Quevedo at 2022 12:29: 31 PM Page 1 [email or web address] [facility] (Imaging) [address] [place], [address], 03/26/2023 17:24:23 Result Notes Documentation Provider Name and Address Organization Details Recorded Time Xr, Cervical Spine, 2 Or 3 View : [facility] [address] [place] [address] Patient Name: TWILA NINA Sex: F : 1975 Dictated By: Cisco Quevedo Attending Physician: GRETEL ROMERO Ordering Physician: GRETEL ROMERO Exam Date: 03/24/2023 11:05 AM Exam Name: XR C SPINE 3V Admitting Diagnosis(es): XR C SPINE 3V INDICATION: 47 years old Female CERRVICALGIA TECHNICAL DATA: The following views were obtained of the cervical spine: Frontal, lateral, open mouth . COMPARISON: No prior FINDINGS: C1-T1 are visualized on the lateral view for evaluation of alignment . Cervical curvature is normal. There is no spondylolisthesis. Vertebral body heights are maintained. Disk heights are narrow at C6-7. The facet joints appear normal. The dens and predental space demonstrate no abnormality. The C1-C2 articulation appears normal. Prevertebral soft tissues are within normal limits. IMPRESSION: No acute fracture or dislocation of the cervical spine. Page 1 OSWALDO Garcia [address] [facility], [facility] [address], [place], [address], [place] [facility] [employer] [facility] 03/26/2023 17:24:22 Xr, Thumb : [facility] [address] [place] [address] Patient Name: TWILA NINA [facility]: F : 1975 [id number] Dictated By: Cisco Quevedo Attending Physician: GRETEL ROMERO Ordering Physician: GRETEL ROMERO Exam Date: 03/24/2023 11:09 AM Exam Name: XR FINGER/THUMB LT Admitting Diagnosis(es): XR FINGER/THUMB LT, INDICATION: 47 years old Female PAIN LT FINGER TECHNICAL DATA: Frontal view of the left hand and lateral and oblique views of the left index finger were obtained. COMPARISON: No prior FINDINGS: No fracture is identified. Joint spaces are maintained. Alignment is anatomic. Soft tissues are within normal limits. IMPRESSION: No acute fracture. Page 1 CHAPO Garcia-Maria G [address] [place] [address], [address], [address], [facility] [place] [employer] [facility] 03/26/2023 17:24:23 Problems Name Problem SNOMED Code Status Onset Date Resolution Date Notes Provider Name and Address Organization Details Recorded Time Vitamin D deficiency 94101694 Active 2022 Not Available [facility] 22:15:20 Loss of hair 511718479 Active 2022 Not Available [facility] 3 22:15:20 Thyroid function tests abnormal 942163999 Active 2022 Not Available [facility] 3 22:15:20 Migraine 21131597 Active 2022 Not Available [facility] 3 22:15:20 Neck pain 79231470 Active 2022 Not Available [facility] 22:15:20 Obesity 714736338 Active 2022 Not Available [facility] 22:15:20 Hyperlipidemi a 84498444 Active 2022 Not Available [facility] 3 22:15:20 Iron deficiency 51821321 Active 2022 Not Available [facility] 3 22:15:20 Seasonal allergy 474092408 Active 2022 Not Available [facility] 3 22:15:20 Pain in finger 49868009 Active 2022 Not Available [facility] 22:15:19 Problem Notes None recorded. Procedures Surgical History Date Name Laterality Status Provider Name and Address Organization Details Recorded Time Ablation completed Sallie Kelley MA [facility] 01/28/2023 12:30:33 Tubal Ligation completed Sallie nguyen MA [facility] 01/28/2023 12:30:49 procedure on tendon completed Sallie Kelley MA [facility] 01/28/2023 12:31:02 Imaging Results None recorded. Procedure Notes None recorded. Medical Equipment None Reported. Allergies Allergen ID Allergen Name Allergen Category Reaction Reaction Severity Criticality Documentation Date Start Date Code Code System Note Provider Name and Address Organization Details Recorded Time 30004 ibuprofen medicatio n nausea Not available Not available 01/28/2023 5640 RxNorm JOSE Drake [facility] 12:23:35 Medications Name Sig Start Date Stop Date Status Note LastModified by Organization Details LastModified Time cyclobenz aprine 10 mg tablet TAKE 1 TABLET BY MOUTH THREE TIMES DAILY NEEDED FOR MUSCLE SPASM 03/24 completed patient advised Gretel will not fill this as she is on the butalbit al as well Not Available Not Available Not Available triamcino lone acetonide 0.5 % topical cream APPLY TOPICALL Y TO THE AFFECTED AREA TWICE DAILY 01/28 completed Not Available Not Available Not Available azithromy don 250 mg tablet 01/28 completed Not Available Not Available Not Available benzonata te 200 mg capsule TAKE 1 CAPSULE BY MOUTH THREE TIMES DAILY 01/28 completed Not Available Not Available Not Available valacyclo vir 1 gram tablet TAKE ONE TABLET BY MOUTH THREE TIMES DAILY 01/28 completed Not Available Not Available Not Available amoxicill in 600 mg-potass ium clavulana te 42.9 mg/5 mL oral suspensio n SHAKE LIQUID AND TAKE 5 ML BY MOUTH TWICE DAILY FOR 10 DAYS. DISCARD REMAINDE R 01/28 completed Not Available Not Available Not Available prednison e 20 mg tablet TAKE 1 TABLET BY MOUTH TWICE A DAY WITH FOOD FOR 5 DAYS 01/28 completed Not Available Not Available Not Available benzonata te 100 mg capsule 01/28 completed Not Available Not Available Not Available codeine 10 mg-guaife nesin 100 mg/5 mL oral liquid TAKE 5 ML BY MOUTH EVERY 6 HOURS NEEDED FOR COUGH 01/28 completed Not Available Not Available Not Available albuterol sulfate HFA 90 mcg/actua tion aerosol inhaler INHALE 1 PUFF BY MOUTH EVERY 4 HOURS NEEDED FOR SHORTNES S OF BREATH OR WHEEZING active Not Available Not Available No t Available ondansetr on 4 mg disintegr ating tablet DISSOLVE 1 TABLET IN MOUTH EVERY 6 HOURS NEEDED FOR NAUSEA FOR VOMITING 01/28 completed Not Available Not Available Not Available amoxicill in 875 mg-potass ium clavulana te 125 mg tablet TAKE 1 TABLET BY MOUTH TWICE DAILY 01/28 completed Not Available Not Available Not Available rosuvasta tin 10 mg tablet TAKE 1 TABLET BY MOUTH EVERY DAY active Not Available Not Available No t Available butalbita l active patient advised Gretel does not fill this Not Available Not Available Not Available Mounjaro 5 mg/0.5 mL subcutane ous pen injector INJECT THE CONTENTS OF 1 PEN UNDER THE SKIN EVERY 7 DAYS 01/28 completed Not Available Not Available Not Available Mounjaro 2.5 mg/0.5 mL subcutane ous pen injector INJECT 0.5 ML(2.5 MG)SUBCU TANEOUSL Y ONCE WEEKLY FOR 4 WEEKS 01/28 completed Not Available Not Available Not Available Vitals Date Recorded Body weight Body mass index (BMI) Body height Body temperature Heart rate Oxygen saturation Oxygen saturation in Arterial blood by Pulse oximetry Systolic blood pressure Diastolic blood pressure Provider Name and Address Organization Details Last Updated DateTime 3 51738.7 g 31.1 kg/m2 157.48 cm 97.7 [degF] 96 /min 98 % 98 % 126 mm[Hg] 78 mm[Hg] Sallie Kelley [place] [facility] [employer] [facility] [employer] 3 12:32:29 Date Recorded Body height Body mass index (BMI) Body weight Body temperature Heart rate Oxygen saturation Oxygen saturation in Arterial blood by Pulse oximetry Systolic blood pressure Diastolic blood pressure Provider Name and Address Organization Details Last Updated DateTime 3 157.48 cm 31.3 kg/m2 42918.3 g 97.8 [degF] 100 /min 98 % 98 % 134 mm[Hg] 78 mm[Hg] Sallie JOSE Kelley [facility] [employer] [facility] 3 11:09:18 Social History Question Answer Notes LastModified by Organizat ion Details LastModified Time Tobacco Smoking Status Never Smoker Sallie Kelley MA null, [facility] [employer] [facility] 01/28/2023 12:27:51 What Is Your Level Of Caffeine Consumption? Occasional Information not available 01/28/2023 In The 14 Days Before Symptom Onset, Have You Had Close Contact With A Laboratory-confir med COVID-19 While That Case Was Ill? No Information not available 01/28/2023 In The 14 Days Before Symptom Onset, Have You Had Close Contact With A Person Who Is Under Investigation For COVID-19 While That Person Was Ill? No Information not available 01/28/2023 What Type Of Diet Are You Following? REGULAR Information not available 01/28/2023 What Is The Highest Grade Or Level Of School You Have Completed Or The Highest Degree You Have Received? FN28535-3 Information not available 01/28/2023 Have There Been Any Changes To Your Family Or Social Situation? No Information no t available 01/28/2023 What Is The Fluoride Status Of Your Home? Unknown Information not available 01/28/2023 Are There Any Guns Present In Your Home? No Information not available 01/28/2023 Do You Use Insect Repellent Routinely? Yes Information not available 01/28/2023 [facility] 01/28/2023 What Was The Date Of Your Most Recent Tobacco Screening? 03/24/2023 Information not available 03/24/2023 Do You Have Any Pets? Yes Information not available 01/28/2023 What Is Your Relationship Status? Single Information not available 01/28/2023 Do You Have Smoke And Carbon Monoxide Detectors In Your Home? Yes Information not available 01/28/2023 Are You Passively Exposed To Smoke? No Information no t available 01/28/2023 Are There Any Smokers In Your House? No Information not available 01/28/2023 Do You Use Sunscreen Routinely? No Information not available 01/28/2023 Have You Recently Traveled Abroad? No Information not available 01/28/2023 Do You Have Any Dietary Restrictions? No Information not available 01/28/2023 Sex: Unknown Functional Status Question Answer Note LastModified by Organizat ion Details LastModified Time Do you use any illicit or recreational drugs? No Information not available 01/28/2023 What is your level of alcohol consumption? Occasional Information not available 01/28/2023 Are you currently employed? Yes Information not available 01/28/2023 Mental Status None recorded. Family History Nothing Reported. Medical History No medical history recorded. Gynecological HistoryNo gynecological history recorded. Obstetrics History GPAL:G 0 P 0 0 0 0 Past Encounters Encounter ID Performer Location Encounter Start Date Encounter Closed Date Diagnosis/Indication Diagnosis SNOMED-CT Code Diagnosis ICD10 Code Diagnosis Note [id number] Preet olivia MD [facility] [address] [facility], [facility] [address] [place] [address] 01/28/2023 12:07:17 01/28/2023 13:13:35 Vitamin D deficiency 10096897 E55.9 On OTC supplement , check labs Loss of hair 989863701 L 65.9 Check labs Get appointmen t with Dermatolog y Thyroid fu nction tests abnormal 582181983 R94.6 Check labs Advised I will not run the reverse T3 as that really does not change how we would manage her thyroid Screening for disorder 856464381 Z13.9 Screening mammography 24 453494 Z12.31 Screening for malignant neoplasm of colon 734360463 Z12.11 Migraine 88798131 G43.90 9 I have advised her that I do not write for butalbital and I cannot write for cyclobenza tomas as she is taking butalbital for the migraines. I have offered her Triptan therapy and preventati ve-she has declined as they have not worked in the past Get appointmen t with Neurology per her request ER ingrid bear Neck pain 42926985 M54.2 Get neck x-ray May consider PT pending result ER ingrid bear Wants to lose weight 170 850436 Z71.3 on compounded semaglutid e from the med spaadvised her insurance will not cover semaglutid e, so I am not able to write for this Obesity 472299554 E66.9 recommend healthy, well balanced mealsfocus on lean meats, fresh vegetables , fresh fruits, whole grainsredu ce fast/proce ssed foods or eating out to no more than 1-2 times per weekaim to get 30 min of exercise most days of the week- walking is a great choicealso recommend resistance training 2-3 times per week Adult [facility] th examination 117367137 Z00.01 Depression screening 171 617721 Z13.31 [id number] Peret olivia MD [facility] [address] [facility], [address] [place] [address] 03/24/2023 10:56:51 03/24/2023 11:29:32 Vitamin D deficiency 65880355 E55.9 On OTC supplement , check labs Loss of hair 448309585 L 65.9 Get appointmen t with Dermatolog y- has been referred to [facility] derm she will get us the records from the derm in [place] - fax number given to patientadv ised patient I don't have any medical reason to send her to infectious disease or endocrinol ogy. I can send her to allergy for allergy testing per her request. Thyroid fu nction tests abnormal 413037452 R94.6 normal on last labs 01/2023 Screening mammography 24 957993 Z12.31 Screening for malignant neoplasm of colon 898673146 Z12.11 Migraine 83338845 G43.90 9 I have advised her that I do not write for butalbital and I cannot write for cyclobenza tomas as she is taking butalbital for the migraines. I have offered her Triptan therapy and preventati ve-she has declined as they have not worked in the pastGet appointmen t with Neurology per her requestER ingrid bear Neck pain 39386922 M54.2 Get neck x-rayMay consider PT pending resultER ingrid s Wants to lose weight 170 627088 Z71.3 on compounded semaglutid e from the med spaadvised her insurance will not cover semaglutid e, so I am not able to write for this Obesity 481890141 E66.9 recommend healthy, well balanced mealsfocus on lean meats, fresh vegetables , fresh fruits, whole grainsredu ce fast/proce ssed foods or eating out to no more than 1-2 times per weekaim to get 30 min of exercise most days of the week- walking is a great choicealso recommend resistance training 2-3 times per week Hyperlipidemia 00774650 E78.5 on rosuvastat in Iron deficiency 07778764 E61.1 on OTC multivitam in with iron Seasonal allergy 5671954 04 J30.2 wants referral to 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 for allergy testing Pain in finger 40167693 M79.645 check XRTdap updated in 2017 per pt Health Concerns Section Related Observation LastModified by Organization Detai ls LastModified Time None Recorded Concern Status LastModified by Organization Details LastModified Time None Recorded Advance Directives Directive None Recorded Payers Insurance Date Sequence Insurance Name Policy Number Policy Tripathi Covered Member ID Tripathi Member ID Guarantor Name 03/27/2023 1 [facility] (MEDICAID HMO) [id number] Prabhumarquescorwin Nina [id number] Twila Maico Notes Date Note Type Note Provider Name and Address Organization Details Recorded Time 01/29/20 23 text/htm charlotte Mercado presents today to establish care. She is also due for her annual wellness/preventative orders. [facility]. 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 She also has list of labs she is requesting. She has been watching a lot of [employer] medical videos and some questions about possible issues that could be going on with her. She reports she has had hair loss for about 7 years. She had been on compounded tirzepatide and semaglutide from a weight loss/med spa since earlier this year, but the hair loss predates her use of these meds/weight loss. She has brought me an envelope of hair that she has lost. She reports she has never seen a commercial teller for this. She reports history of migraine. She tells me that tripped hands do not work. She is now currently taking butalbital and cyclobenzaprine for the migraines. These medicines were not on her list when she called us and I have advised her that I do not write for butalbital and I cannot write for cyclobenzaprine as she is taking it with the butalbital. I offered her medications that are covered by her insurance such is sumatriptan, she tells me those have not worked in the past. She was supposed to get a neurology referral from her last doctor but apparent that did not get sent. She reports a long history of migraines. She denies any neuro symptoms with these. She reports she has had multiple types of vitamin-D testing. She reports her vitamin D2 is always low but her other vitamin d levels are normal. She is taking OTC vitamin-D 2 drops for this. She reports she would like her thyroid tested. I am a little unclear from her history of she has ever had an abnormal thyroid tests in the past. Her previous doctor had ran a TSH which was normal. She is requesting TSH, T4, T3, TPO, and reverse T3. She reports these are the labs the doctor on [facility] had recommended. I have advised her that her insurance will not cover tirzepatide or semaglutide for weight loss. She reports she has been having some chronic neck pain. She was going to the chiropractor for this and after a r ough a djustment she has been having issues with her neck. When she turns her head she feels like it clicks. She reports that her previous doctor did do an x-ray but she would like that repeated. She has never done physical therapy for her neck. She denies any numbness or tingling into the extremities and denies any bladder or bowel changes. She also is requesting a l iver test a s she was told by someone online that her low vitamin-D levels could be a result of an issue with her liver. She is due for mammogram and colon screening as well as screening labs. Gretel Romero, LACQUER COATER-C [address] [facility], [address], [place], [address], [facility], [place] [employer] [facility] 01/28/2023 13:31:44 03/24/20 23 text/htm charlotte Velasco presents today for follow up. Last visit, she was complaining of neck pain. She did not get her x-ray done. She reports the pain is little bit better. She denies any bladder bowel changes, denies any saddle paresthesias, denies any numbness or tingling into the extremities. She did not do her mammogram or her colonoscopy. We had also referred her to Neurology for her migraine. She was aware that I did not write for butalbital. She has not yet made that appointment. We had also referred her to Dermatology for the hair loss. She reports she saw a commercial teller that she paid roa to see out in [place]. She tells me that he recommended she see Infectious Disease, endocrinology, immunology, and a holistic doctor to figure out her hair loss. I reminded her that I did give her referral to Dermatology locally over at [facility]. She has not yet set that up. She is requesting a referral to an 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. She wants to get allergy testing. She reports she shot her left 1st pointer finger with a nail gun about a week ago. Her tetanus was last updated in 2017. She is having some pain in that digit. Did not seek any medical care at the time of the injury. Denies any redness or drainage, there is no open wound. Gretel Romero, CHAPO-C [address] [facility], [facility] [address], [place], [address], [facility] [employer] [facility] 03/24/2023 13:24:24 OBGyn Episode No OBEpisode recorded.
--- OUTSIDE RECORDS SUMMARY | 2025-02-17 14:03 | XMS_ITS | Clinical Summary ---
Author Organization [facility] Address [address] [facility] [place] [facility] [place] [address] Care Team Providers Care Scientist Name Role Phone Francois Carlson MD Primary Care Provider [phone] Source Comments [facility],non-owned Affiliates and Associated Physician Practices is amultiple site organization consisting of ambulatory clinics and hospital sitesin [place], [place], [place] and [place]. This disclosure is being madepursuant to the Care Everywhere program and may not contain all information available regarding this patient. Last updated 18.[facility] [place] Allergies Active Allergy Reactions Criticality Noted Date Comments Ibuprofen Other High 08/18/2023 Stomach burning and irritation Qiexmtws-Qgpdzvojhz-Fmcfqt hanh Unknown Low 03/23/2024 Medications * Be [...] (Flonase) 50 MCG/ACT nasal sprayIndication s:Chronic rhinitis [place] 2 (two) sprays into each nostril once daily 16 g 11 4 Active mometasone (Elocon) 0.1 % ointment Apply to affected area on arms and fingers BID. 30 day supply. 45 g 4 Active Additional Information Patient taking differently: PRN, Apply to affected area on arms and fingers BID. 30 day supply., Reported on 04/06/2024 neomycin-polymy hanh-hc (Cortisporin) 3.5-10894-6 otic suspension Instill 4 (four) drops into both ears as directed 4 Active clotrimazole-be tamethasone (Lotrisone) 1-0.05 % cream Apply to affected area 2 times daily 15 g 4 Active fluocinonide (Lidex) 0.05 % [...] total 2 doses 6 tablet 5 Active triamcinolone acetonide (Kenalog) 0.1 % ointmentIndicat ions:Dermatitis Apply to affected area on arms, neck and ears BID. Padagis, fourgera, or perrigo brands only. 30 day supply Reasons: Skin Inflammation 454 g 1 5 Active Active Problems Problem Noted Date Diagnosed Date Other allergic contact dermatitis 02/16/2024 Multiple benign nevi 02/16/2024 Folliculitis 02/16/2024 Encounters Date Type Department Care Team Description 12/03/2024 3:10 PM CDT Office Visit [facility] - Dermatology [address] [place] [address], [place] [phone] Ya Bazzi MD Phototoxic dermatitis (Primary Dx) 12/03/2024 Travel 12/02/2024 Telephone [facility] - Dermatology [address] [place] [phone] Makeda Bernardo MD Question from Last 3 [...] on file 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 Gender Identity Not on file Sexual Orientation [...] - COLON CA SCREENING 1977 MAMMOGRAM 1977 HIV SCREENING 1992 HEPATITIS C SCREENING 11/09/1995 HEPATITIS B VACCINE (1 of 3 - 19+ 3-dose series) 1996 PAP SMEAR 1998 COVID-19 VACCINE (3 2023-2 5 season) 2024 07/30/2021, 06/24/2021 DEPRESSION SCREENING 07/14/2024 08/18/2023 INFLUENZA VACCINE (#1) 2025 DTAP/TDAP/TD VACCINES (2 - T d [...] patient's age to complete this topic Insurance [facility] Care Teams Scientist Relationship Specialty Start Date End Date Francois Carlson MD [address] [place] [id number] PCP - General Internal Medicine 08/18/23
--- OUTSIDE RECORDS SUMMARY | 2025-02-17 14:03 | XMS_ITS | Encounter Summary ---
Author Organization [facility] Address [address] [place] [address] Care Team Providers Care Emergency Room Physician Name Role Phone Mauricio Hernandez MD Primary Care Provider Encounter Details Date Type Department Care Team (Late st Contact Info) Description 02/15/2025 External Device Data [facility] ABSTRACTION Provider, Abstract NO ADDRESS ON FILE Social History Tobacco Use Types Packs/Day Years Used Date Smoking Tobacco: Never Smokeless Tobacco: Never Alcohol Use Standard Drinks/Week Comments Yes 0 (1 standard drink = 0.6 oz pur e alcohol) once every 6 months Comments Unknown Sex and Gender Information Value Date Recorded Sex Assigned at Not on file 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 Gender Identity Not on file Sexual Orientation Not on file documented as of this encounter Plan of Treatment Upcoming Encounters Date Type Department Care Team (Late st Contact Info) Description 11/14/2025 9:00 AM CDT Office Visit [facility] Internal Medicine - [address] [phone] Mauricio Hernandez MD [address] [place] [phone] documented as of this encounter Visit Diagnoses Not on filedocumented in this encounter Care Teams Emergency Room Physician Relationship Specialty Start Date End Date Mauricio Hernandez MD [address] [place] [phone] PCP - General Internal Medicine 11/08/24 documented as of this encounter
--- OUTSIDE RECORDS SUMMARY | 2025-02-17 14:03 | XMS_ITS | Encounter Summary ---
Author Organization [facility] Address [address] [place] [address] Care Team Providers Care Elastic Attacher Zigzag Name Role Phone Francois Carlson MD Primary Care Provider [phone] Reason for Visit * Reason Onset Date Comments Future Appointment 02/13/2024 Encounter Details Date Type Department Care Team (Late st Contact Info) Description 02/13/2024 Telephone [facility] - Centralized Scheduling [address] [place] [phone] Dionte Paez MD [address] OF [place]ERGY[place] [address] Future Appointment Social History Tobacco Use Types [...] on file 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
--- OUTSIDE RECORDS SUMMARY | 2025-02-17 14:03 | XMS_ITS | Clinical Summary ---
Author Organization [facility] [address] Address [address] [place] [phone] Care Team Providers Care First Assistant Manager Name Role Phone Mauricio Hernandez MD Primary Care Provider Allergies Active Allergy Reactions Criticality Noted Date Comments Ibuprofen Other (See Comments) High 08/18/2023 Stomach burning and irritation Qltniiiv-Bfnjmbskpp-I olymyxin Unknown Low 03/23/2024 Medications albuterol sulfate [...] 4 Active fluticasone propionate (FLONASE) 50 mcg/spray [place], Suspension nasal inhaler Administer 2 Sprays in [...] Encounters Date Type Department Care Team Description 02/15/2025 External Device Data ST[facility] ABSTRACTION Provider, Abstract 01/26/2025 External Device Data [facility] ABSTRACTION Provider, Abstract 01/26/2025 External Device Data [facility] ABSTRACTION Provider, Abstract 01/25/2025 External Device Data [facility] ABSTRACTION Provider, Abstract 01/12/2025 [facility] Internal Medicine [address] [phone] Mauricio Hernandez MD Follow Up 12/28/2024 External Device Data ST[facility] ABSTRACTION Provider, Abstract 12/02/2024 External Device Data [facility] ABSTRACTION Provider, Abstract 12/01/2024 External Device Data [facility] ABSTRACTION Provider, Abstract 11/30/2024 External Device Data [facility] ABSTRACTION Provider, Abstract 11/22/2024 [facility] Internal Medicine [address] [phone] Mauricio Hernandez MD Patient Communication from Last 3 Months Immunizations Immunization Administration [...] on file 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 Gender Identity Not on file Sexual [...] Description 11/14/2025 9:00 AM CDT Office Visit [facility] Internal Medicine - [address] [phone] Mauricio Hernandez MD [address] [place] [phone] Health Maintenance Due Date Last Done Comments Pre-Diabetes and Diabetes Screening 1977 Preventative Visit-Managed Medicaid 1996 HPV/Cotest (21-29) 1998 CERVICAL CANCER SCREENING 11/14/2007 HPV/Cotest (30-65) 11/14/2007 PAP SMEAR 11/14/2007 BREAST CANCER SCREENING 2017 COLORECTAL SCREENING 2022 Colorectal Cancer Screening 2022 FIT-DNA Q 3 years 2022 FIT/FOBT Q 1 year 2022 Flex Sig/CT Colonography Q 5 years 2022 INFLUENZA VACCINE (#1) 2025 11/08/2024 DTAP/TDAP/TD VACCINES (2 - Td or Tdap) 05/29/2027 Insurance [place] [place] Care Teams First Assistant Manager Relationship Specialty Start Date End Date Mauricio Hernandez MD [address] [place] [address] PCP - General Internal Medicine 11/08/24
--- OUTSIDE RECORDS SUMMARY | 2025-02-17 14:03 | XMS_ITS | Encounter Summary ---
Author Organization [facility] Address [address] [place] [address] Care Team Providers Care Singing Messenger Name Role Phone Francois Carlson MD Primary Care Provider [phone] Encounter Details Date Type Department Care Team (Late st Contact Info) Description 09/18/2023 Telephone [facility] - Allergy [address] [facility] [place] [phone] Mere Pond MD [address] [place] [address] Social History Tobacco Use Types Packs/Day Years Used Date Smoking Tobacco: Never Smokeless Tobacco: Never PHQ-2 Answer Date Recorded Patient Health Questionnaire-2 Score 0 08/18/2023 Comments Unknown Sex and Gender Information Value Date Recorded Sex Assigned at Not on file 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
--- OUTSIDE RECORDS SUMMARY | 2025-02-17 14:03 | XMS_ITS | Continuity of Care Document ---
Author Name [facility] Organization [facility] Care Team Providers Care Lift Truck Mechanic Name Role Phone [facility] Unavailable Unavailable Social History Combined list of available smoking, tobacco, and other social history from Department of Defense and Veterans Affairs facilities. Social History Type Response Date Comment Sourc e This section is an empty social history section. [facility]
--- NOTE | 2025-02-17 23:27 | P.SLEEP_ITS ---
Sleep Study - Home Unattended Date of Study: 12/29/24 Ordering Provider: Homero Landaverde APRN Interpreting Provider: Katherine Merritt MD Home Sleep Study Type: Watch PAT Height: 1.57 m Weight: 84.822 kg Body Mass Index: 34.2 Neck Circumference (inches): 15.5 [place]: 0 Reason for Sleep Study snoring, daytime hypersomnia * 11/17/2024, home sleep test showed mild obstructive sleep apnea with an apnea hypopnea index of 9.3 and lowest saturation 87% using 4% criteria; APAP was recommended. 3% criteria on prior testing = AHI 20.6. The patient received the home sleep test on December 29, and she performed the test Feb 16 download and interpretation Feb 17, 2025. Sleep History This sleep history is taken from the 11/17/2024 home sleep test. Rogelio Nina is a 49-year-old female who had a home sleep test 11/17/2024 for snoring and daytime sleepiness. She admits to snoring loudly, excessive daytime sleepiness and trouble maintaining sleep. She denies interruptions in breathing while asleep. She denies choking or gasping at night. She denies having trouble breathing on her back. She does have morning headaches. She denies having a dry or sore mouth/ throat in the morning. She denies nocturnal heartburn. She denies nocturia. She denies having trouble falling asleep. She does have difficulty staying asleep. She denies having difficulty returning to sleep if she wakes up throughout the night. She denies any hypnotic or sedative use. She denies feeling anxious about sleep. She does feel tired or sleepy during the day. She does feel tired in the morning. She does have the urge to fall asleep during the day. She does feel drowsy while driving. She denies sleep paralysis, cataplexy and hypnagogic/ hypnopompic hallucinations. She does clench or grind her teeth. She denies kicking or jerking her legs excessively. She denies having a restless feeling in her legs. She wakes with headaches in the morning she feels from her neck issues. Does feel tired during the day but doesn't nap. Her mother has sleep apnea. Normal bedtime is 11:30 p.m., falling asleep within 30 minutes. She reports getting an average of 8 hours of sleep per night. Her sleep is not restorative. She denies taking any planned naps. She denies dream enactment behavior. She denies sleep walking. Habits: Tobacco: none. Caffeine: none currently Alcohol: none Recreational substance: none PMF Past Medical History Medical History (Updated 02/20/25 @ 19:40 by Katherine Merritt MD) VALENTIN (obstructive sleep apnea) COVID-19 Difficulty swallowing Persistent cough Trigger finger (~2011) Itching Hives Chills Bronchitis Pneumonia Miscarriage Chicken pox Surgical History Surgical History History of tubal ligation (~1998) History of endometrial ablation (~2017) Family History Family History Father No known problems Mother No known problems Sibling Suicide Social History Social History Social History: Patient drinks caffeine twice weekly. Smoking status: Never smoker Second hand tobacco smoke exposure: No Alcohol intake: current Alcohol use details: Patient drinks 2 to 3 glasses of alcohol per month Substance use: never Substance use type: does not use Lack of Transportation: No Lack of Food: Never True Current Housing: I Have Housing Concerned About Future Housing: No Difficulty Paying Gas/Electric Bills: No Difficulty Paying for Meds: No Currently Unemployed: Decline to Answer Education: Associate Degree Difficulty w/ Childcare or Family Care: No Living arrangements: alone Additional living arrangements comments: Patient is Occupation/Education: occupation 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 Medications Home Medications ?Medication ?Instructions ?Recorded ?Confirmed ?Type albuterol sulfate 90 mcg/actuation 1 puff inhalation Q4H PRN Allergic 12/18/23 10/27/24 History aerosol inhaler Symptoms budesonide-formoterol HFA 80 1 inh inhalation TID PRN Allergic 12/18/23 10/27/24 History mcg-4.5 mcg/actuation aerosol Symptoms inhaler cyclobenzaprine 10 mg tablet 10 mg PO TID PRN Muscle Spasm 12/18/23 10/27/24 History famotidine 20 mg tablet 20 mg PO DAILY PRN Allergic 12/18/23 10/27/24 History Symptoms fluticasone furoate 50 1 inh inhalation DAILY PRN 12/18/23 10/27/24 History mcg/actuation blister powder for Allergic Reaction inhalation gybffjkt-enmqznsiw-ykyrdjyxh 3.5 4 drp RIGHT EAR Q8H 7 days #10 mL 03/10/24 10/27/24 Rx mg-10,000 unit/mL-1 % ear drops,susp cetirizine 10 mg tablet (Zyrtec) 10 mg PO DAILY PRN 06/22/24 10/27/24 History cholecalciferol (vitamin D3) 50 50 mcg PO DAILY #180 caps 06/22/24 10/27/24 Rx mcg (2,000 unit) capsule mecobalamin (vitamin B12) 2,500 2,500 mcg PO DAILY #90 tabs 06/22/24 10/27/24 Rx mcg chewable tablet lidocaine 5 % topical ointment 1 applic topical Q4-6H PRN pain 09/01/24 10/27/24 Rx #30 grams valacyclovir 1 gram tablet 1,000 mg PO TID 7 days #21 tabs 09/01/24 10/27/24 Rx ondansetron 4 mg disintegrating 4 mg PO Q6H PRN nausea and 09/17/24 10/27/24 Rx tablet vomiting #30 tabs tirzepatide (weight loss) 5 mg/0.5 5 mg (0.5 mL) subcut WEEKLY #2 mL 10/01/24 10/27/24 Rx mL subcutaneous solution (Zepbound) Sleep Procedure The sleep study was completed using Cuff-ProtectT a technically adequate device with seven channels: peripheral arterial tone, actigraphy, body position, snore, respiratory movement, pulse oximetry, sleep staging, and heart rate. Prior to using the device, the patient received verbal and written instructions for its application and was provided with the help desk phone number for additional telephonic instruction with 24-hour availability of qualified personnel to answer questions. The study was scored using [facility] guidelines. Sleep Architecture The total recording time is 7 hrs, 11 min. The total sleep time is 5 hrs, 56 min. Sleep latency is 18 minutes. REM latency is 32 minutes. The patient had 11 episodes of waking. Sleep architecture shows 18.1% deep sleep, 55.4% light sleep, and 26.5% stage REM. The patient spent 60.2% of total sleep time in the supine position. Sleep efficiency was 83%. Respiratory Analysis The overall AHI (pAHI 3%:) is 18.5. The central AHI is 2.3. The AHI was 12.3 in NREM and 37.1 in REM sleep. The AHI was 15.9 in Supine and 22.9 in Non-supine sleep. Percent of Rafa Gomez respirations is 0.0. Using a 4% criteria which is standard for Medicare, the apnea hypopnea index is 8.8, consistent with mild obstructive sleep apnea. Oximetry Data The oxygen desaturation index (CACHORRO 4%:) is 8.8. The mean saturation is 94%, and the lowest saturation is 86%. Time spent with saturation < 88% is 0.9 minutes. Snoring Profile Snoring average intensity is 41 dB. The patient snored above 45 decibels for 34.1 minutes, 9.6% of sleep time. Cardiac Profile The average pulse rate is 76 beats per minutes. The lowest pulse rate is 62 bpm. The highest pulse rate is 125 bpm. Cardiac rhythm analysis in sleep does not show atrial fibrillation. Assessment and Plan Assessment and Plan (1) VALENTIN (obstructive sleep apnea): Code(s): G47.33 - Obstructive sleep apnea (adult) (pediatric) Status: Acute Assessment and Plan: The patient had an overall AHI of 18.5 consistent with moderate obstructive sleep apnea and desaturation to 86% using 3% criteria. The 3% criteria is appropriate for her age, 49 years old. This is consistent with moderate obstructive sleep apnea. Using 4% criteria which is consistent with Medicare guidelines, her AHI was 11.5, consistent with mild obstructive sleep apnea. She has sleep maintenance insomnia, daytime fatigue, non restorative sleep. She had similar results on a home sleep test using WatchPat 11/17/2024. She did not want to proceed with the recommendation for autoPAP after the initial study in November. PAP remains an option, as well as a mandibular advancement device. Clinical correlation is recommended. Her BMI is 34. Weight management is advised. Clinical data suggests that weight loss of 10% can reduce the severity of respiratory events and snoring and improve AHI by as much as 25%. She had more events during REM. She had higher AHI in the prone and left lateral position. She can consider weight loss and staying off of her left side and her stomach to reduce obstructive events, Data The data obtained during this sleep study is adequate for interpretation. Certification This sleep study has been reviewed by a board certified sleep medicine physician.
[2025-02-20 19:43] VITALS: BMI 34.2
== END 2025-02-17 14:02 | disposition home or self-care (01) ==
LOC: ANHCSM 02-17 14:00
PROVIDERS: PCP Emergency Medicine; Visit Provider Nurse Practitioner Family
DX: G47.30 Sleep apnea, unspecified (principal); G47.33 Obstructive sleep apnea (adult) (pediatric)
CPT/HCPCS: 95800

== ENCOUNTER 2025-04-11 10:34 | Outpatient (CLI) | payer OTHER, SELFPAY ==
--- OUTSIDE RECORDS SUMMARY | 2025-04-11 11:12 | XMS_ITS | Clinical Summary ---
Author Organization [facility] [address] Address [address] [place] [phone] Care Team Providers Care Curriculum Designer Name Role Phone Mauricio Hernandez MD Primary Care Provider Allergies Active Allergy Reactions Criticality Noted Date Comments Ibuprofen Other (See Comments) High 08/18/2023 Stomach burning and irritation Rgcurzsp-Gseaerozud-Z olymyxin Unknown Low 03/23/2024 Medications albuterol sulfate [...] 4 Active fluticasone propionate (FLONASE) 50 mcg/spray [place], Suspension nasal inhaler Administer 2 Sprays in [...] Encounters Date Type Department Care Team Description 03/29/2025 External Device Data STL ABSTRACTION Provider, Abstract 03/25/2025 [facility] Internal [address] [phone] Mauricio Hernandez MD Needs Orders Written 03/08/2025 [facility] Internal Medicine [address] [phone] Mauricio Hernandez MD Follow Up 02/15/2025 External Device Data STL ABSTRACTION Provider, Abstract 01/26/2025 External Device Data STL ABSTRACTION Provider, Abstract 01/26/2025 External Device Data STL ABSTRACTION Provider, Abstract 01/25/2025 External Device Data [facility] ABSTRACTION Provider, Abstract 01/12/[address] [phone] Mauricio Hernandez MD Follow Up from Last 3 Months Immunizations Immunization Administration [...] on file 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 Gender Identity Not on file Sexual Orientation [...] 11/14/2025 9:00 AM CDT Office Visit [facility] Internal Medicine - [address] [phone] Mauricio Henrandez MD [address] [place] [phone] Health Maintenance Due Date Last Done Comments Pre-Diabetes and Diabetes Screening 1977 Preventative Visit-Managed Medicaid 1996 HPV/Cotest (21-29) 1998 CERVICAL CANCER SCREENING 11/14/2007 HPV/Cotest (30-65) 11/14/2007 PAP SMEAR 11/14/2007 BREAST CANCER SCREENING 2017 COLORECTAL SCREENING 2022 Colorectal Cancer Screening 2022 FIT-DNA Q 3 years 2022 FIT/FOBT Q 1 year 2022 Flex Sig/CT Colonography Q 5 years 2022 INFLUENZA VACCINE (#1) 2025 DTAP/TDAP/TD VACCINES (2 - Td or Tdap) 05/29/2027 Insurance [place] [employer] [place] Care Teams Curriculum Designer Relationship Specialty Start Date End Date Mauricio Hernandez MD [address] [place] [phone] PCP - General Internal Medicine 11/08/24
--- OUTSIDE RECORDS SUMMARY | 2025-04-11 11:12 | XMS_ITS | Encounter Summary ---
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
--- OUTSIDE RECORDS SUMMARY | 2025-04-11 11:12 | XMS_ITS | Encounter Summary ---
Author Organization [facility] Address [address] [place] [address] Care Team Providers Care Printed Circuit Boards Contact Printer Name Role Phone Francois Carlson MD Primary Care Provider + [phone] Encounter Details Date Type Department Care Team (Late st Contact Info) Description 09/18/2023 Telephone [facility] - Allergy [address] [facility] [place] [phone] Mere Pond MD [address] [place] [address] Social History Tobacco Use Types Packs/Day Years Used Date Smoking Tobacco: Never Smokeless Tobacco: Never PHQ-2 Answer Date Recorded Patient Health Questionnaire-2 Score 0 08/18/2023 Comments Unknown Sex and Gender Information Value Date Recorded Sex Assigned at Not on file 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
--- OUTSIDE RECORDS SUMMARY | 2025-04-11 11:12 | XMS_ITS | Clinical Summary ---
Author Organization [facility] Address [address] [facility] [place] [address] Care Team Providers Care Senior Director Of Strategy Name Role Phone Francois Carlson MD Primary Care Provider [phone] Source Comments [facility],non-owned Affiliates and Associated Physician Practices is amultiple site organization consisting of ambulatory clinics and hospital sitesin [place], [place], [place] and [place]. This disclosure is being madepursuant to the Care Everywhere program and may not contain all information available regarding this patient. Last updated 18.[facility] Allergies Active Allergy Reactions Criticality Noted Date Comments Ibuprofen Other High 08/18/2023 Stomach burning and irritation Ejklmujl-Bzvizmotuv-Hybflb hanh Unknown Low 03/23/2024 Medications * Be [...] (Flonase) 50 MCG/ACT nasal sprayIndication s:Chronic rhinitis [place] 2 (two) sprays into each nostril once daily 16 g 11 4 Active mometasone (Elocon) 0.1 % ointment Apply to affected area on arms and fingers BID. 30 day supply. 45 g 4 Active Additional Information Patient taking differently: PRN, Apply to affected area on arms and fingers BID. 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 Referral of patient without examination or treatment from Last 3 Months Immunizations Immunization Administration [...] Date Recorded Patient Health Questionnaire-2 Score 0 03/30/2025 Comments Unknown Sex and Gender Information Value Date Recorded Sex Assigned at Not on file 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 Care Teams Senior Director Of Strategy Relationship Specialty Start Date End Date Francois Carlson MD [address] [place] [id number] PCP - General Internal Medicine 08/18/23
--- OUTSIDE RECORDS SUMMARY | 2025-04-11 11:12 | XMS_ITS | Data Portability ---
Author Organization [place] - [facility] [employer], Main Office Address [address] [place] [address] Assessment Encounter Date Assessment Date Assessment LastModified by Organization Details LastModified Time 01/28/2023 01/28/2023 Cscope- ordered- Castillo WWE- SINGER SONGWRITER- Aris Mammogram- ordered Call office if worse, ER if life-threatening illness RTC in 1 month She voiced understanding of plan and agrees over 60 min spent with patient, over half spent on counseling, reviewing her multiple medical complaints and test request, and discussing plan of care [email or web address] Not available 01/28/2023 13:28:40 03/24/2023 03/24/2023 Cscope- ordered- Castillo WWE- SINGER SONGWRITER- Aris Mammogram- ordered Call office if worse, ER if life-threatening illness RTC in 3 months She voiced understanding of plan and agrees [email or web address] Not available 03/24/2023 13:22:26 Plan of Treatment Reminders Order Date Submit Date Provider Last Modified By Organization Details Last Modified Time Details Appointments None recorded. Lab ferritin, serum or plasma 2022 023 [facility] (Lab), [address] [place], [address], 3 14:58:18 iron + total iron-bindin g capacity (TIBC), serum 2022 023 [facility] (Lab), [address] [place], [address], 3 14:04:49 vitamin B12 + folate, serum or blood [address] (Lab), [address] [place], [address], 3 11:26:48 CBC w/ auto diff 2022 023 [facility] (Lab), [address] [place], [address], 3 13:36:07 CMP, serum or plasma 2022 023 [facility] (Lab), [address] [place], [address], 3 14:59:09 lipid panel, serum 2022 023 [facility] (Lab), [address] [place], [address], 3 14:59:16 TSH, serum or plasma 2022 023 [facility] (Lab), [address] [place], [address], 3 14:28:46 vitamin D, 25-hydroxy, total, serum [address] (Lab), [address] [place], [address], 3 11:26:47 lipid panel, serum 2022 023 [facility] (Lab), [address] [place], [address], 3 14:35:14 glycohemogl obin, total, blood 2022 023 [facility] (Lab), [address] [place], [address], 3 15:39:15 CMP, serum or plasma 2022 023 [facility] (Lab), [address] [facility] [place], [address], 3 14:35:25 CBC w/ auto diff 2022 023 [facility] (Lab), [address] [facility] [place], [address], 3 14:24:14 insulin, serum 2022 023 [facility] (Lab), [address] [facility] [place], [address], 3 12:13:16 TSH, serum or plasma 2022 023 [facility] (Lab), [address] [place], [address], 3 14:59:15 T4, free, serum 2022 023 [facility] (Lab), [address] [place], [address], 3 14:50:02 thyroid peroxidase (tpo) Ab, serum 2022 023 [facility] (Lab), [address] [place], [address], 3 10:12:58 T3, free, serum or plasma 2022 023 [facility] (Lab), [address] [place], [address], 3 14:50:06 iron + total iron-bindin g capacity (TIBC), serum 2022 023 [facility] (Lab), [address] [place], [address], 3 14:34:38 vitamin B12 + folate, serum or blood [address] (Lab), [address] [place], [address], 3 09:30:15 ferritin, serum or plasma [facility]22 [facility]23 [facility] [address] [place], [address], 3 15:10:05 vitamin D, 25-hydroxy, total, serum [address] (Lab), [address] [place], [address], 3 09:30:14 Referral chartered accountant referral [email or web address] [facility], [address] [place] [address], [address], 4 09:26:[address] referral [email or web address] [facility], [address] [place] [address], [address], 4 09:26:19 neurologist referral 2022 023 leo Reynoso MD, [facility] [address], [place], [address], 4 09:26:[address] referral 2022 023 [email or web address], [address] [place] [address], [address], 4 09:26:16 neurologist referral 2022 023 leo Reynoso MD, [address], [place], [address], 4 09:26:17 Procedures colonoscopy screening (PROC) 2022 023 leo Castillo MD, [address], [facility] [address], [place], [address], 3 09:05:48 colonoscopy screening (PROC) 2022 023 leo Castillo MD, [address], [facility] [address], [place], [address], 3 09:05:47 Surgeries None recorded. Imaging MAMMO, screening, bilateral [address] ([facility]), [address] [place], [address], 3 10:43:44 XR, cervical spine, 2 or 3 view 2022 023 [facility] ([facility]), [address] [place], [address], 3 13:30:07 XR, finger(s), 2 or more view - left first (pointer) finger [address] ([facility]), [address] [place], [address], 3 10:43:44 XR, cervical spine, 2 or 3 view [address] ([facility]), [address] [place], [address], 3 10:43:43 MAMMO, screening, bilateral [address] ([facility]), [address] [place], [address], 3 10:43:43 Medication Orders None recorded. Patient TargetsNo targets recorded. Patient Instructions Encounter Date Encounter Id Patient Instructions Last Modified By Organization Details Last Modified Time 01/28/2023 [id number] INFLUENZA VACCIN E Next vaccination to be [...] indicated GLUCOSE SCREENING Ordered LIPID SCREENING Ordered [email or web address] Not available 01/28/2023 13:31:09 Reason for Referral Key Cutter Referral for L oss of hair Referring Physician: Gretel Romero, Internal Medicine, Encounter Date: 01/28/2023 Neurologist Referral for Bernardino maciele Referring Physician: Gretel Romero Internal Medicine, Encounter Date: 01/28/2023 Neurologist Referral for Bernardino angie Referring Physician: Gretel Romero Internal Medicine, Encounter Date: 03/24/2023 Key Cutter Referral for L oss of hair Referring Physician: Gretel Romero Internal Medicine, Encounter Date: 03/24/2023 Relations Coordinator Referral for Seaso nal allergy Referring Physician: Gretel Romero Internal Medicine, Encounter Date: 03/24/2023 Results Created Date Observation Date Name Description Value Unit Range Abnormal Flag Note LastModifiedBy Organization Detail LastModifiedTime 01/29/20 23 01/28/2023 CBC/C OMPLE TE BLD COUNT W/DIF F white blood cells 6.7 x10'3 /uL 4.2-10 .8 Not Available [facility] (Lab) [address] [place], [address], 01/28/2023 14:24:14 01/29/20 23 01/28/2023 CBC/C OMPLE TE BLD COUNT W/DIF F red blood cells 5.20 x10'6 /uL 3.80-5 .20 Not Available [facility] (Lab) [address] [place], [address], 01/28/2023 14:24:14 01/29/20 23 01/28/2023 CBC/C OMPLE TE BLD COUNT W/DIF F hemoglobin 15.1 g/dL 12.0-1 5.6 Not Available [facility] (Lab) [address] [place], [address], 01/28/2023 14:24:14 01/29/20 23 01/28/2023 CBC/C OMPLE TE BLD COUNT W/DIF F hematocrit 46.7 % 35.7-4 5.7 high Not Available [facility] (Lab) [address] [place], [address], 01/28/2023 14:24:14 01/29/20 23 01/28/2023 CBC/C OMPLE TE BLD COUNT W/DIF F mean red cell volume 89.8 fL 82.0-9 9.0 Not Available [facility] (Lab) [address] [place], [address], 01/28/2023 14:24:14 01/29/20 23 01/28/2023 CBC/C OMPLE TE BLD COUNT W/DIF F mean red cell hemoglobin 29.0 pg 27.0-3 3.0 Not Available [facility] (Lab) [address] [place], [address], 01/28/2023 14:24:14 01/29/20 23 01/28/2023 CBC/C OMPLE TE BLD COUNT W/DIF F mean RBC HGB concentratio n 32.3 g/dL 31.0-3 6.0 Not Available [facility] (Lab) [address] [place], [address], 01/28/2023 14:24:14 01/29/2001/28/2023 CBC/C OMPLE TE BLD COUNT W/DIF F red cell distribution width 12.5 % 11.8-1 5.5 Not Available [facility] (Lab) [address] [place], [address], 01/28/2023 14:24:14 01/29/20 23 01/28/2023 CBC/C OMPLE TE BLD COUNT W/DIF F platelets 275 x10'3 /uL 150-40 0 Not Available [facility] (Lab) [address] [place], [address], 01/28/2023 14:24:14 01/29/20 23 01/28/2023 CBC/C OMPLE TE BLD COUNT W/DIF F mean platelet volume 11.0 fL 9.0-12 .4 Not Available [facility] (Lab) [address] [place], [address], 01/28/2023 14:24:14 01/29/20 23 01/28/2023 CBC/C OMPLE TE BLD COUNT W/DIF F neutrophils 55.9 % 39.0-7 2.0 Not Available [facility] (Lab) [address] [place], [address], 01/28/2023 14:24:14 01/29/2001/28/2023 CBC/C OMPLE TE BLD COUNT W/DIF F lymphocytes 33.4 % 16.0-4 7.0 Not Available [facility] (Lab) [address] [place], [address], 01/28/2023 14:24:14 01/29/20 23 01/28/2023 CBC/C OMPLE TE BLD COUNT W/DIF F monocytes 6.1 % 5.0-12 .0 Not Available [facility] (Lab) [address] [place], [address], 01/28/2023 14:24:14 01/29/2001/28/2023 CBC/C OMPLE TE BLD COUNT W/DIF F eosinophils 3.6 % 1.0-7. 0 Not Available [facility] (Lab) [address] [place], [address], 01/28/2023 14:24:14 01/29/20 23 01/28/2023 CBC/C OMPLE TE BLD COUNT W/DIF F basophils 0.7 % 0.0-2. 0 Not Available [facility] (Lab) [address] [place], [address], 01/28/2023 14:24:14 01/29/20 23 01/28/2023 CBC/C OMPLE TE BLD COUNT W/DIF F immature granulocytes 0.3 % 0.00-0 .50 Not Available [facility] (Lab) [address] [place], [address], 01/28/2023 14:24:14 01/29/20 23 01/28/2023 CBC/C OMPLE TE BLD COUNT W/DIF F neutrophils, absolute count 3.72 x10'3 /uL 1.5-8. 0 Not Available [facility] (Lab) [address] [place], [address], 01/28/2023 14:24:14 01/29/20 23 01/28/2023 CBC/C OMPLE TE BLD COUNT W/DIF F lymphocytes, absolute count 2.23 x10'3 /uL 1.07-3 .43 Not Available [facility] (Lab) [address] [place], [address], 01/28/2023 14:24:14 01/29/20 23 01/28/2023 CBC/C OMPLE TE BLD COUNT W/DIF F monocytes, absolute count 0.41 x10'3 /uL 0.29-0 .99 Not Available [facility] (Lab) [address] [place], [address], 01/28/2023 14:24:14 01/29/20 23 01/28/2023 CBC/C OMPLE TE BLD COUNT W/DIF F eosinophils, absolute count 0.24 x10'3 /uL 0.02-0 .53 Not Available [facility] (Lab) [address] [place], [address], 01/28/2023 14:24:14 01/29/20 23 01/28/2023 CBC/C OMPLE TE BLD COUNT W/DIF F basophils, absolute count 0.05 x10'3 /uL 0.01-0 .08 Not Available [facility] (Lab) [address] [place], [address], 01/28/2023 14:24:14 01/29/20 23 01/28/2023 CBC/C OMPLE TE BLD COUNT W/DIF F immature granulocytes ,absolute 0.02 x10'3 /uL 0.00-0 .05 Not Available [facility] (Lab) [address] [place], [address], 01/28/2023 14:24:14 01/29/20 23 01/28/2023 CBC/C OMPLE TE BLD COUNT W/DIF F nucleated red blood cells 0.0 % -0 Not Available [facility] (Lab) [address] [place], [address], 01/28/2023 14:24:14 01/29/20 23 01/28/2023 CBC/C OMPLE TE BLD COUNT W/DIF F NRBC# 0.00 x10'3 /uL Not Available [facility] (Lab) [address] [place], [address], 01/28/2023 14:24:14 01/29/20 23 01/28/2023 IRON/ TIBC PANEL total iron binding capacity 356 mcg/d L 265-47 5 Not Available [facility] (Lab) [address] [place], [address], 01/28/2023 14:49:25 01/29/20 23 01/28/2023 IRON/ TIBC PANEL % transferrin saturation 19 % 20-55 low Not Available [facility] (Lab) [address] [place], [address], 01/28/2023 14:49:25 01/29/20 23 01/28/2023 IRON/ TIBC PANEL unsaturated iron bind capacity 287 mcg/d L 126-38 2 Not Available [facility] (Lab) [address] [place], [address], 01/28/2023 14:49:25 01/29/20 23 01/28/2023 IRON/ TIBC PANEL iron 69 mcg/d L 42-175 Not Available [facility] (Lab) [address] [place], [address], 01/28/2023 14:49:25 01/29/20 23 01/28/2023 LIPID PANEL cholesterol 253 mg/dL 140-19 9 high NIH JESSE NSUS RECOM MENDA TION FOR NAHEED STERO L: ADULT CHILD LOW RISK: <200 <170 BORDE RLINE : <200- 239 ----- HIGH RISK: >240 >200 Not Available [facility] (Lab) [address] [place], [address], 01/28/2023 14:35:14 01/29/20 23 01/28/2023 LIPID PANEL triglyceride s 101 mg/dL 0-150 NIH JESSE NSUS REPOR T RECOM MENDA TION FOR TRIGL YCERI PERLA: ADULT CHILD LOW RISK: <150 ----- BODER LINE: 150-1 99 ----- HIGH RISK: >200 ----- Not Available [facility] (Lab) [address] [place], [address], 01/28/2023 14:35:14 01/29/20 23 01/28/2023 LIPID PANEL HDL cholesterol 65 mg/dL 40- Not Available [facility] (Lab) [address] [facility] [place], [address], 01/28/2023 14:35:14 01/29/20 23 01/28/2023 LIPID PANEL [...] WILL NOT BE REPOR ALVIN. Not Available [facility] (Lab) [address] [place], [address], 01/28/2023 14:35:14 01/29/20 23 01/28/2023 COMPR EHENS INES METAB OLIC PANEL sodium 142 mmol/ L 137-14 5 Not Available [facility] (Lab) [address] [place], [address], 01/28/2023 14:35:25 01/29/20 23 01/28/2023 COMPR EHENS INES METAB OLIC PANEL potassium 4.0 mmol/ L 3.5-5. 1 Not Available [facility] (Lab) [address] [place], [address], 01/28/2023 14:35:25 01/29/20 23 01/28/2023 COMPR EHENS INES METAB OLIC PANEL chloride 104 mmol/ L 98-107 Not Available [facility] (Lab) [address] [place], [address], 01/28/2023 14:35:25 01/29/20 23 01/28/2023 COMPR EHENS INES METAB OLIC PANEL carbon dioxide 26 mmol/ L 22-30 Not Available [facility] (Lab) [address] [place], [address], 01/28/2023 14:35:25 01/29/20 23 01/28/2023 COMPR EHENS INES METAB OLIC PANEL anion gap 16.0 mmol/ L 14-22 Not Available [facility] (Lab) [address] [place], [address], 01/28/2023 14:35:25 01/29/20 23 01/28/2023 COMPR EHENS INES METAB OLIC PANEL glucose 82 mg/dL 70-99 Not Available [facility] (Lab) [address] [place], [address], 01/28/2023 14:35:25 01/29/20 23 01/28/2023 COMPR EHENS INES METAB OLIC PANEL BUN 10 mg/dL 8-19 Not Available [facility] (Lab) [address] [place], [address], 01/28/2023 14:35:25 01/29/20 23 01/28/2023 COMPR EHENS INES METAB OLIC PANEL creatinine 0.76 mg/dL 0.66-1 .25 Not Available [facility] (Lab) [address] [place], [address], 01/28/2023 14:35:25 01/29/20 23 01/28/2023 COMPR EHENS INES METAB OLIC PANEL GFR >60 Refer ence Range : [place] ge GFR Healt hy Adult : >60 [...] calcu lator is avail able on the [facility] websi te: [email or web address] :[email or web address] [email or web address] veda/pr ofess ional s/kdo qi/gf r_cal culat or Not Available [facility] (Lab) [address] [place], [address], 01/28/2023 14:35:25 01/29/20 23 01/28/2023 COMPR EHENS INES METAB OLIC PANEL alkaline phosphatase 68 U/L 38-126 Not Available [facility] (Lab) [address] [place], [address], 01/28/2023 14:35:25 01/29/20 23 01/28/2023 COMPR EHENS INES METAB OLIC PANEL alanine aminotransfe rase 19 U/L 0-35 Not Available [facility] (Lab) [address] [place], [address], 01/28/2023 14:35:25 01/29/20 23 01/28/2023 COMPR EHENS INES METAB OLIC PANEL aspartate aminotransfe rase 28 U/L 15-37 Not Available [facility] (Lab) [address] [place], [address], 01/28/2023 14:35:25 01/29/20 23 01/28/2023 COMPR EHENS INES METAB OLIC PANEL bilirubin, total 0.50 mg/dL 0.20-1 .30 Not Available [facility] (Lab) [address] [place], [address], 01/28/2023 14:35:25 01/29/20 23 01/28/2023 COMPR EHENS INES METAB OLIC PANEL calcium 9.8 mg/dL 8.4-10 .2 Not Available [facility] (Lab) [address] [place], [address], 01/28/2023 14:35:25 01/29/20 23 01/28/2023 COMPR EHENS INES METAB OLIC PANEL total protein 8.3 g/dL 6.3-8. 2 high Not Available [facility] (Lab) [address] [place], [address], 01/28/2023 14:35:25 01/29/20 23 01/28/2023 COMPR EHENS INES METAB OLIC PANEL albumin 4.9 g/dL 3.4-5. 0 Not Available [facility] (Lab) [address] [place], [address], 01/28/2023 14:35:25 01/29/20 23 01/28/2023 COMPR EHENS INES METAB OLIC PANEL globulin 3.4 g/dL 2.6-4. 2 Not Available [facility] (Lab) [address] [place], [address], 01/28/2023 14:35:25 01/29/20 23 01/28/2023 COMPR EHENS INES METAB OLIC PANEL A/G ratio 1.4 ratio 1.0-2. 0 Not Available [facility] (Lab) [address] [place], [address], 01/28/2023 14:35:25 01/29/20 23 01/28/2023 VITAM IN D 25-HY DROXY [id number] 31.0 NG/mL 30-100 Vitam in D Statu s: Defic ient: <20 ng/mL Insuf ficie nt: 20-29 ng/mL Suffi cient : 30-10 0 ng/mL Not Available [facility] (Lab) [address] [place], [address], 01/28/2023 14:48:45 01/29/20 23 01/28/2023 T4 FREE free T4 1.26 NG/dL 0.78-2 .19 Not Available [facility] (Lab) [address] [place], [address], 01/28/2023 14:50:02 01/29/20 23 01/28/2023 T3 FREE free T3 3.0 pg/mL 2.77-5 .27 Not Available [facility] (Lab) [address] [place], [address], 01/28/2023 14:50:06 01/29/20 23 01/28/2023 TSH thyroid-stim ulating hormone 1.160 uIU/m L 0.465- 4.680 Not Available [facility] (Lab) [address] [place], [address], 01/28/2023 14:59:14 01/29/20 23 01/28/2023 KIEL TIN ferritin 48 NG/mL 6.24-1 37 Not Available [facility] (Lab) [address] [place], [address], 01/28/2023 15:10:05 01/29/20 23 01/28/2023 HEMOG LOBIN A1C HA1C 5.2 % 4.0-6. 0 Diabe hannah Scree elva Crite gary: <5.7% Consi stent with absen ce of diabe hannah 5.7-6 .4% Consi stent with incre ased risk for diabe hannah (pred iabet es) >OR=6 .5% Consi stent with diabe hannah REFER ENCE: Diabe hannah Care 2016, 39(Castillo ppl.1 ):s13 -s22 Not Available [facility] (Lab) [address] [place], [address], 01/28/2023 15:39:15 01/29/20 23 01/28/2023 VITAM IN B12 (PENG LASHAWN ) vb12 514 pg/mL 239-93 1 Not Available [facility] (Lab) [address] [place], [address], 01/28/2023 17:09:31 01/29/20 23 01/28/2023 FOLAT E, SERUM /PLAS MA folate 4.25 NG/mL 2.76-2 0.0 Not Available [facility] (Lab) [address] [place], [address], 01/28/2023 16:17:08 01/29/20 23 01/29/2023 THYRO ID PEROX IDASE (TPO) AB thyroid peroxidase (tpo) Ab 11 IU/mL 0-34 Perfo rmed at: - [facility] [address] [place] [address] Lab Direc tor: Misael stafford PhD, Phone : [phone] Not Available [facility] (Lab) [address] [place], [address], 01/29/2023 10:12:58 01/29/20 23 01/29/2023 INSUL IN insulin 4.3 uIU/m L 2.6-24 .9 Perfo rmed at: - [facility] [address] [place] [address] Lab Direc tor: Misael stafford PhD, Phone : [phone] Not Available [facility] (Lab) [address] [place], [address], 01/29/2023 12:13:16 03/24/20 23 03/24/2023 CBC/C OMPLE TE BLD COUNT W/DIF F white blood cells 6.2 x10'3 /uL 4.2-10 .8 Not Available [facility] (Lab) [address] [facility] [place], [address], 03/24/2023 13:36:07 03/24/20 23 03/24/2023 CBC/C OMPLE TE BLD COUNT W/DIF F red blood cells 4.72 x10'6 /uL 3.80-5 .20 Not Available [facility] (Lab) [address] [place], [address], 03/24/2023 13:36:07 03/24/20 23 03/24/2023 CBC/C OMPLE TE BLD COUNT W/DIF F hemoglobin 13.8 g/dL 12.0-1 5.6 Not Available [facility] (Lab) [address] [place], [address], 03/24/2023 13:36:07 03/24/20 23 03/24/2023 CBC/C OMPLE TE BLD COUNT W/DIF F hematocrit 43.6 % 35.7-4 5.7 Not Available [facility] (Lab) [address] [place], [address], 03/24/2023 13:36:07 03/24/20 23 03/24/2023 CBC/C OMPLE TE BLD COUNT W/DIF F mean red cell volume 92.4 fL 82.0-9 9.0 Not Available [facility] (Lab) [address] [place], [address], 03/24/2023 13:36:07 03/24/20 23 03/24/2023 CBC/C OMPLE TE BLD COUNT W/DIF F mean red cell hemoglobin 29.2 pg 27.0-3 3.0 Not Available [facility] (Lab) [address] [place], [address], 03/24/2023 13:36:07 03/24/20 23 03/24/2023 CBC/C OMPLE TE BLD COUNT W/DIF F mean RBC HGB concentratio n 31.7 g/dL 31.0-3 6.0 Not Available [facility] (Lab) [address] [facility] [place] [place], [address], 03/24/2023 13:36:07 03/24/20 23 03/24/2023 CBC/C OMPLE TE BLD COUNT W/DIF F red cell distribution width 12.7 % 11.8-1 5.5 Not Available [facility] (Lab) [address] [facility] [place] [place], [address], 03/24/2023 13:36:07 03/24/20 23 03/24/2023 CBC/C OMPLE TE BLD COUNT W/DIF F platelets 304 x10'3 /uL 150-40 0 Not Available [facility] (Lab) [address] [place], [address], 03/24/2023 13:36:07 03/24/20 23 03/24/2023 CBC/C OMPLE TE BLD COUNT W/DIF F mean platelet volume 11.3 fL 9.0-12 .4 Not Available [facility] (Lab) [address] [place], [address], 03/24/2023 13:36:07 03/24/20 23 03/24/2023 CBC/C OMPLE TE BLD COUNT W/DIF F neutrophils 59.8 % 39.0-7 2.0 Not Available [facility] (Lab) [address] [place], [address], 03/24/2023 13:36:07 03/24/20 23 03/24/2023 CBC/C OMPLE TE BLD COUNT W/DIF F lymphocytes 29.1 % 16.0-4 7.0 Not Available [facility] (Lab) [address] [place], [address], 03/24/2023 13:36:07 03/24/20 23 03/24/2023 CBC/C OMPLE TE BLD COUNT W/DIF F monocytes 5.8 % 5.0-12 .0 Not Available [facility] (Lab) [address] [place], [address], 03/24/2023 13:36:07 03/24/20 23 03/24/2023 CBC/C OMPLE TE BLD COUNT W/DIF F eosinophils 4.0 % 1.0-7. 0 Not Available [facility] (Lab) [address] [place], [address], 03/24/2023 13:36:07 03/24/20 23 03/24/2023 CBC/C OMPLE TE BLD COUNT W/DIF F basophils 0.8 % 0.0-2. 0 Not Available [facility] (Lab) [address] [place], [address], 03/24/2023 13:36:07 03/24/20 23 03/24/2023 CBC/C OMPLE TE BLD COUNT W/DIF F immature granulocytes 0.5 % 0.00-0 .50 Not Available [facility] (Lab) [address] [place], [address], 03/24/2023 13:36:07 03/24/20 23 03/24/2023 CBC/C OMPLE TE BLD COUNT W/DIF F neutrophils, absolute count 3.73 x10'3 /uL 1.5-8. 0 Not Available [facility] (Lab) [address] [place], [address], 03/24/2023 13:36:07 03/24/20 23 03/24/2023 CBC/C OMPLE TE BLD COUNT W/DIF F lymphocytes, absolute count 1.81 x10'3 /uL 1.07-3 .43 Not Available [facility] (Lab) [address] [place], [address], 03/24/2023 13:36:07 03/24/20 23 03/24/2023 CBC/C OMPLE TE BLD COUNT W/DIF F monocytes, absolute count 0.36 x10'3 /uL 0.29-0 .99 Not Available [facility] (Lab) [address] [place], [address], 03/24/2023 13:36:07 03/24/20 23 03/24/2023 CBC/C OMPLE TE BLD COUNT W/DIF F eosinophils, absolute count 0.25 x10'3 /uL 0.02-0 .53 Not Available [facility] (Lab) [address] [place], [address], 03/24/2023 13:36:07 03/24/20 23 03/24/2023 CBC/C OMPLE TE BLD COUNT W/DIF F basophils, absolute count 0.05 x10'3 /uL 0.01-0 .08 Not Available [facility] (Lab) [address] [place], [address], 03/24/2023 13:36:07 03/24/20 23 03/24/2023 CBC/C OMPLE TE BLD COUNT W/DIF F immature granulocytes ,absolute 0.03 x10'3 /uL 0.00-0 .05 Not Available [facility] (Lab) [address] [place], [address], 03/24/2023 13:36:07 03/24/20 23 03/24/2023 CBC/C OMPLE TE BLD COUNT W/DIF F nucleated red blood cells 0.0 % -0 Not Available [facility] (Lab) [address] [place], [address], 03/24/2023 13:36:07 03/24/20 23 03/24/2023 CBC/C OMPLE TE BLD COUNT W/DIF F NRBC# 0.00 x10'3 /uL Not Available [facility] (Lab) [address] [place], [address], 03/24/2023 13:36:07 03/24/20 23 03/25/2023 VITAM IN D 25-HY DROXY vd25oh 20.2 NG/mL 30-100 low Vitam in D Statu s: Defic ient: <20 ng/mL Insuf ficie nt: 20-29 ng/mL Suffi cient : 30-10 0 ng/mL Not Available [facility] (Lab) [address] [place], [address], 03/25/2023 22:15:27 03/24/20 23 03/24/2023 IRON/ TIBC PANEL total iron binding capacity 397 mcg/d L 265-47 5 Not Available [facility] (Lab) [address] [place], [address], 03/24/2023 14:05:30 03/24/20 23 03/24/2023 IRON/ TIBC PANEL % transferrin saturation 33 % 20-55 Not Available [facility] (Lab) [address] [place], [address], 03/24/2023 14:05:30 03/24/20 23 03/24/2023 IRON/ TIBC PANEL unsaturated iron bind capacity 266 mcg/d L 126-38 2 Not Available [facility] (Lab) [address] [place], [address], 03/24/2023 14:05:30 03/24/20 23 03/24/2023 IRON/ TIBC PANEL iron 131 mcg/d L 42-175 Not Available [facility] (Lab) [address] [place], [address], 03/24/2023 14:05:30 03/24/2003/24/2023 TSH W/REF MALGORZATA FT4 TSH with reflex free T4 1.580 uIU/m L 0.465- 4.680 Not Available [facility] (Lab) [address] [place] [address], [address], 03/24/2023 14:28:46 03/24/2003/24/2023 VITAM IN B12 (PENG LASHAWN ) vb12 456 pg/mL 239-93 1 Not Available [facility] (Lab) [address] [place], [address], 03/24/2023 14:58:03 03/24/20 23 03/24/2023 FOLAT E, SERUM /PLAS MA folate 5.68 NG/mL 2.76-2 0.0 Not Available [facility] (Lab) [address] [place], [address], 03/24/2023 14:58:07 03/24/20 23 03/24/2023 KIEL TIN ferritin 30 NG/mL 6.24-1 37 Not Available [facility] (Lab) [address] [place], [address], 03/24/2023 14:58:18 03/24/20 23 03/24/2023 COMPR EHENS INES METAB OLIC PANEL sodium 141 mmol/ L 137-14 5 Not Available [facility] (Lab) [address] [place], [address], 03/24/2023 14:59:08 03/24/20 23 03/24/2023 COMPR EHENS INES METAB OLIC PANEL potassium 3.9 mmol/ L 3.5-5. 1 Not Available [facility] (Lab) [address] [place], [address], 03/24/2023 14:59:08 03/24/20 23 03/24/2023 COMPR EHENS INES METAB OLIC PANEL chloride 104 mmol/ L 98-107 Not Available [facility] (Lab) [address] [place], [address], 03/24/2023 14:59:08 03/24/20 23 03/24/2023 COMPR EHENS INES METAB OLIC PANEL carbon dioxide 28 mmol/ L 22-30 Not Available [facility] (Lab) [address] [place], [address], 03/24/2023 14:59:08 03/24/20 23 03/24/2023 COMPR EHENS INES METAB OLIC PANEL anion gap 12.9 mmol/ L 14-22 low Not Available [facility] (Lab) [address] [place], [address], 03/24/2023 14:59:08 03/24/20 23 03/24/2023 COMPR EHENS INES METAB OLIC PANEL glucose 116 mg/dL 70-99 high Not Available [facility] (Lab) [address] [place], [address], 03/24/2023 14:59:08 03/24/20 23 03/24/2023 COMPR EHENS INES METAB OLIC PANEL BUN 12 mg/dL 8-19 Not Available [facility] (Lab) [address] [place], [address], 03/24/2023 14:59:08 03/24/20 23 03/24/2023 COMPR EHENS INES METAB OLIC PANEL creatinine 0.74 mg/dL 0.66-1 .25 Not Available [facility] (Lab) [address] [place], [address], 03/24/2023 14:59:08 03/24/20 23 03/24/2023 COMPR EHENS INES METAB OLIC PANEL GFR >60 Refer ence Range : [place] ge GFR Healt hy Adult : >60 [...] calcu lator is avail able on the [facility] websi te: https ://ww w.kid randy.o rg/pr ofess ional s/kdo qi/gf r_cal culat or Not Available [facility] (Lab) [address] [place], [address], 03/24/2023 14:59:08 03/24/20 23 03/24/2023 COMPR EHENS INES METAB OLIC PANEL alkaline phosphatase 75 U/L 38-126 Not Available [facility] (Lab) [address] [place], [address], 03/24/2023 14:59:08 03/24/20 23 03/24/2023 COMPR EHENS INES METAB OLIC PANEL alanine aminotransfe rase 39 U/L 0-35 high Not Available [facility] (Lab) [address] [place], [address], 03/24/2023 14:59:08 03/24/20 23 03/24/2023 COMPR EHENS INES METAB OLIC PANEL aspartate aminotransfe rase 40 U/L 15-37 high Not Available [facility] (Lab) [address] [place], [address], 03/24/2023 14:59:08 03/24/20 23 03/24/2023 COMPR EHENS INES METAB OLIC PANEL bilirubin, total 0.40 mg/dL 0.20-1 .30 Not Available [facility] (Lab) [address] [place], [address], 03/24/2023 14:59:08 03/24/20 23 03/24/2023 COMPR EHENS INES METAB OLIC PANEL calcium 9.7 mg/dL 8.4-10 .2 Not Available [facility] (Lab) [address] [place], [address], 03/24/2023 14:59:08 03/24/20 23 03/24/2023 COMPR EHENS INES METAB OLIC PANEL total protein 6.9 g/dL 6.3-8. 2 Not Available [facility] (Lab) [address] [place], [address], 03/24/2023 14:59:08 03/24/20 23 03/24/2023 COMPR EHENS INES METAB OLIC PANEL albumin 4.2 g/dL 3.4-5. 0 Not Available [facility] (Lab) [address] [place], [address], 03/24/2023 14:59:08 03/24/20 23 03/24/2023 COMPR EHENS INES METAB OLIC PANEL globulin 2.7 g/dL 2.6-4. 2 Not Available [facility] (Lab) [address] [place], [address], 03/24/2023 14:59:08 03/24/2003/24/2023 COMPR EHENS INES METAB OLIC PANEL A/G ratio 1.6 ratio 1.0-2. 0 Not Available [facility] (Lab) [address] [place], [address], 03/24/2023 14:59:08 03/24/2003/24/2023 LIPID PANEL cholesterol 248 mg/dL 140-19 9 high NIH JESSE NSUS RECOM MENDA TION FOR NAHEED STERO L: ADULT CHILD LOW RISK: <200 <170 BORDE RLINE : <200- 239 ----- HIGH RISK: >240 >200 Not Available [facility] (Lab) [address] [place], [address], 03/24/2023 14:59:15 03/24/20 23 03/24/2023 LIPID PANEL triglyceride s 143 mg/dL 0-150 NIH JESSE NSUS REPOR T RECOM MENDA TION FOR TRIGL YCERI PERLA: ADULT CHILD LOW RISK: <150 ----- BODER LINE: 150-1 99 ----- HIGH RISK: >200 ----- Not Available [facility] (Lab) [address] [place], [address], 03/24/2023 14:59:15 03/24/20 23 03/24/2023 LIPID PANEL HDL cholesterol 59 mg/dL 40- Not Available [facility] (Lab) [address] [place], [address], 03/24/2023 14:59:15 03/24/20 23 03/24/2023 LIPID PANEL [...] WILL NOT BE REPOR ALVIN. Not Available [facility] (Lab) [address] [place], [address], 03/24/2023 14:59:15 03/24/20 23 03/24/2023 XR, cervi samy spine , 2 or 3 view [facility] [address] [facility] [place] [address] Patien t Name: CHANELL MCCURDY Access ion #: [id number] Sex: F : 1975 4 Dictat [...] at 2022 12:27: 55 PM Page [email or web address] [place] [address] (Imaging) [address] [place], [address], 03/26/2023 17:24:22 03/24/20 23 03/24/2023 XR, thumb [facility] [address] [place] [address] Patien t Name: CHANELL MCCURDY Access ion #: [id number] Sex: F : 1975 4 Dictat [...] at 2022 12:29: 31 PM Page 1 [email or web address] [facility] (Imaging) [address] [place], [address], 03/26/2023 17:24:23 Result Notes Documentation Provider Name and Address Organization Details Recorded Time Xr, Cervical Spine, 2 Or 3 View : [facility] [address] [place] [address] Patient Name: TWILA NINA Sex: F : [...] cervical spine. Page 1 OSWALDO Garcia [address] [facility] [address], [address], [facility] [employer] [facility] 03/26/2023 17:24:22 Xr, Thumb : [facility] [address] [place] [address] Patient Name: TWILA NINA Sex: F : [...] limits. IMPRESSION: No acute fracture. Page 1 Gretel Romero, TELEGRAPH AND TELETYPE OPERATOR-C [address] [facility] [address], [address], [facility] [employer] [facility] 03/26/2023 17:24:23 Problems Name Problem SNOMED Code Status Onset Date Resolution Date Notes Provider Name and Address Organization Details Recorded Time Vitamin D deficiency 17890713 Active 2022 Not Available [facility] 3 22:15:20 Loss of hair 181296212 Active 2022 Not Available [facility] 3 22:15:20 Thyroid function tests abnormal 334302763 Active 2022 Not Available [facility] 3 22:15:20 Migraine 32559342 Active 2022 Not Available [facility] 3 22:15:20 Neck pain 71825332 Active 2022 Not Available [facility] 3 22:15:20 Obesity 863391991 Active 2022 Not Available [facility] 3 22:15:20 Hyperlipidemi a 18326410 Active 2022 Not Available [facility] 3 22:15:20 Iron deficiency 30118183 Active 2022 Not Available [facility] 3 22:15:20 Seasonal allergy 373809453 Active 2022 Not Available [facility] 3 22:15:20 Pain in finger 76272755 Active 2022 Not Available [facility] 22:15:19 Problem Notes None recorded. Procedures Surgical History Date Name Laterality Status Provider Name and Address Organization Details Recorded Time Ablation completed Sallie Kelley MA [facility] 01/28/2023 12:30:33 Tubal Ligation completed Sallie nguyen MA [facility] 01/28/2023 12:30:49 procedure on tendon completed Sallie Kelley MA [facility] 01/28/2023 12:31:02 Imaging Results None recorded. Procedure Notes None recorded. Medical Equipment None Reported. Allergies Allergen ID Allergen Name Allergen Category Reaction Reaction Severity Criticality Documentation Date Start Date Code Code System Note Provider Name and Address Organization Details Recorded Time 71351 ibuprofen medicatio n nausea Not available Not available 01/28/2023 5640 [facility] 12:23[facility]35 Medications Name Sig Start Date Stop [...] in Arterial blood by Pulse oximetry Systolic And Diastolic Provider Name and Address Organization Details Last Updated DateTime 3 66876.7 g 31.1 kg/m2 157.48 cm 97.7 [degF] 96 /min 98 % 98 % 126/78 mm[Hg] Sallie Kelley MA [place] [facility] [employer] 3 12:32:29 Date Recorded Body height Body mass index (BMI) Body weight Body temperature Heart rate Oxygen saturation Oxygen saturation in Arterial blood by Pulse oximetry Systolic And Diastolic Provider Name and Address Organization Details Last Updated DateTime 3 157.48 cm 31.3 kg/m2 64302.3 g 97.8 [degF] 100 /min 98 % 98 % 134/78 mm[Hg] Sallie Kelley MA [facility] [employer] [facility] 3 11:09:18 Social History Question Answer Notes LastModified by Organizat ion Details LastModified Time Tobacco Smoking Status Never Smoker Sallie Kelley MA null, [facility] [employer] [facility] 01/28/2023 12:27:51 What Is Your Level Of [...] Or The Highest Degree You Have Received? CD19497-5 Information not available 01/28/2023 Have There Been Any Changes To Your Family Or Social Situation? No Information no t available 01/28/2023 What Is The Fluoride Status Of Your Home? Unknown Information not available 01/28/2023 Are There Any Guns Present In Your Home? No Information not available 01/28/2023 Do You Use Insect Repellent Routinely? Yes Information not available 01/28/2023 [facility] 01/28/2023 What Was [...] Diagnosis SNOMED-CT Code Diagnosis ICD10 Code Diagnosis IMO Codes Diagnosis Note [id number] Preet olivia MD [facility] [address] [facility] [address] [place] [address] 01/28/2023 12:07:17 01/28/2023 13:13:35 Vitamin D deficiency 18470174 E55.9 On OTC supplement , check labs Loss of hair 470275854 L 65.9 Check labs Get appointmen t with Dermatolog y Thyroid fu nction tests abnormal 256541872 R94.6 Check labs Advised I will not run the reverse T3 as that really does not change how we would manage her thyroid Screening for disorder 729784842 Z13.9 Screening mammography 24 475160 Z12.31 Screening for malignant neoplasm of colon 648321705 Z12.11 Migraine 36714182 G43.90 9 I have advised her that I do not write for butalbital and I cannot write for cyclobenza tomas as she is taking butalbital for the migraines. I have offered her Triptan therapy and preventati ve-she has declined as they have not worked in the past Get appointmen t with Neurology per her request ER ingrid bear Neck pain 60945015 M54.2 Get neck x-ray May consider PT pending result ER ingrid bear Wants to lose weight 170 712023 Z71.3 on compounded semaglutid e from the med spaadvised her insurance will not cover semaglutid e, so I am not able to write for this Obesity 179068394 E66.9 recommend healthy, well balanced mealsfocus on lean meats, fresh vegetables , fresh fruits, whole grainsredu ce fast/proce ssed foods or eating out to no more than 1-2 times per weekaim to get 30 min of exercise most days of the week- walking is a great choicealso recommend resistance training 2-3 times per week Adult [facility] 288844294 Z00.01 Depression screening 171 344011 Z13.31 [id number] Preet olivia MD [facility] [address] [facility] [address] [place] [address] 03/24/2023 10:56:51 03/24/2023 11:29:32 Vitamin D deficiency 33412417 E55.9 On OTC supplement , check labs Loss of hair 427167138 L 65.9 Get appointmen t with Dermatolog y- has been referred to [facility] derm she will get us the records from the derm in [place] - fax number given to patientadv ised patient I don't have any medical reason to send her to infectious disease or endocrinol ogy. I can send her to allergy for allergy testing per her request. Thyroid fu nction tests abnormal 218771714 R94.6 normal on last labs 01/2023 Screening mammography 24 717827 Z12.31 Screening for malignant neoplasm of colon 577458939 Z12.11 Migraine 47798373 G43.90 9 I have advised her that I do not write for butalbital and I cannot write for cyclobenza tomas as she is taking butalbital for the migraines. I have offered her Triptan therapy and preventati ve-she has declined as they have not worked in the pastGet appointmen t with Neurology per her requestER ingrid bear Neck pain 35339270 M54.2 Get neck x-rayMay consider PT pending resultER ingrid s Wants to lose weight 170 011322 Z71.3 on compounded semaglutid e from the med spaadvised her insurance will not cover semaglutid e, so I am not able to write for this Obesity 742603122 E66.9 recommend healthy, well balanced mealsfocus on lean meats, fresh vegetables , fresh fruits, whole grainsredu ce fast/proce ssed foods or eating out to no more than 1-2 times per weekaim to get 30 min of exercise most days of the week- walking is a great choicealso recommend resistance training 2-3 times per week Hyperlipidemia 73807174 E78.5 on rosuvastat in Iron deficiency 46501320 E61.1 on OTC multivitam in with iron Seasonal allergy 3325605 04 J30.2 wants referral to chartered accountant for allergy testing Pain in finger 33173808 M79.645 check XRTdap updated in 2017 per pt Health Concerns Section Related Observation LastModified by Organization Detai ls LastModified Time None Recorded Concern Status LastModified by Organization Details LastModified Time None Recorded Advance Directives Directive None Recorded Payers Insurance Date Sequence Insurance Name Policy Number Policy Tripathi Covered Member ID Tripathi Member ID Guarantor Name 12/30/2024 1 [facility] (MEDICAID HMO) [id number] Twila Nina [id number] Twila Nina Notes Date Note Type Note Provider Name and Address Organization Details Recorded Time 01/29/20 23 text/htm charlotte Chanellcorwin presents today to establish care. She is also due for her annual wellness/preventative orders. [facility]. 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 She also has list of labs she is requesting. She has been watching a lot of [facility] videos and some questions about possible [...] She reports she has never seen a manager of enterprise for this. She reports history of migraine. [...] these are the labs the doctor on [facility] had recommended. I have advised her that [...] screening as well as screening labs. Gretel Rmoero, TELEGRAPH AND TELETYPE OPERATOR-C [address] [facility] [address], [place], [address], [facility] [employer] [facility] 01/28/2023 13:31:44 03/24/20 23 text/htm charlotte Velasco [...] hair loss. She reports she saw a manager of enterprise that she paid roa to see out in [place]. She tells me that he recommended she see Infectious Disease, endocrinology, immunology, and a holistic doctor to figure out her hair loss. I reminded her that I did give her referral to Dermatology locally over at [facility]. She has not yet set that up. She is requesting a referral to an chartered accountant. She wants to get allergy testing. She [...] no open wound. Gretel Romero, CHAPO-C [address] [facility] [address], [place], [address], [facility] [employer] [facility] 03/24/2023 13:24:24 OBGyn Episode No OBEpisode recorded.
[2025-04-11 11:35] LABS: Alanine Aminotransferase 23 U/L (6-35); Albumin Level 4.1 g/dL (3.5-5.1); Alkaline Phosphatase 79 U/L (38-126); Anion Gap 6 mmol/L (4-12); Aspartate Amino Transferase 30 U/L (14-36); Bilirubin,Total 0.3 mg/dL (0.2-1.3); Blood Urea Nitrogen 12 mg/dL (7-17); Calcium 8.8 mg/dL (8.4-10.2); Carbon Dioxide 27 mmol/L (22-30); Chloride 106 mmol/L (98-107); Cholesterol 221 mg/dL (0-200); Estimated Glomerular Filt Rate > 60; Glucose 87 mg/dL (65-110); HDL Direct 56 mg/dL; Potassium 4.1 mmol/L (3.4-5.0); Sodium 139 mmol/L (137-145); Total Protein 7.2 g/dL (6.3-8.2); Triglycerides 123 mg/dL (<150)
[2025-04-11 12:00] LABS: Free T4 Free Thyroxine 0.96 ng/dL (0.78-2.19)
[2025-04-11 12:14] LABS: Thyroid Stimulating Hormone 1.870 uIU/mL (0.465-4.680)
[2025-04-11 12:33] LABS: Vitamin B12 710.0 pg/mL (239-931)
[2025-04-12 07:09] LABS: FSH 90.9 mIU/mL (.); LH 39.4 mIU/mL (.)
== END 2025-04-11 10:35 | disposition home or self-care (01) ==
LOC: ANHLAB 10:36
PROVIDERS: Obstetrics & Gynecology; PCP Emergency Medicine; Visit Provider Emergency Medicine
DX: E55.9 Vitamin D deficiency, unspecified (principal); E78.5 Hyperlipidemia, unspecified; N95.1 Menopausal and female climacteric states
CPT/HCPCS: 36415; 80053; 80061; 82306; 82607; 83001; 83002; 84439; 84443